=== PATIENT | male | born 1945 | race Caucasian/White ===

== ENCOUNTER 2016-10-23 12:42 | Inpatient (IN) | payer MEDICARE ==
[2016-10-23] MEDS ORDERED: NORMAL SALINE 1000 ML 500 ML IV ONE ×2 (13:42→15:12)
[2016-10-23] MEDS ORDERED: IPRATROPIUM/ALBUTEROL 0.5-2.5 MG/3 ML AMPUL NEB ONE (13:42)
[2016-10-23] MEDS ORDERED: LIDOCAINE 2% URO-JET 5 ML KIT MM ONE (13:43)
--- NOTE | 2016-10-23 13:49 | ER Document Report ---
ED GI/ - General Chief Complaint: Rectal Pain Stated Complaint: RECTAL PAIN Time Seen by Provider: 10/23/16 13:27 Mode of Arrival: Medic Information source: Patient Notes: Patient presents complaining of diarrhea rectal pain for the past 12 days. Patient complains of lower abdominal pain and inability to void that started this morning. Patient states he has been leaking urine but has been unable to empty his bladder. Patient denies any fever. Patient is a poor historian and denies any medical history or surgeries although when confronted with evidence of surgery, does acknowledge that he has had toe amputations as well as cataract surgery in the past. Patient does states that he has had a cough, but states that this cough is something chronic and not new. TRAVEL OUTSIDE OF THE [place] IN LAST 30 DAYS: No - HPI Patient complains to provider of: Abdominal pain, Diarrhea, Urinary retention - This morning. No: Vomiting Onset: Other - Diarrhea 12 days, urinary retention today Timing/Duration: Persistent Quality of pain: Burning Pain Level: 5 Location: Suprapubic Associated symptoms: Diarrhea, Urinary retention. denies: Chest pain, Fever, Nausea Exacerbated by: Denies Relieved by: Denies Similar symptoms previously: No Recently seen / treated by doctor: No - Related Data Allergies/Adverse Reactions: No Known Allergies Allergy (Verified 10/23/16 16:22) Past Medical History - General Information source: Patient Cannot obtain history due to: Other - pt poor historian - Social History Smoking Status: Current Every Day Smoker - Packs per day Frequency of alcohol use: Heavy - drinks 6 pack beer daily Drug Abuse: None Occupation: none Lives with: Alone Family History: Reviewed & Not Pertinent - Medical History Medical History: Negative Past Surgical History: Reports: Hx Orthopedic Surgery - toe amputation, Other - cataract Review of Systems - Review of Systems Constitutional: No symptoms reported. denies: Fever, Recent illness EENT: No symptoms reported Cardiovascular: No symptoms reported. denies: Chest pain, Dizziness Respiratory: Cough - chronic. denies: Hemoptysis, Short of breath Gastrointestinal: Abdominal pain, Diarrhea, Fecal incontinence. denies: Nausea , Vomiting, Poor appetite, Black stools, Rectal bleeding Genitourinary: Retention - since this am Male Genitourinary: No symptoms reported Musculoskeletal: Other - chronic wound to right foot. denies: Back pain Skin: Other - chronic ulcer to right foot Hematologic/Lymphatic: No symptoms reported Neurological/Psychological: No symptoms reported Physical Exam - Vital signs Vitals: Temp Resp Pulse Ox 98.2 F 16 95 10/23/16 13:02 10/23/16 13:02 10/23/16 13:02 - General General appearance: Appears well, Alert In distress: None - HEENT Head: Normocephalic, Atraumatic Eyes: Normal Conjunctiva: Normal Nasal: Normal Mouth/Lips: Normal Mucous membranes: Normal Neck: Normal, Supple. No: Lymphadenopathy - Respiratory Respiratory status: No respiratory distress Chest status: Nontender Breath sounds: Nonproductive cough, Rhonchi, Wheezing Chest palpation: Normal - Cardiovascular Rhythm: Regular Heart sounds: S1 appreciated, S2 appreciated - Abdominal Inspection: Normal Distension: Distended bladder Tenderness: Tender - suprapubic - Rectal Tenderness: Yes Notes: Patient with skin erythema and breakdown to perirectal area and sacral area pain for contact dermatitis versus early developing cellulitis - Back Back: Normal, Nontender. No: CVA tenderness - Extremities General upper extremity: Normal strength. No: Normal color - yellow discoloration of fingers General lower extremity: Normal strength, Other - wound to right foot, hx r great toe, r 2nd toe amputation Foot: Edema, Other - erythema surrounding wounds to plantar surfarce of right foot, no purulent drainage - Neurological Neuro grossly intact: Yes Dingess Coma Scale Eye Opening: Spontaneous Erin Coma Scale Verbal: Oriented Erin Coma Scale Motor: Obeys Commands Dingess Coma Scale Total: 15 - Skin Skin Temperature: Warm Skin Moisture: Dry Skin Color: Erythema - sacral erythema with tender ulcerations between gluteal cleft Skin irregularity: other - foot ulcer x 2 right plantar foot. negative: Abscess Irregularity with: Tenderness, Inflammation Course - Re-evaluation Re-evalutation: 10/23/16 14:23 guadarrama inserted, 1700 ml drained per RN, abdominal pain now resolved. 10/23/16 16:34 Dr Rios to bedside examination, recommends giving an additional liter of IV fluids while remaining lab and reports are pending. Recommend consulting with home health for follow-up on Tuesday for recheck. 10/23/16 17:38 lactic acid results reviewed with dr Rios, recommends consulting with hospitalist for admission and treating with vancomycin and zosyn. Pt sleeping, arouses easily to voice, pt agrees with plan for admission. 10/23/16 17:[address] Velazquez who agrees to accept pt for admission. 10/23/16 17:54 - Vital Signs Vital signs: Temp Pulse Resp BP Pulse Ox 97.4 F 14 85/55 L 95 10/23/16 17:43 10/23/16 17:30 10/23/16 17:30 10/23/16 17:30 - Laboratory Result Diagrams: 10/23/16 13:56 10/23/16 13:56 Laboratory results interpreted by me: 10/23/16 10/23/16 10/23/16 13:56 13:56 13:56 RBC 3.71 L Hgb 12.5 L Hct 36.5 L MCV 99 H MCH 33.8 H Seg Neutrophils % 80.2 H Lymphocytes % 10.9 L Sodium 124.9 L Chloride 85 L Lactic Acid Calcium 7.9 L Total Bilirubin 1.4 H Direct Bilirubin 0.8 H AST 162 H Alkaline Phosphatase 225 H Ammonia < 8.7 L Albumin 2.8 L Urine Urobilinogen 10/23/16 10/23/16 13:56 14:20 RBC Hgb Hct MCV MCH Seg Neutrophils % Lymphocytes % Sodium Chloride Lactic Acid 4.0 H Calcium Total Bilirubin Direct Bilirubin AST Alkaline Phosphatase Ammonia Albumin Urine Urobilinogen 2.0 H - Diagnostic Test Radiology reviewed: Reports reviewed Discharge - Discharge Clinical Impression: Hyponatremia, Urinary retention Diarrhea Qualifiers: Diarrhea type: unspecified type Qualified Code(s): R19.7 - Diarrhea, unspecified Cellulitis Qualifiers: Site of cellulitis: extremity Site of cellulitis of extremity: lower extremity Laterality: right Qualified Code(s): L03.115 - Cellulitis of right lower limb Hypotension Qualifiers: Hypotension type: unspecified hypotension type Qualified Code(s): I95.9 - Hypotension, unspecified Condition: Stable Disposition: HOME, SELF-CARE Admitting Provider: Hospitalist
[2016-10-23] MEDS ORDERED: TRAMADOL HCL 50 MG TABLET PO ONE (13:55)
[2016-10-23 14:24] LABS: ABSOLUTE BASOPHILS # (AUTO) 0.1 10^3/uL (0.0-0.2); ABSOLUTE EOSINOPHILS # (AUTO) 0.1 10^3/uL (0.0-0.6); ABSOLUTE LYMPHOCYTES (AUTO) 0.9 10^3/uL (0.5-4.7); ABSOLUTE MONOCYTES (AUTO) 0.5 10^3/uL (0.1-1.4); ABSOLUTE NEUT (AUTO) 6.7 10^3/uL (1.7-8.2); BASOPHILS % (AUTO) 0.6 % (0-2); EOSINOPHILS % (AUTO) 1.8 % (0-6); HEMATOCRIT 36.5 % (37.9-51.0); HEMOGLOBIN 12.5 g/dL (13.5-17.0); LYMPHOCYTES % (AUTO) 10.9 % (13-45); MEAN CORPUSCULAR HEMOGLOBIN 33.8 pg (27.0-33.4); MEAN CORPUSCULAR HGB CONC 34.3 g/dL (32.0-36.0); MEAN CORPUSCULAR VOLUME 99 fl (80-97); MONOCYTES % (AUTO) 6.5 % (3-13); RED BLOOD COUNT 3.71 10^6/uL (4.35-5.55); RED CELL DISTRIBUTION WIDTH 13.2 % (11.5-14.0); SEGMENTED NEUTROPHILS % (AUTO) 80.2 % (42-78); WHITE BLOOD COUNT 8.3 10^3/uL (4.0-10.5)
[2016-10-23 14:45] LABS: ALANINE AMINOTRANSFERASE 67 U/L (21-72); ALBUMIN 2.8 g/dL (3.5-5.0); ALCOHOL 88 mg/dL (NONE DETECTED); ALKALINE PHOSPHATASE 225 U/L (38-126); ANION GAP 13 (5-19); ASPARTATE AMINO TRANSFERASE 162 U/L (17-59); BILIRUBIN,DIRECT 0.8 mg/dL (0.0-0.4); BILIRUBIN,TOTAL 1.4 mg/dL (0.2-1.3); BLOOD UREA NITROGEN 10 mg/dL (7-20); CALCIUM 7.9 mg/dL (8.4-10.2); CARBON DIOXIDE 27 mmol/L (22-30); CHLORIDE 85 mmol/L (98-107); GLUCOSE 89 mg/dL (75-110); POTASSIUM 3.7 mmol/L (3.6-5.0); SODIUM 124.9 mmol/L (137-145); TOTAL PROTEIN 7.1 g/dL (6.3-8.2)
[2016-10-23 15:40] LABS: APPEARANCE,URINE SLIGHTLY-CLOUDY; BILIRUBIN,URINE NEGATIVE (NEGATIVE); GLUCOSE, URINE NEGATIVE (NEGATIVE); KETONES,URINE NEGATIVE (NEGATIVE); LEUKOCYTE ESTERASE,URINE NEGATIVE (NEGATIVE); NITRITE,URINE NEGATIVE (NEGATIVE); PROTEIN,URINE NEGATIVE (NEGATIVE); URINE SPECIFIC GRAVITY 1.004
[2016-10-23 15:42] LABS: ADD ON TESTING BLD IN LAB ACKNOWLEDGE
[2016-10-23 15:55] LABS: MAGNESIUM 1.8 mg/dL (1.6-2.3)
[2016-10-23] MEDS ORDERED: HYDROCODONE/ACETAMINOPHEN 5-325 MG TABLET PO ONE (16:21)
[2016-10-23] MEDS ORDERED: NORMAL SALINE 1000 ML 1,000 ML IV ONE (16:33)
[2016-10-23] MEDS ORDERED: VANCOMYCIN HCL INJ 1000 MG VIAL IV ONE (17:37)
[2016-10-23] MEDS ORDERED: PIPERACILLIN/TAZOBACTAM 3.375 GM VIAL IV ONE (17:38)
[2016-10-23] MEDS ORDERED: NORMAL SALINE 1000 ML 1,000 ML IV PRN (18:17)
[2016-10-23] MEDS ORDERED: ONDANSETRON HCL INJ/PF 4 MG/2 ML SDV IV PRN (18:28)
[2016-10-23] MEDS ORDERED: ACETAMINOPHEN 325 MG TABLET PO PRN (18:28)
[2016-10-23] MEDS ORDERED: LOPERAMIDE HCL 2 MG CAPSULE PO PRN (18:38)
[2016-10-23] MEDS ORDERED: ERTAPENEM SODIUM INJ 1 GM VIAL IV SCH ×2 (18:45→19:00)
[2016-10-23] MEDS ORDERED: LORAZEPAM INJ 2 MG/1 ML VIAL IV PRN (18:58)
[2016-10-23] MEDS ORDERED: ERTAPENEM SODIUM 1 GM in NORMAL SALINE 50 ML IV ONE (19:00)
[2016-10-23] MEDS ORDERED: ERTAPENEM SODIUM INJ 1 GM VIAL IV PRN (19:01)
[2016-10-23 19:18] LABS: PROTHROMBIN TIME 13.1 SEC (11.4-15.4)
--- NOTE | 2016-10-23 19:48 | HISTORY AND PHYSICAL E ---
History and Physical NAME: ROSANNE WILCOX : 1945 AGE: 70Y ADMITTED: 10/23/2016 ROOM: ED19 PRIMARY CARE PHYSICIAN: Joshua Flores. CHIEF COMPLAINT: Diarrhea. HISTORY OF PRESENT ILLNESS: The patient is a 70-year-old male who lives alone, who drinks heavy alcohol, apparently came to the emergency room because of diarrhea of 12 days' duration. It is associated with lower abdominal pain earlier today. There is decreased urine output. Denies any chills or fever. No nausea or vomiting. The patient is able to tolerate oral intake. No recent antibiotic intake. No recent travel. The patient states that he is not ambulatory for 5 years now. No exposure to someone sick with diarrhea. In the emergency room, the patient was found to have urinary retention requiring Guadarrama catheter, and the patient's abdominal pain resolved upon placement of guadarrama catheter. The patient, however, had a decubitus ulcers stage 2 and a skin breakdown from recurrent diarrhea. Blood pressure was noted to be low with systolic in the 80s. Normal saline boluses were given, and the patient still had hypotension. Lactic acid level was elevated at 4. The patient was then referred for admission. PAST MEDICAL HISTORY: 1. Right foot ulcer. 2. Alcohol abuse. PAST SURGICAL HISTORY: 1. Amputation of the toe. 2. Cataract surgery. ALLERGIES: No reported drug allergies. SOCIAL HISTORY: The patient is a current tobacco abuser. There is heavy alcohol use. Denies drug abuse. FAMILY HISTORY: Negative for any illness. MEDICATIONS: He denies taking any medications. REVIEW OF SYSTEMS: Other than stated in the history, the patient denies any chills or fever. No dizziness or syncope. No sinus congestion. No cough. No sore throat. No chest congestion. No chest pain. No PND, orthopnea. Denies any melena, hematochezia, hematemesis. Denies dysuria as well. The patient ambulates using a walker and a which. PHYSICAL EXAMINATION: GENERAL: The patient is conscious, coherent, responds to questions appropriately. He is not in acute distress. The patient is awake. VITAL SIGNS: Blood pressure 97/62. Pulse 88. Respirations 14. Temperature 97.4. HEENT: Normocephalic/atraumatic. Pale palpebral conjunctivae. Anicteric sclerae. Pupils are sluggish. Bilateral arcus senilis. No nasal or oral discharge. Oral mucosa is dry. NECK: There is no jugular venous distention. Neck is supple with no JVD or bruit. No anterior neck mass was noticed with swallowing. CHEST: Symmetrical in expansion with no retraction. Lungs are clear to auscultation bilateral. No rales or wheezing were noted. HEART: Regular with no gallops or murmurs. ABDOMEN: Soft, nontender, nondistended. Bowel sounds were present, slightly hyperactive. No rebound. No guarding. No bruit. LOWER EXTREMITIES: Edema +1 bilateral. There is a dry ulcer on the leg bilaterally that is healing. Likewise, there is a foot ulcer on the right with scabbing but no purulent drainage. Dressing seems to be clean. B/L redness and equal temperature to touch. SKIN: On the skin on the buttocks and on the sacral area, there is a stage-2 decubitus ulcer and skin breakdown w/ surrounding redness but no foul smelling drainage.. INITIAL LABORATORY: WBC 8.3, hemoglobin 12.5, hematocrit 36.5, platelets 199,000. Sodium 124, potassium 3.7, creatinine is normal, lactic acid level of 4, AST mildly elevated at 162, alkaline phosphatase at 225. Alcohol level of 88. Abdominal x-ray: No acute abnormality. Foot x-ray shows soft tissue irregularity on the plantar aspect of the right foot. ASSESSMENT: 1. Hypotension, likely secondary to dehydration. 2. Elevated lactic acid level, probably related to hypotension. 3. Hyponatremia. 4. Diarrhea, probably infectious colitis. 5. Stage-2 decubitus ulcer of the buttocks and sacrum. 6. Urinary retention. 7. Right foot ulcer, chronic. 8. Alcohol abuse. PLAN: The patient will be admitted to [facility]. We will hydrate the patient with normal saline. We will culture the blood as well as the urine. In the meantime, I will apply Eucerin cream for the patient's decubitus ulcer. We will monitor serum sodium. We will begin intravenous antibiotic with Invanz. DVT prophylaxis with Lovenox will be placed. I will put the patient on supplemental thiamine, folic acid, and multivitamin and give Ativan as needed if withdrawal symptoms occur. Further testing depends on the initial evaluation as outlined above. DICTATING PHYSICIAN: REANNA LAFLEUR M.D. [id number] PHY#: [id number] ID: [id number] JOB#: [id number] ACCT: [id number] cc:REANNA LAFLEUR M.D. > MTDD
[2016-10-23] MEDS: MINERAL OIL/PETROLATUM,WHITE CREAM 114 GM TP SCH (23:39)
[2016-10-24] MEDS: NORMAL SALINE 1000 ML 1,000 ML IV PRN ×2 (03:49→21:26)
[2016-10-24 05:03] LABS: ABSOLUTE EOSINOPHILS # (AUTO) 0.1 10^3/uL (0.0-0.6); ABSOLUTE LYMPHOCYTES (AUTO) 0.7 10^3/uL (0.5-4.7); ABSOLUTE MONOCYTES (AUTO) 0.5 10^3/uL (0.1-1.4); ABSOLUTE NEUT (AUTO) 8.4 10^3/uL (1.7-8.2); BASOPHILS % (AUTO) 0.4 % (0-2); EOSINOPHILS % (AUTO) 0.7 % (0-6); HEMATOCRIT 31.8 % (37.9-51.0); HGB HCT DIFFERENCE 1.2; LYMPHOCYTES % (AUTO) 6.7 % (13-45); MEAN CORPUSCULAR HEMOGLOBIN 34.1 pg (27.0-33.4); MEAN CORPUSCULAR HGB CONC 34.6 g/dL (32.0-36.0); MEAN CORPUSCULAR VOLUME 99 fl (80-97); MONOCYTES % (AUTO) 5.5 % (3-13); RED BLOOD COUNT 3.23 10^6/uL (4.35-5.55); RED CELL DISTRIBUTION WIDTH 13.1 % (11.5-14.0); SEGMENTED NEUTROPHILS % (AUTO) 86.7 % (42-78); WHITE BLOOD COUNT 9.7 10^3/uL (4.0-10.5)
[2016-10-24 05:26] LABS: ANION GAP 5 (5-19); BLOOD UREA NITROGEN 10 mg/dL (7-20); CALCIUM 7.4 mg/dL (8.4-10.2); CARBON DIOXIDE 27 mmol/L (22-30); CHLORIDE 95 mmol/L (98-107); CREATININE RESULT 0.64 mg/dL (0.52-1.25); GLUCOSE 91 mg/dL (75-110); MAGNESIUM 1.8 mg/dL (1.6-2.3); PHOSPHORUS 3.4 mg/dL (2.5-4.5); POTASSIUM 4.1 mmol/L (3.6-5.0); SODIUM 126.7 mmol/L (137-145)
[2016-10-24] MEDS: LANSOPRAZOLE 30 MG TAB.RAP.DR PO SCH (05:37)
[2016-10-24] MEDS: ENOXAPARIN SODIUM INJ 40 MG/0.4 ML DISP.SYRIN SUBCUT SCH (10:50)
[2016-10-24] MEDS: ERTAPENEM SODIUM 1 GM in NORMAL SALINE 50 ML IV SCH (10:52)
[2016-10-24] MEDS: MINERAL OIL/PETROLATUM,WHITE CREAM 114 GM TP SCH ×4 (10:53→21:24)
--- NOTE | 2016-10-24 11:18 | PDOC PROGRESS REPORT ---
Subjective Progress Note for:: 10/24/16 Subjective:: Diarrhea resolved. No cough, SOB, PND, orthopnea. No N/V/chills nor fever. Feeling better this morning. Physical Exam Vital Signs: Temp Pulse Resp BP Pulse Ox 98.0 F 97 18 116/70 96 10/24/16 07:18 10/24/16 07:18 10/24/16 07:18 10/24/16 07:18 10/24/16 07:18 Intake & Output 10/23/16 10/24/16 10/25/16 06:59 06:59 06:59 Intake Total 1322 Output Total 1300 Balance 22 Weight 93.3 kg General appearance: PRESENT: no acute distress, cooperative Head exam: PRESENT: normocephalic Eye exam: PRESENT: EOMI Ear exam: ABSENT: drainage Mouth exam: PRESENT: dry mucosa Neck exam: ABSENT: JVD Respiratory exam: PRESENT: clear to auscultation pastora. ABSENT: rhonchi, wheezes Cardiovascular exam: PRESENT: RRR. ABSENT: gallop GI/Abdominal exam: PRESENT: normal bowel sounds, soft. ABSENT: distended, tenderness Extremities exam: PRESENT: +1 edema - B/L Neurological exam: PRESENT: alert, awake, oriented to situation Skin exam: PRESENT: dry, warm. ABSENT: cyanosis Results Laboratory Results: 10/24/16 04:12 10/24/16 04:12 10/24/16 10/24/16 04:12 04:12 WBC 9.7 RBC 3.23 L Hgb 11.0 L Hct 31.8 L MCV 99 H MCH 34.1 H MCHC 34.6 RDW 13.1 Plt Count 145 L Seg Neutrophils % 86.7 H Lymphocytes % 6.7 L Monocytes % 5.5 Eosinophils % 0.7 Basophils % 0.4 Absolute Neutrophils 8.4 H Absolute Lymphocytes 0.7 Absolute Monocytes 0.5 Absolute Eosinophils 0.1 Absolute Basophils 0.0 Sodium 126.7 L Potassium 4.1 Chloride 95 L Carbon Dioxide 27 Anion Gap 5 BUN 10 Creatinine 0.64 Est GFR ( Amer) > 60 Est GFR (Non-Af Amer) > 60 Glucose 91 Calcium 7.4 L Phosphorus 3.4 Magnesium 1.8 Impressions: Renal Ultrasound 10/23/16 00:00 IMPRESSION: Normal sonographic appearance of the kidneys. The bladder is decompressed by a Bazzi catheter. Acute Abdomen Series 10/23/16 13:41 IMPRESSION: NO RADIOGRAPHIC EVIDENCE FOR ACUTE ABDOMINAL DISEASE. Foot X-Ray 10/23/16 14:22 IMPRESSION: Soft tissue irregularity involving the plantar surfaces of the forefoot in this patient with marked postsurgical and posttraumatic change. While no definite periosteal reaction is seen to confirm osteomyelitis, given the baseline irregularity of the structures, this entity is not entirely excluded. Assessment & Plan - Diagnosis (1) Sepsis Qualifiers: Sepsis type: sepsis due to unspecified organism Qualified Code(s): A41.9 - Sepsis, unspecified organism Is this a current diagnosis for this admission?: Yes (2) Diarrhea Qualifiers: Diarrhea type: infectious Qualified Code(s): A09 - Infectious gastroenteritis and colitis, unspecified Is this a current diagnosis for this admission?: Yes (3) Hyponatremia Is this a current diagnosis for this admission?: Yes (4) Hypotension Qualifiers: Hypotension type: unspecified hypotension type Qualified Code(s): I95.9 - Hypotension, unspecified Is this a current diagnosis for this admission?: Yes (5) Urinary retention Is this a current diagnosis for this admission?: Yes (6) Decubitus ulcer Qualifiers: Pressure ulcer location: contiguous region involving back and buttock Pressure ulcer stage: stage 2 Laterality: unspecified laterality Qualified Code(s): L89.42 - Pressure ulcer of contiguous site of back, buttock and hip, stage 2 Is this a current diagnosis for this admission?: Yes (7) Foot ulcer, right Qualifiers: Non-pressure ulcer stage: unspecified non-pressure ulcer stage Qualified Code(s): L97.519 - Non-pressure chronic ulcer of other part of right foot with unspecified severity Is this a current diagnosis for this admission?: Yes (8) Ambulatory dysfunction Is this a current diagnosis for this admission?: Yes - Time Time Spent with patient: 25-34 minutes - Plan Summary Plan Summary: Begin vancomycin. Continue invanz. Monitor electrolytes and creatinine. Follow cultures. Continue IV hydration.
[2016-10-24] MEDS ORDERED: VANCOMYCIN HCL 1,250 MG in DEXTROSE 5%-WATER 250 ML IV ONE (12:00)
[2016-10-24] MEDS: NORMAL SALINE 1000 ML 1,000 ML with THIAMINE HCL 100 MG, MVI, ADULT NO.1 WITH VIT K 10 ... IV SCH ×4 (12:06)
[2016-10-24] MEDS ORDERED: TRAMADOL HCL 50 MG TABLET PO PRN (14:42)
--- NOTE | 2016-10-24 17:10 | EKG REPORT ---
SEVERITY:- ABNORMAL ECG - ATRIAL FIBRILLATION LOW VOLTAGE THROUGHOUT BORDERLINE R WAVE PROGRESSION, ANTERIOR LEADS BORDERLINE PROLONGED QT INTERVAL : Confirmed by: Gretchen Herring MD 24-Oct-2016 17:09:58
[2016-10-24] MEDS ORDERED: ERTAPENEM SODIUM 1 GM in NORMAL SALINE 50 ML IV SCH (18:00)
[2016-10-24] MEDS: VANCOMYCIN HCL 1,250 MG in DEXTROSE 5%-WATER 250 ML IV SCH (18:40)
[2016-10-25] MEDS: VANCOMYCIN HCL 1,250 MG in DEXTROSE 5%-WATER 250 ML IV SCH ×2 (03:07→09:27)
[2016-10-25] MEDS: NORMAL SALINE 1000 ML 1,000 ML IV PRN ×2 (03:10→16:06)
[2016-10-25 05:08] LABS: ANION GAP 5 (5-19); BLOOD UREA NITROGEN 8 mg/dL (7-20); CALCIUM 7.4 mg/dL (8.4-10.2); CARBON DIOXIDE 27 mmol/L (22-30); CHLORIDE 98 mmol/L (98-107); CREATININE RESULT 0.55 mg/dL (0.52-1.25); GLUCOSE 96 mg/dL (75-110); POTASSIUM 3.3 mmol/L (3.6-5.0); SODIUM 130.4 mmol/L (137-145)
[2016-10-25] MEDS: LANSOPRAZOLE 30 MG TAB.RAP.DR PO SCH (05:53)
[2016-10-25] MEDS: MINERAL OIL/PETROLATUM,WHITE CREAM 114 GM TP SCH ×4 (09:26→21:29)
[2016-10-25] MEDS ORDERED: VANCOMYCIN HCL INJ 1000 MG VIAL IV SCH (10:00)
[2016-10-25] MEDS: ENOXAPARIN SODIUM INJ 40 MG/0.4 ML DISP.SYRIN SUBCUT SCH (10:07)
--- NOTE | 2016-10-25 10:31 | PDOC PROGRESS REPORT ---
Subjective Progress Note for:: 10/25/16 Subjective:: Slightly improved today than yesterday according to the patient. Staff reports wheezing at times, he had hx of smoking. No temperature spikes, no respiratory distress reported. No reported diarrhea. Blood cultures growing gram-positive cocci and gram-negative rods. Physical Exam Vital Signs: Temp Pulse Resp BP Pulse Ox 97.4 F 89 19 111/72 91 L 10/25/16 07:55 10/25/16 07:55 10/25/16 07:55 10/25/16 07:55 10/25/16 07:55 Intake & Output 10/24/16 10/25/16 10/26/16 06:59 06:59 06:59 Intake Total 1322 3646 Output Total 1300 1075 Balance 22 2571 Weight 93.3 kg 100.4 kg General appearance: PRESENT: no acute distress, cooperative Head exam: PRESENT: normocephalic Eye exam: PRESENT: conjunctiva pale, EOMI Mouth exam: PRESENT: moist, neck supple Neck exam: ABSENT: JVD Respiratory exam: PRESENT: rhonchi - few bilateral. ABSENT: wheezes Cardiovascular exam: PRESENT: gallop, RRR GI/Abdominal exam: PRESENT: soft. ABSENT: distended, tenderness Extremities exam: PRESENT: other - Lower extremity edema improved, ulcers stable. Neurological exam: PRESENT: alert, awake Skin exam: PRESENT: dry, warm. ABSENT: cyanosis Results Laboratory Results: 10/24/16 04:12 10/25/16 04:03 10/25/16 04:03 Sodium 130.4 L Potassium 3.3 L Chloride 98 Carbon Dioxide 27 Anion Gap 5 BUN 8 Creatinine 0.55 Est GFR ( Amer) > 60 Est GFR (Non-Af Amer) > 60 Glucose 96 Calcium 7.4 L Impressions: Renal Ultrasound 10/23/16 00:00 IMPRESSION: Normal sonographic appearance of the kidneys. The bladder is decompressed by a Bazzi catheter. Acute Abdomen Series 10/23/16 13:41 IMPRESSION: NO RADIOGRAPHIC EVIDENCE FOR ACUTE ABDOMINAL DISEASE. Foot X-Ray 10/23/16 14:22 IMPRESSION: Soft tissue irregularity involving the plantar surfaces of the forefoot in this patient with marked postsurgical and posttraumatic change. While no definite periosteal reaction is seen to confirm osteomyelitis, given the baseline irregularity of the structures, this entity is not entirely excluded. Assessment & Plan - Diagnosis (1) Sepsis Qualifiers: Sepsis type: sepsis due to unspecified organism Qualified Code(s): A41.9 - Sepsis, unspecified organism Is this a current diagnosis for this admission?: Yes (2) Diarrhea Qualifiers: Diarrhea type: infectious Qualified Code(s): A09 - Infectious gastroenteritis and colitis, unspecified Is this a current diagnosis for this admission?: Yes (3) Hyponatremia Is this a current diagnosis for this admission?: Yes (4) Hypotension Qualifiers: Hypotension type: unspecified hypotension type Qualified Code(s): I95.9 - Hypotension, unspecified Is this a current diagnosis for this admission?: Yes (5) Urinary retention Is this a current diagnosis for this admission?: Yes (6) Decubitus ulcer Qualifiers: Pressure ulcer location: contiguous region involving back and buttock Pressure ulcer stage: stage 2 Laterality: unspecified laterality Qualified Code(s): L89.42 - Pressure ulcer of contiguous site of back, buttock and hip, stage 2 Is this a current diagnosis for this admission?: Yes (7) Foot ulcer, right Qualifiers: Non-pressure ulcer stage: unspecified non-pressure ulcer stage Qualified Code(s): L97.519 - Non-pressure chronic ulcer of other part of right foot with unspecified severity Is this a current diagnosis for this admission?: Yes (8) Ambulatory dysfunction Is this a current diagnosis for this admission?: Yes - Time Time Spent with patient: 25-34 minutes - Plan Summary Plan Summary: Continue current antibiotics, follow cultures, replace potassium and recheck electrolytes in the morning. We will discontinue IV fluids, give as needed nebulizer, obtain a chest x-ray. If the wheezing persists, patient may need to be treated for underlying COPD. Continue wound care.
--- NOTE | 2016-10-25 11:22 | RADIOLOGY REPORT (SQ) ---
EXAM DESCRIPTION: CHEST SINGLE VIEW COMPLETED DATE/TIME: 10/25/2016 11:08 am REASON FOR STUDY: SOB COMPARISON: None. EXAM PARAMETERS: NUMBER OF VIEWS: One view. TECHNIQUE: Single frontal radiographic view of the chest acquired. RADIATION DOSE: NA LIMITATIONS: None. FINDINGS: LUNGS AND PLEURA: Elevated right hemidiaphragm. Ill-defined airspace disease in the right lung base. Ill-defined oval density in the mid right lung. Left lung clear. MEDIASTINUM AND HILAR STRUCTURES: No masses. Contour normal. HEART AND VASCULAR STRUCTURES: Heart normal in size. Normal vasculature. BONES: No acute findings. HARDWARE: None in the chest. OTHER: No other significant finding. IMPRESSION: ILL-DEFINED AIRSPACE DISEASE IN THE RIGHT LUNG BASE WHICH HAS DEVELOPED SINCE THE PRIOR STUDY, CONCERNING FOR PNEUMONIA. UNDERLYING MASS IN THE MID RIGHT LUNG CANNOT BE EXCLUDED. RECOMMEN D FOLLOW-UP CHEST X-RAY AFTER TREATMENT AND IF THE FINDINGS PERSIST THEN CT WOULD BE INDICATED. TECHNICAL DOCUMENTATION: JOB ID: [id number]
[2016-10-25] MEDS: ALBUTEROL SULFATE 0.042% NEB (1.25 MG/3 ML) AMPUL NEB PRN ×2 (11:29→19:48)
[2016-10-25] MEDS: ERTAPENEM SODIUM 1 GM in NORMAL SALINE 50 ML IV SCH (12:11)
[2016-10-25] MEDS: POTASSI CL 20 MEQ/50 ML RIDER 50 ML IV SCH ×3 (12:13→15:54)
[2016-10-25] MEDS: NORMAL SALINE 1000 ML 1,000 ML with THIAMINE HCL 100 MG, MVI, ADULT NO.1 WITH VIT K 10 ... IV SCH ×4 (12:51)
[2016-10-26 05:33] LABS: BLOOD UREA NITROGEN 6 mg/dL (7-20); CALCIUM 7.7 mg/dL (8.4-10.2); CARBON DIOXIDE 28 mmol/L (22-30); CHLORIDE 102 mmol/L (98-107); CREATININE RESULT 0.51 mg/dL (0.52-1.25); GLUCOSE 94 mg/dL (75-110); POTASSIUM 3.9 mmol/L (3.6-5.0); SODIUM 134.1 mmol/L (137-145)
[2016-10-26 05:35] LABS: ANION GAP 4 (5-19)
[2016-10-26] MEDS: LANSOPRAZOLE 30 MG TAB.RAP.DR PO SCH (05:40)
[2016-10-26] MEDS: VANCOMYCIN HCL 1,250 MG in DEXTROSE 5%-WATER 250 ML IV SCH ×2 (05:41→17:54)
[2016-10-26] MEDS: ERTAPENEM SODIUM 1 GM in NORMAL SALINE 50 ML IV SCH (09:44)
[2016-10-26] MEDS: ENOXAPARIN SODIUM INJ 40 MG/0.4 ML DISP.SYRIN SUBCUT SCH (09:45)
[2016-10-26] MEDS: MINERAL OIL/PETROLATUM,WHITE CREAM 114 GM TP SCH ×4 (09:46→22:16)
--- NOTE | 2016-10-26 12:14 | PDOC PROGRESS REPORT ---
Subjective Progress Note for:: 10/26/16 Subjective:: Patient initially worked with speech therapy and did have some coughing but refused to do any further testing and refused to have a modified barium swallow Physical Exam Vital Signs: Temp Pulse Resp BP Pulse Ox 97.4 F 94 21 H 97/54 L 92 10/26/16 10:41 10/26/16 10:41 10/26/16 10:41 10/26/16 10:41 10/26/16 10:41 Intake & Output 10/25/16 10/26/16 10/27/16 06:59 06:59 06:59 Intake Total 3646 2820 Output Total 1075 1000 Balance 2571 1820 Weight 100.4 kg 100.6 kg General appearance: PRESENT: no acute distress Eye exam: PRESENT: conjunctiva pink. ABSENT: scleral icterus Mouth exam: PRESENT: moist, tongue midline Neck exam: ABSENT: JVD Respiratory exam: PRESENT: rhonchi - Coarse rhonchi bilaterally. ABSENT: rales , wheezes Cardiovascular exam: PRESENT: RRR. ABSENT: diastolic murmur, rubs, systolic murmur GI/Abdominal exam: PRESENT: normal bowel sounds, soft. ABSENT: distended, guarding, mass, organolmegaly, rebound, tenderness Extremities exam: ABSENT: calf tenderness, clubbing, pedal edema Neurological exam: PRESENT: alert, awake, oriented to person, oriented to place , oriented to time, oriented to situation, CN II-XII grossly intact. ABSENT: motor sensory deficit Psychiatric exam: PRESENT: appropriate affect Skin exam: PRESENT: dry, intact, warm. ABSENT: cyanosis, rash Results Laboratory Results: 10/24/16 04:12 10/26/16 04:11 10/26/16 04:11 Sodium 134.1 L Potassium 3.9 Chloride 102 Carbon Dioxide 28 Anion Gap 4 L BUN 6 L Creatinine 0.51 L Est GFR ( Amer) > 60 Est GFR (Non-Af Amer) > 60 Glucose 94 Calcium 7.7 L Impressions: Renal Ultrasound 10/23/16 00:00 IMPRESSION: Normal sonographic appearance of the kidneys. The bladder is decompressed by a Bazzi catheter. Acute Abdomen Series 10/23/16 13:41 IMPRESSION: NO RADIOGRAPHIC EVIDENCE FOR ACUTE ABDOMINAL DISEASE. Foot X-Ray 10/23/16 14:22 IMPRESSION: Soft tissue irregularity involving the plantar surfaces of the forefoot in this patient with marked postsurgical and posttraumatic change. While no definite periosteal reaction is seen to confirm osteomyelitis, given the baseline irregularity of the structures, this entity is not entirely excluded. Chest X-Ray 10/25/16 00:00 IMPRESSION: ILL-DEFINED AIRSPACE DISEASE IN THE RIGHT LUNG BASE WHICH HAS DEVELOPED SINCE THE PRIOR STUDY, CONCERNING FOR PNEUMONIA. UNDERLYING MASS IN THE MID RIGHT LUNG CANNOT BE EXCLUDED. RECOMMEND FOLLOW-UP CHEST X-RAY AFTER TREATMENT AND IF THE FINDINGS PERSIST THEN CT WOULD BE INDICATED. Assessment & Plan - Diagnosis (1) Sepsis Qualifiers: Sepsis type: sepsis due to unspecified organism Qualified Code(s): A41.9 - Sepsis, unspecified organism Is this a current diagnosis for this admission?: YesPlan: Patient had sepsis from colitis. The patient has been improving with antibiotics. Patient is on vancomycin and ertapenem (2) Hypotension Qualifiers: Hypotension type: unspecified hypotension type Qualified Code(s): I95.9 - Hypotension, unspecified Is this a current diagnosis for this admission?: YesPlan: Resolved (3) Decubitus ulcer Qualifiers: Pressure ulcer location: contiguous region involving back and buttock Pressure ulcer stage: stage 2 Laterality: unspecified laterality Qualified Code(s): L89.42 - Pressure ulcer of contiguous site of back, buttock and hip, stage 2 Is this a current diagnosis for this admission?: YesPlan: Continue local wound care (4) Foot ulcer, right Qualifiers: Non-pressure ulcer stage: unspecified non-pressure ulcer stage Qualified Code(s): L97.519 - Non-pressure chronic ulcer of other part of right foot with unspecified severity Is this a current diagnosis for this admission?: YesPlan: Continue with offloading pressure (5) Hyponatremia Is this a current diagnosis for this admission?: YesPlan: Improving. (6) Urinary retention Is this a current diagnosis for this admission?: Yes - Time Time Spent with patient: 25-34 minutes - Inpatient Certification Medical Necessity: Need for IV Antibiotics
[2016-10-26] MEDS: NORMAL SALINE 1000 ML 1,000 ML with THIAMINE HCL 100 MG, MVI, ADULT NO.1 WITH VIT K 10 ... IV SCH ×4 (13:19)
[2016-10-27 04:48] LABS: ABSOLUTE BASOPHILS # (AUTO) 0.1 10^3/uL (0.0-0.2); ABSOLUTE EOSINOPHILS # (AUTO) 0.2 10^3/uL (0.0-0.6); ABSOLUTE LYMPHOCYTES (AUTO) 1.2 10^3/uL (0.5-4.7); ABSOLUTE MONOCYTES (AUTO) 0.6 10^3/uL (0.1-1.4); ABSOLUTE NEUT (AUTO) 5.9 10^3/uL (1.7-8.2); BASOPHILS % (AUTO) 1.1 % (0-2); EOSINOPHILS % (AUTO) 2.3 % (0-6); HEMATOCRIT 32.2 % (37.9-51.0); HEMOGLOBIN 11.1 g/dL (13.5-17.0); HGB HCT DIFFERENCE 1.1; LYMPHOCYTES % (AUTO) 14.8 % (13-45); MEAN CORPUSCULAR HEMOGLOBIN 34.5 pg (27.0-33.4); MEAN CORPUSCULAR HGB CONC 34.5 g/dL (32.0-36.0); MEAN CORPUSCULAR VOLUME 100 fl (80-97); MONOCYTES % (AUTO) 7.2 % (3-13); RED BLOOD COUNT 3.21 10^6/uL (4.35-5.55); RED CELL DISTRIBUTION WIDTH 13.2 % (11.5-14.0); SEGMENTED NEUTROPHILS % (AUTO) 74.6 % (42-78); WHITE BLOOD COUNT 7.9 10^3/uL (4.0-10.5)
[2016-10-27 05:06] LABS: BLOOD UREA NITROGEN 4 mg/dL (7-20); CALCIUM 7.8 mg/dL (8.4-10.2); CARBON DIOXIDE 29 mmol/L (22-30); CHLORIDE 102 mmol/L (98-107); GLUCOSE 89 mg/dL (75-110)
[2016-10-27 05:22] LABS: ANION GAP 5 (5-19); POTASSIUM 3.8 mmol/L (3.6-5.0); SODIUM 135.5 mmol/L (137-145)
[2016-10-27] MEDS: VANCOMYCIN HCL 1,250 MG in DEXTROSE 5%-WATER 250 ML IV SCH ×2 (05:53→18:38)
[2016-10-27] MEDS: LANSOPRAZOLE 30 MG TAB.RAP.DR PO SCH (05:53)
[2016-10-27] MEDS: NORMAL SALINE 1000 ML 1,000 ML IV PRN (05:54)
--- NOTE | 2016-10-27 10:22 | PDOC PROGRESS REPORT ---
Subjective Progress Note for:: 10/27/16 Subjective:: Has positive blood cultures. He denies any complaints today. Physical Exam Vital Signs: Temp Pulse Resp BP Pulse Ox 97.3 F 97 16 112/65 87 L 10/27/16 03:33 10/27/16 07:00 10/27/16 03:33 10/27/16 03:33 10/27/16 03:33 Intake & Output 10/26/16 10/27/16 10/28/16 06:59 06:59 06:59 Intake Total 2820 2308 Output Total 1000 500 Balance 1820 1808 Weight 100.6 kg 101 kg General appearance: PRESENT: no acute distress Eye exam: PRESENT: conjunctiva pink. ABSENT: scleral icterus Mouth exam: PRESENT: moist, tongue midline Neck exam: ABSENT: JVD Respiratory exam: PRESENT: clear to auscultation pastora. ABSENT: rales, rhonchi, wheezes Cardiovascular exam: PRESENT: RRR. ABSENT: diastolic murmur, rubs, systolic murmur GI/Abdominal exam: PRESENT: normal bowel sounds, soft. ABSENT: distended, guarding, mass, organolmegaly, rebound, tenderness Extremities exam: ABSENT: full ROM Neurological exam: PRESENT: alert, awake, oriented to person, oriented to place , oriented to time, oriented to situation, CN II-XII grossly intact. ABSENT: motor sensory deficit Psychiatric exam: PRESENT: appropriate affect Skin exam: PRESENT: dry, intact, warm. ABSENT: cyanosis, rash Results Laboratory Results: 10/27/16 03:53 10/27/16 03:53 10/27/16 10/27/16 03:53 03:53 WBC 7.9 RBC 3.21 L Hgb 11.1 L Hct 32.2 L MCV 100 H MCH 34.5 H MCHC 34.5 RDW 13.2 Plt Count 174 Seg Neutrophils % 74.6 Lymphocytes % 14.8 Monocytes % 7.2 Eosinophils % 2.3 Basophils % 1.1 Absolute Neutrophils 5.9 Absolute Lymphocytes 1.2 Absolute Monocytes 0.6 Absolute Eosinophils 0.2 Absolute Basophils 0.1 Sodium 135.5 L Potassium 3.8 Chloride 102 Carbon Dioxide 29 Anion Gap 5 BUN 4 L Creatinine 0.50 L Est GFR ( Amer) > 60 Est GFR (Non-Af Amer) > 60 Glucose 89 Calcium 7.8 L Impressions: Renal Ultrasound 10/23/16 00:00 IMPRESSION: Normal sonographic appearance of the kidneys. The bladder is decompressed by a Bazzi catheter. Acute Abdomen Series 10/23/16 13:41 IMPRESSION: NO RADIOGRAPHIC EVIDENCE FOR ACUTE ABDOMINAL DISEASE. Foot X-Ray 10/23/16 14:22 IMPRESSION: Soft tissue irregularity involving the plantar surfaces of the forefoot in this patient with marked postsurgical and posttraumatic change. While no definite periosteal reaction is seen to confirm osteomyelitis, given the baseline irregularity of the structures, this entity is not entirely excluded. Chest X-Ray 10/25/16 00:00 IMPRESSION: ILL-DEFINED AIRSPACE DISEASE IN THE RIGHT LUNG BASE WHICH HAS DEVELOPED SINCE THE PRIOR STUDY, CONCERNING FOR PNEUMONIA. UNDERLYING MASS IN THE MID RIGHT LUNG CANNOT BE EXCLUDED. RECOMMEND FOLLOW-UP CHEST X-RAY AFTER TREATMENT AND IF THE FINDINGS PERSIST THEN CT WOULD BE INDICATED. Assessment & Plan - Diagnosis (1) Sepsis Qualifiers: Sepsis type: sepsis due to unspecified organism Qualified Code(s): A41.9 - Sepsis, unspecified organism Is this a current diagnosis for this admission?: YesPlan: Patient had sepsis from colitis. The patient has been improving with antibiotics. Patient is on vancomycin and ertapenem the positive blood cultures. We will switch to p.o. antibiotics once results of the blood cultures are known. We will plan on hopefully discharging home Tuesday. (2) Hypotension Qualifiers: Hypotension type: unspecified hypotension type Qualified Code(s): I95.9 - Hypotension, unspecified Is this a current diagnosis for this admission?: YesPlan: Resolved (3) Decubitus ulcer Qualifiers: Pressure ulcer location: contiguous region involving back and buttock Pressure ulcer stage: stage 2 Laterality: unspecified laterality Qualified Code(s): L89.42 - Pressure ulcer of contiguous site of back, buttock and hip, stage 2 Is this a current diagnosis for this admission?: YesPlan: Continue local wound care (4) Foot ulcer, right Qualifiers: Non-pressure ulcer stage: unspecified non-pressure ulcer stage Qualified Code(s): L97.519 - Non-pressure chronic ulcer of other part of right foot with unspecified severity Is this a current diagnosis for this admission?: YesPlan: Continue with offloading pressure (5) Hyponatremia Is this a current diagnosis for this admission?: YesPlan: Improving. (6) Urinary retention Is this a current diagnosis for this admission?: Yes - Time Time Spent with patient: 25-34 minutes - Inpatient Certification Medical Necessity: Need for IV Antibiotics
[2016-10-27] MEDS: MINERAL OIL/PETROLATUM,WHITE CREAM 114 GM TP SCH ×4 (12:28→21:20)
[2016-10-27] MEDS: ENOXAPARIN SODIUM INJ 40 MG/0.4 ML DISP.SYRIN SUBCUT SCH (12:28)
[2016-10-27] MEDS: ERTAPENEM SODIUM 1 GM in NORMAL SALINE 50 ML IV SCH (12:28)
[2016-10-27] MEDS: NORMAL SALINE 1000 ML 1,000 ML with THIAMINE HCL 100 MG, MVI, ADULT NO.1 WITH VIT K 10 ... IV SCH ×4 (12:29)
[2016-10-28] MEDS: LANSOPRAZOLE 30 MG TAB.RAP.DR PO SCH (05:19)
[2016-10-28] MEDS: VANCOMYCIN HCL 1,250 MG in DEXTROSE 5%-WATER 250 ML IV SCH (05:21)
[2016-10-28] MEDS: NORMAL SALINE 1000 ML 1,000 ML IV PRN (05:21)
[2016-10-28 06:08] LABS: ABSOLUTE BASOPHILS # (AUTO) 0.1 10^3/uL (0.0-0.2); ABSOLUTE EOSINOPHILS # (AUTO) 0.2 10^3/uL (0.0-0.6); ABSOLUTE LYMPHOCYTES (AUTO) 1.4 10^3/uL (0.5-4.7); ABSOLUTE MONOCYTES (AUTO) 0.7 10^3/uL (0.1-1.4); ABSOLUTE NEUT (AUTO) 5.2 10^3/uL (1.7-8.2); BASOPHILS % (AUTO) 1.1 % (0-2); EOSINOPHILS % (AUTO) 2.2 % (0-6); HEMATOCRIT 32.2 % (37.9-51.0); HEMOGLOBIN 10.9 g/dL (13.5-17.0); HGB HCT DIFFERENCE 0.5; LYMPHOCYTES % (AUTO) 18.3 % (13-45); MEAN CORPUSCULAR HEMOGLOBIN 33.9 pg (27.0-33.4); MEAN CORPUSCULAR HGB CONC 33.9 g/dL (32.0-36.0); MEAN CORPUSCULAR VOLUME 100 fl (80-97); MONOCYTES % (AUTO) 9.7 % (3-13); RED BLOOD COUNT 3.22 10^6/uL (4.35-5.55); RED CELL DISTRIBUTION WIDTH 13.6 % (11.5-14.0); SEGMENTED NEUTROPHILS % (AUTO) 68.7 % (42-78); WHITE BLOOD COUNT 7.6 10^3/uL (4.0-10.5)
[2016-10-28 07:03] LABS: ANION GAP 6 (5-19); BLOOD UREA NITROGEN 3 mg/dL (7-20); CALCIUM 7.8 mg/dL (8.4-10.2); CARBON DIOXIDE 29 mmol/L (22-30); CHLORIDE 102 mmol/L (98-107); CREATININE RESULT 0.52 mg/dL (0.52-1.25); GLUCOSE 84 mg/dL (75-110); POTASSIUM 3.5 mmol/L (3.6-5.0); SODIUM 136.8 mmol/L (137-145)
[2016-10-28] MEDS: MULTIVITAMIN TABLET PO SCH (09:53)
[2016-10-28] MEDS: CIPROFLOXACIN HCL 500 MG TABLET PO SCH ×2 (09:53→21:46)
[2016-10-28] MEDS: ENOXAPARIN SODIUM INJ 40 MG/0.4 ML DISP.SYRIN SUBCUT SCH (09:53)
[2016-10-28] MEDS: FOLIC ACID 1 MG TABLET PO SCH (09:53)
[2016-10-28] MEDS: THIAMINE HCL 100 MG TABLET PO SCH (09:53)
[2016-10-28] MEDS: MINERAL OIL/PETROLATUM,WHITE CREAM 114 GM TP SCH ×4 (09:54→21:47)
--- NOTE | 2016-10-28 09:56 | PDOC PROGRESS REPORT ---
Subjective Progress Note for:: 10/28/16 Subjective:: Has positive blood cultures. He denies any complaints today. Physical Exam Vital Signs: Temp Pulse Resp BP Pulse Ox 97.5 F 80 18 101/59 L 90 L 10/28/16 07:26 10/28/16 07:26 10/28/16 07:26 10/28/16 07:26 10/28/16 07:26 Intake & Output 10/27/16 10/28/16 10/29/16 06:59 06:59 06:59 Intake Total 2308 1470 Output Total 500 725 Balance 1808 745 Weight 101 kg 106 kg General appearance: PRESENT: no acute distress Eye exam: PRESENT: conjunctiva pink. ABSENT: scleral icterus Mouth exam: PRESENT: moist, tongue midline Neck exam: ABSENT: JVD Respiratory exam: PRESENT: clear to auscultation pastora. ABSENT: rales, rhonchi, wheezes Cardiovascular exam: PRESENT: RRR. ABSENT: diastolic murmur, rubs, systolic murmur GI/Abdominal exam: PRESENT: normal bowel sounds, soft. ABSENT: distended, guarding, mass, organolmegaly, rebound, tenderness Extremities exam: ABSENT: calf tenderness, clubbing, pedal edema Neurological exam: PRESENT: alert, awake, oriented to person, oriented to place , oriented to time, oriented to situation, CN II-XII grossly intact. ABSENT: motor sensory deficit Psychiatric exam: PRESENT: appropriate affect Skin exam: PRESENT: dry, intact, warm. ABSENT: cyanosis, rash Results Laboratory Results: 10/28/16 05:35 10/28/16 05:35 10/28/16 10/28/16 05:35 05:35 WBC 7.6 RBC 3.22 L Hgb 10.9 L Hct 32.2 L MCV 100 H MCH 33.9 H MCHC 33.9 RDW 13.6 Plt Count 178 Seg Neutrophils % 68.7 Lymphocytes % 18.3 Monocytes % 9.7 Eosinophils % 2.2 Basophils % 1.1 Absolute Neutrophils 5.2 Absolute Lymphocytes 1.4 Absolute Monocytes 0.7 Absolute Eosinophils 0.2 Absolute Basophils 0.1 Sodium 136.8 L Potassium 3.5 L Chloride 102 Carbon Dioxide 29 Anion Gap 6 BUN 3 L Creatinine 0.52 Est GFR ( Amer) > 60 Est GFR (Non-Af Amer) > 60 Glucose 84 Calcium 7.8 L Impressions: Renal Ultrasound 10/23/16 00:00 IMPRESSION: Normal sonographic appearance of the kidneys. The bladder is decompressed by a Bazzi catheter. Acute Abdomen Series 10/23/16 13:41 IMPRESSION: NO RADIOGRAPHIC EVIDENCE FOR ACUTE ABDOMINAL DISEASE. Foot X-Ray 10/23/16 14:22 IMPRESSION: Soft tissue irregularity involving the plantar surfaces of the forefoot in this patient with marked postsurgical and posttraumatic change. While no definite periosteal reaction is seen to confirm osteomyelitis, given the baseline irregularity of the structures, this entity is not entirely excluded. Chest X-Ray 10/25/16 00:00 IMPRESSION: ILL-DEFINED AIRSPACE DISEASE IN THE RIGHT LUNG BASE WHICH HAS DEVELOPED SINCE THE PRIOR STUDY, CONCERNING FOR PNEUMONIA. UNDERLYING MASS IN THE MID RIGHT LUNG CANNOT BE EXCLUDED. RECOMMEND FOLLOW-UP CHEST X-RAY AFTER TREATMENT AND IF THE FINDINGS PERSIST THEN CT WOULD BE INDICATED. Assessment & Plan - Diagnosis (1) Sepsis Qualifiers: Sepsis type: sepsis due to unspecified organism Qualified Code(s): A41.9 - Sepsis, unspecified organism Is this a current diagnosis for this admission?: YesPlan: Patient had sepsis from colitis. The patient has been improving with antibiotics. We will DC the IV antibiotics and start on p.o. Cipro and Augmentin. Patient is growing multiple organisms including Acinetobacter, staph , strep, enterococcus. We will plan on hopefully discharging home Tuesday. (2) Hypotension Qualifiers: Hypotension type: unspecified hypotension type Qualified Code(s): I95.9 - Hypotension, unspecified Is this a current diagnosis for this admission?: YesPlan: Resolved (3) Decubitus ulcer Qualifiers: Pressure ulcer location: contiguous region involving back and buttock Pressure ulcer stage: stage 2 Laterality: unspecified laterality Qualified Code(s): L89.42 - Pressure ulcer of contiguous site of back, buttock and hip, stage 2 Is this a current diagnosis for this admission?: YesPlan: Continue local wound care (4) Foot ulcer, right Qualifiers: Non-pressure ulcer stage: unspecified non-pressure ulcer stage Qualified Code(s): L97.519 - Non-pressure chronic ulcer of other part of right foot with unspecified severity Is this a current diagnosis for this admission?: YesPlan: Continue with offloading pressure (5) Hyponatremia Is this a current diagnosis for this admission?: YesPlan: Improving. (6) Urinary retention Is this a current diagnosis for this admission?: Yes - Time Time Spent with patient: 25-34 minutes - Inpatient Certification Medical Necessity: Need Close Monitoring Due to Risk of Patient Decompensation - Plan Summary Plan Summary: if He continues to improve on oral antibiotics will plan on discharge to home tomorrow with home health.
[2016-10-28] MEDS: AMOXICILLIN TR/POT CLAVULANATE 500-125 MG TAB PO SCH ×2 (16:30→21:46)
[2016-10-29 05:03] LABS: ABSOLUTE BASOPHILS # (AUTO) 0.1 10^3/uL (0.0-0.2); ABSOLUTE EOSINOPHILS # (AUTO) 0.1 10^3/uL (0.0-0.6); ABSOLUTE LYMPHOCYTES (AUTO) 1.1 10^3/uL (0.5-4.7); ABSOLUTE MONOCYTES (AUTO) 0.6 10^3/uL (0.1-1.4); ABSOLUTE NEUT (AUTO) 5.3 10^3/uL (1.7-8.2); BASOPHILS % (AUTO) 1.4 % (0-2); HEMATOCRIT 34.8 % (37.9-51.0); HEMOGLOBIN 11.9 g/dL (13.5-17.0); HGB HCT DIFFERENCE 0.9; LYMPHOCYTES % (AUTO) 15.4 % (13-45); MEAN CORPUSCULAR HEMOGLOBIN 34.3 pg (27.0-33.4); MEAN CORPUSCULAR HGB CONC 34.2 g/dL (32.0-36.0); MEAN CORPUSCULAR VOLUME 100 fl (80-97); MONOCYTES % (AUTO) 8.2 % (3-13); RED BLOOD COUNT 3.48 10^6/uL (4.35-5.55); RED CELL DISTRIBUTION WIDTH 13.5 % (11.5-14.0); WHITE BLOOD COUNT 7.3 10^3/uL (4.0-10.5)
[2016-10-29 05:29] LABS: ANION GAP 6 (5-19); BLOOD UREA NITROGEN 4 mg/dL (7-20); CALCIUM 8.1 mg/dL (8.4-10.2); CARBON DIOXIDE 29 mmol/L (22-30); CHLORIDE 102 mmol/L (98-107); CREATININE RESULT 0.56 mg/dL (0.52-1.25); GLUCOSE 81 mg/dL (75-110); POTASSIUM 3.5 mmol/L (3.6-5.0); SODIUM 137.2 mmol/L (137-145)
[2016-10-29] MEDS: LANSOPRAZOLE 30 MG TAB.RAP.DR PO SCH (06:06)
[2016-10-29] MEDS: AMOXICILLIN TR/POT CLAVULANATE 500-125 MG TAB PO SCH (06:06)
[2016-10-29] MEDS: FOLIC ACID 1 MG TABLET PO SCH (11:58)
[2016-10-29] MEDS: CIPROFLOXACIN HCL 500 MG TABLET PO SCH (11:58)
[2016-10-29] MEDS: MULTIVITAMIN TABLET PO SCH (11:58)
[2016-10-29] MEDS: MINERAL OIL/PETROLATUM,WHITE CREAM 114 GM TP SCH (11:59)
[2016-10-29] MEDS: THIAMINE HCL 100 MG TABLET PO SCH (11:59)
[2016-10-29] MEDS: ENOXAPARIN SODIUM INJ 40 MG/0.4 ML DISP.SYRIN SUBCUT SCH (11:59)
[2016-10-29 12:41] VITALS: BP 101/63
--- NOTE | 2016-10-29 15:03 | PDOC DISCHARGE SUMMARY ---
General - Admit/Disc Date/PCP Admission Date/Primary Care Provider: 10/23/16 18:29 CARTRE NICOLAS DPM Discharge Date: 10/29/16 - Discharge Diagnosis (1) Sepsis Is this a current diagnosis for this admission?: YesSummary: Secondary to infectious colitis. (2) Hypotension Is this a current diagnosis for this admission?: YesSummary: Secondary to sepsis from colitis. (3) Decubitus ulcer Is this a current diagnosis for this admission?: Yes (4) Foot ulcer, right Is this a current diagnosis for this admission?: Yes (5) Hyponatremia Is this a current diagnosis for this admission?: Yes (6) Urinary retention Is this a current diagnosis for this admission?: YesSummary: Patient required a Bazzi catheter be placed and was unable to urinate after it was removed and it was replaced. Will follow up with urology as an outpatient. - Additional Information Resuscitation Status: Full Code Discharge Diet: Cardiac Discharge Activity: Activity As Tolerated Home Medications: Amox Tr/Potassium Clavulanate [Augmentin "500" Tablet] 1 tab PO Q8 #16 tablet 10/29/16 Ciprofloxacin HCl [Cipro 500 mg Tablet] 500 mg PO Q12 #16 tablet 10/29/16 Lansoprazole [Prevacid 30 mg Odt Tablet] 30 mg PO Q6AM 30 Days 10/29/16 Tramadol HCl [Ultram 50 mg Tablet] 50 mg PO Q6HP PRN 30 Days 10/29/16 History of Present Illness History of Present Illness: ROSANNE WILCOX is a 71 year old male who lives alone and is a heavy drinker of alcohol presented to the emergency room after having 12 days worth of diarrhea. Patient also has some crampy lower abdominal pain. The patient was found to have urinary retention also. The patient was noted to be hypotensive with blood pressure in the 80s and was diagnosed as having sepsis most likely secondary to colitis. Patient admitted for IV fluids and IV antibiotics. Hospital Course Hospital Course: 70-year-old gentleman who lives alone and is a heavy drinker of alcohol presented to the emergency room after having 12 days worth of diarrhea. Patient was noted to have sepsis secondary to colitis. The patient was started on IV antibiotics and rule out multiple organisms from his cultures. The patient was initially treated with IV antibiotics but was switched over to Augmentin and Cipro. Patient will complete a total of 14 days of antibiotic therapy. Patient while hospitalized also had problems with urinary retention requiring Bazzi catheter. This catheter was removed however he was unable to urinate on his own and his Bazzi catheter was replaced. He will follow up with urology as an outpatient and hopefully be able to have his catheter DC'd as an outpatient. Patient also was noted to have sacral and heel ulcers. The patient lives at home but reports he has a good support system at home. Patient was treated with local wound care in regards to this. The patient was seen by speech therapy because of some concern about aspiration however he was adamant that he would not have any testing done and was not going to change his diet. The patient improved and it was felt he could be discharged to home. He will follow-up as an outpatient with urology as well as primary care doctor. Physical Exam Vital Signs: Temp Pulse Resp BP Pulse Ox 98.6 F 80 18 101/63 100 10/29/16 12:38 10/29/16 12:38 10/29/16 12:38 10/29/16 12:38 10/29/16 12:38 Intake & Output 10/28/16 10/29/16 10/30/16 06:59 06:59 06:59 Intake Total 1470 460 240 Output Total 725 800 0 Balance 745 -340 240 Weight 106 kg 104.2 kg General appearance: PRESENT: no acute distress Eye exam: PRESENT: conjunctiva pink. ABSENT: scleral icterus Mouth exam: PRESENT: moist, tongue midline Neck exam: ABSENT: JVD Respiratory exam: PRESENT: clear to auscultation pastora. ABSENT: rales, rhonchi, wheezes Cardiovascular exam: PRESENT: RRR. ABSENT: diastolic murmur, rubs, systolic murmur Pulses: PRESENT: normal dorsalis pedis pul GI/Abdominal exam: PRESENT: normal bowel sounds, soft. ABSENT: distended, guarding, mass, organolmegaly, rebound, tenderness Rectal exam: PRESENT: deferred Extremities exam: ABSENT: calf tenderness, clubbing, pedal edema Neurological exam: PRESENT: alert, awake, oriented to person, oriented to place , oriented to time, oriented to situation, CN II-XII grossly intact. ABSENT: motor sensory deficit Psychiatric exam: PRESENT: appropriate affect Skin exam: PRESENT: other - Dressings in place on the sacrum and heel. Results Laboratory Results: 05/26/17 04:12 10/29/16 04:12 10/29/16 10/29/16 04:12 04:12 WBC 7.3 RBC 3.48 L Hgb 11.9 L Hct 34.8 L MCV 100 H MCH 34.3 H MCHC 34.2 RDW 13.5 Plt Count 172 Seg Neutrophils % 73.0 Lymphocytes % 15.4 Monocytes % 8.2 Eosinophils % 2.0 Basophils % 1.4 Absolute Neutrophils 5.3 Absolute Lymphocytes 1.1 Absolute Monocytes 0.6 Absolute Eosinophils 0.1 Absolute Basophils 0.1 Sodium 137.2 Potassium 3.5 L Chloride 102 Carbon Dioxide 29 Anion Gap 6 BUN 4 L Creatinine 0.56 Est GFR ( Amer) > 60 Est GFR (Non-Af Amer) > 60 Glucose 81 Calcium 8.1 L Impressions: Renal Ultrasound 10/23/16 00:00 IMPRESSION: Normal sonographic appearance of the kidneys. The bladder is decompressed by a Bazzi catheter. Acute Abdomen Series 10/23/16 13:41 IMPRESSION: NO RADIOGRAPHIC EVIDENCE FOR ACUTE ABDOMINAL DISEASE. Foot X-Ray 10/23/16 14:22 IMPRESSION: Soft tissue irregularity involving the plantar surfaces of the forefoot in this patient with marked postsurgical and posttraumatic change. While no definite periosteal reaction is seen to confirm osteomyelitis, given the baseline irregularity of the structures, this entity is not entirely excluded. Chest X-Ray 10/25/16 00:00 IMPRESSION: ILL-DEFINED AIRSPACE DISEASE IN THE RIGHT LUNG BASE WHICH HAS DEVELOPED SINCE THE PRIOR STUDY, CONCERNING FOR PNEUMONIA. UNDERLYING MASS IN THE MID RIGHT LUNG CANNOT BE EXCLUDED. RECOMMEND FOLLOW-UP CHEST X-RAY AFTER TREATMENT AND IF THE FINDINGS PERSIST THEN CT WOULD BE INDICATED. Qualifiers PATEINT BEING DISCHARGED WITH ANY OF THE FOLLOWING DIAGNOSIS?: No Plan Discharge Plan: Patient is discharged home in stable condition. Will follow up with primary care doctor in 1 week and will follow up with urology in 1-2 weeks. Time Spent: Greater than 30 Minutes
== END 2016-10-29 13:46 | disposition home health service (06) | DRG 872 ==
LOC: ER 12:42 → EH 18:17 → UNDOADMIN 18:17 → EH 18:29 → 3N 21:45
DX: A41.9 Sepsis, unspecified organism (principal); A09 Infectious gastroenteritis and colitis, unspecified; E87.1 Hypo-osmolality and hyponatremia; L97.929 Non-pressure chronic ulcer of unspecified part of left lower leg with unspecified severity; L97.919 Non-pressure chronic ulcer of unspecified part of right lower leg with unspecified severity; L97.411 Non-pressure chronic ulcer of right heel and midfoot limited to breakdown of skin; F10.10 Alcohol abuse, uncomplicated; R33.9 Retention of urine, unspecified; B96.89 Other specified bacterial agents as the cause of diseases classified elsewhere; E86.0 Dehydration; L89.322 Pressure ulcer of left buttock, stage 2; L89.312 Pressure ulcer of right buttock, stage 2; L89.152 Pressure ulcer of sacral region, stage 2; Y90.4 Blood alcohol level of 80-99 mg/100 ml; F17.200 Nicotine dependence, unspecified, uncomplicated; Z89.411 Acquired absence of right great toe; Z89.429 Acquired absence of other toe(s), unspecified side
CPT/HCPCS: 36415; 51702; 71010; 74022; 76770; 80048; 80053; 80202; 80307; 81001; 82140; 83605; 83690; 83735; 84100; 84443; 85025; 85610; 87040; 87045; 87077; 87086; 87186; 87205; 87493; 93005; 93010; 94640; 96361; 96374; 99285; G8996-GN; G8997-GN; G8998-GN; J1335; J1650; J2060; J2543; J3370; J3411; J3480; J3490; J7030; J7060; J7620

== ENCOUNTER 2016-11-17 13:49 | Inpatient (IN) | payer MEDICARE ==
[2016-11-17] MEDS ORDERED: RINGERS SOLUTION,LACTATED 1,000 ML IV ONE ×2 (14:46→17:22)
[2016-11-17] MEDS ORDERED: VANCOMYCIN HCL INJ 1000 MG VIAL IV ONE ×2 (14:57→19:00)
[2016-11-17] MEDS ORDERED: PIPERACILLIN/TAZOBACTAM 3.375 GM VIAL IV ONE (14:57)
--- NOTE | 2016-11-17 15:04 | ER Document Report ---
ED General - General Chief Complaint: General Weakness Stated Complaint: GENERAL WEAKNESS Time Seen by Provider: 11/17/16 14:42 Mode of Arrival: Medic Information source: Patient, [facility] Records Notes: This is a 71-year-old male with a history of heavy alcohol use who lives alone and does not see a doctor regularly who presents with persistent diarrhea. Of note he was hospitalized at this facility from October 23 - October 29 of this year with sepsis secondary to infectious colitis. He was discharged home with home health. He states that he has completed his oral antibiotics but that his diarrhea has persisted and he has multiple episodes of watery diarrhea every day. He presents via EMS which he called secondary to weakness. He states that he is not eating at home and he feels too weak to walk. He is not taking care of himself. He has a brother that lives down the road and assists him some. TRAVEL OUTSIDE OF THE [place] IN LAST 30 DAYS: No - Related Data Allergies/Adverse Reactions: No Known Allergies Allergy (Verified 10/23/16 16:22) Past Medical History - General Information source: Patient, [facility] Records - Social History Smoking Status: Current Every Day Smoker Frequency of alcohol use: Heavy Drug Abuse: None Lives with: Alone Family History: Reviewed & Not Pertinent Past Surgical History: Reports: Hx Orthopedic Surgery - toe amputation, Other - cataract Review of Systems - Review of Systems Notes: pt is poor historian Constitutional: Weakness. denies: Fever EENT: No symptoms reported Cardiovascular: No symptoms reported. denies: Chest pain Respiratory: Cough, Short of breath Gastrointestinal: See HPI, Abdominal pain, Diarrhea, Poor appetite, Poor fluid intake. denies: Vomiting Genitourinary: No symptoms reported Skin: Other - painful skin breakdown to perineal area Hematologic/Lymphatic: No symptoms reported Neurological/Psychological: No symptoms reported Physical Exam - Vital signs Vitals: Resp BP Pulse Ox 20 85/59 L 95 11/17/16 14:20 11/17/16 14:20 11/17/16 14:20 - Notes Notes: PHYSICAL EXAMINATION: GENERAL: ill appearing, obese male, somewhat pale, alert and conversant HEAD: Atraumatic, normocephalic. EYES: Pupils equal round and reactive to light, extraocular movements intact, sclera anicteric, conjunctiva are normal. ENT: nares patent, oropharynx clear without exudates. mucous membranes dry NECK: Normal range of motion, supple without lymphadenopathy LUNGS: Breath sounds clear to auscultation anteriorly bilaterally and equal. No wheezes rales or rhonchi. HEART: Tachycardic, Regular rate and rhythm without murmurs ABDOMEN: Soft, somewhat distended, nontender, normoactive bowel sounds. No guarding, no rebound. EXTREMITIES: extensive cellulitis to B posterior thighs (extending from perineal area), healing ulcer R medial foot, erythema and edema to L anterior wiley NEUROLOGICAL: alert and oriented x4, no gross focal motor or sensory deficits noted PSYCH: Normal mood, normal affect. SKIN: signficant erythema and skin breakdown to perineal and buttock area, and extending up anterior abdominal wall. No necrotic areas. No crepitus. No fluctuance. Course - Re-evaluation Re-evalutation: 11/17/16 16:14 I consulted the surgeon hospital personnel director Dr. Rosenbaum, regarding the perineal cellulitis/ soft tissue infection. Dr. Rosenbaum does not feel that surgical debridement is needed at this time. 11/17/[address] Cam for admission. Blood pressure responding well to IV fluids. - Vital Signs Vital signs: Temp Pulse Resp BP Pulse Ox 98.3 F 17 92/55 L 94 11/17/16 17:30 11/17/16 19:06 11/17/16 19:06 11/17/16 19:06 - Laboratory Result Diagrams: 11/17/16 15:05 11/17/16 21:19 Laboratory results interpreted by me: 11/17/16 11/17/16 11/17/16 15:05 15:05 15:05 WBC 15.7 H RBC 3.30 L Hgb 10.7 L Hct 32.0 L Seg Neuts % (Manual) 94 H Band Neutrophils % 1 L Lymphocytes % (Manual) 4 L Monocytes % (Manual) 1 L Abs Neuts (Manual) 14.9 H PT 17.1 H Sodium 118.6 L* Chloride 87 L Creatinine 1.40 H Est GFR (Non-Af Amer) 50 L Calcium 7.2 L Magnesium Total Bilirubin 2.2 H Direct Bilirubin 1.3 H AST 61 H Alkaline Phosphatase 210 H Albumin 2.1 L Urine Protein Urine Blood Ur Leukocyte Esterase 06/14/17 06/14/17 06/14/17 15:30 21:19 21:19 WBC RBC Hgb Hct Seg Neuts % (Manual) Band Neutrophils % Lymphocytes % (Manual) Monocytes % (Manual) Abs Neuts (Manual) PT Sodium 122.4 L Chloride 88 L Creatinine 1.31 H Est GFR (Non-Af Amer) 54 L Calcium 7.2 L Magnesium 1.5 L Total Bilirubin Direct Bilirubin AST Alkaline Phosphatase Albumin Urine Protein 100 H Urine Blood SMALL H Ur Leukocyte Esterase SMALL H Critical Care Note - Critical Care Note Total time excluding time spent on procedures (mins): 40 - minutes of critical care time spent in direct contact evaluating and reevaluating the patient, treating symptoms, reviewing labs and studies and speaking with family and consultants excluding any procedures Discharge - Discharge Clinical Impression: Cellulitis of abdominal wall, Cellulitis of perineum, Hyponatremia, Alcohol abuse, Acute kidney injury Sepsis Qualifiers: Sepsis type: sepsis due to unspecified organism Qualified Code(s): A41.9 - Sepsis, unspecified organism Condition: Serious Disposition: ADMITTED INPATIENT Admitting Provider: Hospitalist - Dr. Cam Unit Admitted: ICU
[2016-11-17 15:22] LABS: HEMOGLOBIN 10.7 g/dL (13.5-17.0); HGB HCT DIFFERENCE 0.1; MEAN CORPUSCULAR HEMOGLOBIN 32.3 pg (27.0-33.4); MEAN CORPUSCULAR HGB CONC 33.4 g/dL (32.0-36.0); MEAN CORPUSCULAR VOLUME 97 fl (80-97); RED CELL DISTRIBUTION WIDTH 13.3 % (11.5-14.0); WHITE BLOOD COUNT 15.7 10^3/uL (4.0-10.5)
[2016-11-17 15:28] LABS: PROTHROMBIN TIME 17.1 SEC (11.4-15.4)
--- NOTE | 2016-11-17 15:36 | RADIOLOGY REPORT (SQ) ---
EXAM DESCRIPTION: CHEST SINGLE VIEW COMPLETED DATE/TIME: 11/17/2016 3:27 pm REASON FOR STUDY: hypotension, recent pna COMPARISON: 10/25/2016 EXAM PARAMETERS: NUMBER OF VIEWS: One view. TECHNIQUE: Single frontal radiographic view of the chest acquired. RADIATION DOSE: NA LIMITATIONS: None. FINDINGS: LUNGS AND PLEURA: Previously noted opacity in the right lung base has resolved in comparis on the prior study. There is asymmetric elevation the right hemidiaphragm comparison the left, simil ar to prior studies. No pneumothorax. No significant effusion. MEDIASTINUM AND HILAR STRUCTURES: No masses. Contour normal. HEART AND VASCULAR STRUCTURES: Cardiac size is stable. No pulmonary vascular congestion. BONES: No acute findings. HARDWARE: EKG leads overlie the chest OTHER: No other significant finding. IMPRESSION: Resolution of previously noted airspace opacity in the right infrahilar region/right maurisio g base. No new focal opacities identified. Stable eventration of the right hemidiaphragm TECHNICAL DOCUMENTATION: JOB ID: [id number]
[2016-11-17 15:48] LABS: VENOUS BLOOD BASE EXCESS 2.8 mmol/L; VENOUS BLOOD HCO3 28.2 mmol/L (20-32); VENOUS BLOOD PCO2 47.2 mmHg (35-63); VENOUS BLOOD PH 7.39 (7.30-7.42)
[2016-11-17 15:49] LABS: ALANINE AMINOTRANSFERASE 47 U/L (21-72); ALBUMIN 2.1 g/dL (3.5-5.0); ALKALINE PHOSPHATASE 210 U/L (38-126); ASPARTATE AMINO TRANSFERASE 61 U/L (17-59); BILIRUBIN,DIRECT 1.3 mg/dL (0.0-0.4); BILIRUBIN,TOTAL 2.2 mg/dL (0.2-1.3); BLOOD UREA NITROGEN 12 mg/dL (7-20); CALCIUM 7.2 mg/dL (8.4-10.2); CARBON DIOXIDE 24 mmol/L (22-30); CHLORIDE 87 mmol/L (98-107); GLUCOSE 82 mg/dL (75-110); POTASSIUM 4.5 mmol/L (3.6-5.0); TOTAL PROTEIN 6.4 g/dL (6.3-8.2)
[2016-11-17 15:50] LABS: ANION GAP 8 (5-19)
[2016-11-17 15:52] LABS: BAND NEUTROPHILS % (MANUAL) 1 % (3-5); BASOPHILS % (MANUAL) 0 % (0-2); EOSINOPHILS % (MANUAL) 0 % (0-6); LYMPHOCYTES % (MANUAL) 4 % (13-45); TOTAL CELLS COUNTED 100
[2016-11-17 15:55] LABS: ALCOHOL < 10 mg/dL (NONE DETECTED)
[2016-11-17 15:56] LABS: PLATELET CLUMPS PRESENT; TARGET CELLS SLIGHT
[2016-11-17 15:57] LABS: SODIUM 118.6 mmol/L (137-145)
[2016-11-17 16:13] LABS: APPEARANCE,URINE TURBID; BILIRUBIN,URINE NEGATIVE (NEGATIVE); GLUCOSE, URINE NEGATIVE (NEGATIVE); KETONES,URINE NEGATIVE (NEGATIVE); LEUKOCYTE ESTERASE,URINE SMALL (NEGATIVE); NITRITE,URINE NEGATIVE (NEGATIVE); PROTEIN,URINE 100 mg/dL (NEGATIVE); URINE SPECIFIC GRAVITY 1.008; UROBILINOGEN,URINE NEGATIVE mg/dL (<2.0)
[2016-11-17 16:15] LABS: URINE BARBITURATES SCREEN NEGATIVE; URINE METHADONE SCREEN NEGATIVE; URINE OPIATES LOW NEGATIVE; URINE PHENCYCLIDINE SCREEN NEGATIVE
--- NOTE | 2016-11-17 18:38 | RADIOLOGY REPORT (SQ) ---
EXAM DESCRIPTION: CT ABD/PELVIS WITH IV ONLY COMPLETED DATE/TIME: 11/17/2016 6:03 pm REASON FOR STUDY: sepsis, abdominal pain COMPARISON: None. TECHNIQUE: CT scan of the abdomen and pelvis performed using helical scanning technique with dynamic intravenous contrast injection. No oral contrast. Images reviewed with lung, soft tissue, and bone windows. Reconstructed coronal and sagittal MPR images reviewed. Delayed images for evaluation of the urinary system also acquired. All images stored on PACS. All CT scanners at this facility use dose modulation, iterative reconstruction, and/or weight based d osing when appropriate to reduce radiation dose to as low as reasonably achievable (ALARA). [facility]: Dose Right [facility]: CareDose [facility]: Dose Right [facility]: Teradose 4D [facility]: [employer] CONTRAST TYPE AND DOSE: contrast/concentration: Isovue 370.00 mg/ml; Total Contrast Delivered: 100.0 ml; Total Saline Delivered: 50.0 ml RENAL FUNCTION: Creatinine 1.4 RADIATION DOSE: 43.89. LIMITATIONS: None. FINDINGS: LOWER CHEST: Small bilateral pleural effusions right greater than left. LIVER: Normal size. No masses. Marked fatty infiltration. Perihepatic ascites. SPLEEN: Normal size. No focal lesions. PANCREAS: No masses. No significant calcifications. No adjacent inflammation or peripancreatic fluid collections. Pancreatic duct not dilated. GALLBLADDER: No identified stones by CT criteria. No inflammatory changes to suggest cholecystitis. ADRENAL GLANDS: No significant masses or asymmetry. RIGHT KIDNEY AND URETER: No solid masses. No significant calcifications. No hydronephrosis or hyd roureter. LEFT KIDNEY AND URETER: No solid masses. No significant calcifications. No hydronephrosis or hydr oureter. AORTA AND VESSELS: 2.8 infrarenal abdominal aortic aneurysm. RETROPERITONEUM: Multiple small retroperitoneal and mesenteric lymph nodes of indeterminate etiology. BOWEL AND PERITONEAL CAVITY: There is free fluid in the right lower quadrant and in the pelvis. APPENDIX: The appendix is not definitely identified. PELVIS: Free fluid. Bazzi catheter in the bladder. ABDOMINAL WALL: No masses. No hernias. BONES: No significant or acute findings. OTHER: No other significant finding. IMPRESSION: Perihepatic ascites. There is also fluid in the pelvis and in the right lower quadrant. The appendix is not visualized and therefore, appendicitis not completely excluded. There multiple small nodes in the retroperitoneum and in the mesentery which are most likely reactive . There is marked fatty infiltration of the liver. TECHNICAL DOCUMENTATION: JOB ID: [id number] Quality ID # [id number]: Final reports with documentation of one or more dose reduction techniques (e.g., Au tomated exposure control, adjustment of the mA and/or kV according to patient size, use of iterative reconstruction technique) 2010 [employer]- All Rights Reserved
--- NOTE | 2016-11-17 20:48 | CONSULTATION REPORT E ---
Consultation Report NAME: ROSANNE WILCOX : 1945 AGE: 71Y DATE: 11/17/2016 ROOM: ED A TO: KELECHI BLAIR M.D. FROM: JULIO C MCCAULEY M.D. Requesting Physician REASON FOR CONSULTATION: The patient with generalized weakness and redness along the perineal area in the lower abdomen. The patient also noted to have hypotension when seen in the emergency room. HISTORY OF PRESENT ILLNESS: This is a 71-year-old male who has been having diarrhea for the past few days. He was hospitalized at [place] from 10/29/16 with sepsis secondary to infectious colitis. He was discharged on oral antibiotics but his diarrhea persisted. He claims multiple episodes of watery diarrhea every day. The patient brought to the emergency room because of severe weakness. ALLERGIES: No known. PAST MEDICAL HISTORY: [facility] records and patient. SOCIAL HISTORY: Currently smokes every day. Alcohol use is heavy. Drug abuse none. Lives alone. FAMILY HISTORY: Noncontributory. PAST SURGICAL HISTORY: 1. Toe amputation. 2. Cataract surgery. REVIEW OF SYSTEMS: The patient is a poor historian. CONSTITUTIONAL: Patient has generalized weakness, denies fever. EENT: No symptoms reported. CARDIOVASCULAR: No chest pains. RESPIRATORY: Complaining of some cough and shortness of breath. GASTROINTESTINAL: As in HPI. Having some abdominal pains and diarrhea and poor appetite. Denies vomiting. GENITOURINARY: No dysuria. SKIN: Painful skin breakdown to perineal area. HEMATOLOGIC SYMPTOMS: None reported. NEUROLOGIC SYMPTOMS: None reported. PHYSICAL EXAMINATION: VITAL SIGNS: Respirations 20, blood pressure 85/59, pulse oximetry of 95% on room air. LUNGS: Were clear. HEART: Showed regular sinus rhythm. ABDOMEN: Soft, nontender. The lower abdomen is erythematous and mildly tender. GENITOURINARY/RECTAL: On the perineal area along the scrotal area the skin is markedly erythematous and tender but no evidence of abscess or any collection. He has some areas with powder flakes, according to his friend. IMPRESSION: Sepsis with cellulitis along the perineal area. No evidence of Dipesh gangrene at this time. RECOMMENDATIONS: We can follow the patient with medical attending. DICTATING PHYSICIAN: KELECHI BLAIR M.D. [id number] PHY#: [id number] ID: [id number] JOB#: [id number] ACCT: [id number] cc:KELECHI BLAIR M.D. >
[2016-11-17] MEDS ORDERED: THIAMINE HCL 100 MG in NORMAL SALINE 50 ML IV ONE (21:00)
[2016-11-17] MEDS ORDERED: VANCOMYCIN HCL 0 MG in DEXTROSE 5%-WATER 250 ML IV NR (21:45)
[2016-11-17] MEDS ORDERED: PHARMACY COMMUNICATION ORDER MC SCH (21:45)
[2016-11-17] MEDS ORDERED: LORAZEPAM 1 MG TABLET PO PRN (21:47)
[2016-11-17] MEDS ORDERED: IPRATROPIUM/ALBUTEROL 0.5-2.5 MG/3 ML AMPUL NEB PRN (21:53)
[2016-11-17] MEDS ORDERED: CEFAZOLIN 1 GM/D5W RTU 50 ML IV SCH (22:00)
[2016-11-17] MEDS ORDERED: NICOTINE 21 MG/24 HR PATCH.TD24 TD PRN (22:02)
[2016-11-17] MEDS ORDERED: ACETAMINOPHEN 325 MG TABLET PO PRN (22:02)
[2016-11-17 22:18] LABS: ANION GAP 8 (5-19); BLOOD UREA NITROGEN 12 mg/dL (7-20); CALCIUM 7.2 mg/dL (8.4-10.2); CARBON DIOXIDE 26 mmol/L (22-30); CHLORIDE 88 mmol/L (98-107); CREATININE RESULT 1.31 mg/dL (0.52-1.25); GLUCOSE 77 mg/dL (75-110); POTASSIUM 4.6 mmol/L (3.6-5.0); SODIUM 122.4 mmol/L (137-145)
--- NOTE | 2016-11-17 22:27 | PDOC H&P ---
History of Present Illness Admission Date/PCP: 11/17/16 19:45 ELEANOR PRIETO PA-C Patient complains of: weak, diarrhea History of Present Illness: ROSANNE WILCOX is a 71 year old male, 2 pack-a-day smoker, heavy alcohol use, who lives alone, who presents to the emergency room for evaluation of above complaints. Patient has been discussed with emergency room physician who evaluated the patient. Hospitalized on our service October 23 through the of this year with final diagnoses including sepsis, felt secondary to infectious colitis although C. difficile cultures were negative. Diagnoses also include hypotension decubitus ulcers of buttocks and right foot and urinary retention requiring application of Bazzi catheter which is since been removed. Chest x-ray during that hospital stay also revealed probable right lower lobe pneumonia. Was discharged on Cipro and Augmentin, which he states he took as prescribed. Discharge summary reviewed. Normally no daily medications. States diarrhea has persisted. Multiple watery stools per day. Possibly some blood in the stool. Mild occasional abdominal discomfort. However, denies chest pain. No nausea vomiting, fever or chills. Has had a recent persistent cough. Systolic pressures have been as low as 85, although are gradually coming up with IV fluids along with antibiotic treatment. Has what appears to be a prominent probable fungal rash involving his lower abdominal wall, groin and perineum. Prior to my seeing the patient, he was seen by on-call general surgery who felt that no surgical intervention is warranted. He has also been complaining of significant burning stinging pain of his posterior thighs due to rash/cellulitis noted on exam. Brother lives down the road from him and provides some assistance. Goes to wound clinic every 3 weeks or so. Home health has been coming out 2-3 times a week for dressing changes on his right foot and left lower leg. States he is able to ambulate with a walker, but from overall examination of this gentleman, he likely spends most of his days just lying in bed. Laboratory results are listed in [facility] and are reviewed. X-ray summary results are listed below, with full report(s) reviewed. . EKG reviewed and compared to prior tracing from the of last month. Social history/personal habits: R. Lives alone. Retired. Has children. 2 pack-a-day smoker. Heavy alcohol use. Denies illicit drug use. Allergies/adverse reactions are listed in [facility] and are reviewed. Home medications none. REVIEW OF SYSTEMS: Constitutional: No fever or chills. Eyes: Wears glasses ENT: No swallowing problems or complaints. Denies hearing loss. Pulmonary: See history and present illness. Cardiovascular: No current complaints, including chest pain. Gastrointestinal: See history and present illness. Skin: See history and present illness. Hematologic: Easy bruising. Neurologic: No current complaints, including numbness or tingling. Musculoskeletal: Arthritis. Psychiatric: Denies anxiety or depression. Endocrine: No current complaints, including polyuria. Genitourinary: No current complaints, including dysuria. PHYSICAL EXAMINATION: 6 feet 2 inches tall. 107 kg. BMI 30.3 kg/m. Blood pressure 100/56. Pulse 104 and regular. 96% saturation on room air. Respirations are 18 and unlabored. Temperature 98.3. Obese chronically ill disheveled appearing male who appears a number of years older than his stated age. Appears not to feel very well. Skin is warm and dry. No subcutaneous nodules palpated. Has what appears to be an extensive fungal rash involving his lower abdominal wall groin perineum and external genitalia. States it itches quite a bit. Has approximately a 2 x 3 cm nicely healing medial right foot ulcer. very superficial ulcer overlying his left wiley, moderate sized. Clean, with multiple small buds of what appear to be granulation tissue. Several centimeter area of mild surrounding cellulitis. Mild cellulitis involving the anterior aspect of his right lower leg. Extensive superficial ulceration with associated cellulitis of both posterior thighs. ENT: Hearing grossly normal to normal conversation. Tongue midline on protrusion pink and slightly moist. Eyes: No scleral icterus. Pupils equal and reactive to light at 4 mm. [place] conjunctivae. Neck is supple and nontender to gentle active range of motion and palpation. Midline trachea. No palpable thyroid nodule mass enlargement or tenderness. Lymphatic: No palpable cervical or clavicular nodes. Neck and lymphatic exams limited by patient body habitus. Psychiatric: At best poor insight into acute and chronic medical issues. Oriented to time location and why here. Lungs: Auscultation reveals equal breath sounds bilaterally. No use of accessory respiratory muscles. Coarse breath sounds bilaterally, with occasional slightly productive cough. Cardiovascular: Heart regular rate and rhythm, without gallop murmur or rub. No carotid or abdominal aortic bruits. Mild bilateral symmetric slightly pitting calf, ankle, and pedal edema. Faintly palpable dorsalis pedis pulses. Abdomen:soft somewhat obese nontender with positive bowel sounds. Unable to adequately evaluate abdomen for masses or organomegaly due to body habitus. Extremities: Feet are warm and dry. No calf tenderness to compression. Gentle manipulation of lower extremities quite limited due to pain involving his posterior thighs. Neurologic: Moves upper extremities grossly normally. Absent Babinski. Light touch is intact at feet. Past Medical History Cardiac Medical History: Denies: Congestive Heart Failure, DVT, Myocardial Infarction, Hyperlipidema, Hypertension, Pulmonary Embolism Pulmonary Medical History: Denies: Asthma, Chronic Obstructive Pulmonary Disease (COPD), Sleep Apnea EENT Medical History: Reports: Eyes - Glasses Denies: Ears, Throat Neurological Medical History: Denies: Hemorrhagic CVA, Ischemic CVA, Seizures Endocrine Medical History: Denies: Diabetes Mellitus Type 1, Diabetes Mellitus Type 2, Hyperthyroidism, Hypothyroidism Renal/ Medical History: Reports: Other - Intermittent difficulty voiding GI Medical History: Denies: Cirrhosis, Gastroesophageal Reflux Disease, Hepatitis, Peptic Ulcer Disease Musculoskeltal Medical History: Reports: Arthritis Psychiatric Medical History: Reports: Alcohol Dependency, Tobacco Dependency Denies: Depression, General Anxiety Disorder, Substance Abuse Hematology: Reports: Other - Easy bruising Infectious Medical History: Denies: Clostridium Difficile, Hepatitis B, Hepatitis C, Methicillin- Resistant Staph Aureus Past Surgical History Past Surgical History: Reports: Orthopedic Surgery - toe amputation, Other - cataract Social History Information Source: Patient, Emergency Med Personnel, [facility] Records Lives with: Alone Smoking Status: Current Every Day Smoker Number of Years Smokin Frequency of Alcohol Use: Heavy Hx Recreational Drug Use: No Drugs: None Hx Prescription Drug Abuse: No - Advance Directive Resuscitation Status: Full Code Surrogate healthcare decision maker:: Brother Myke and/or son Yusef Family History Family History: Reviewed & Not Pertinent Parental Family History Reviewed: Yes - Uncertain cause of Children Family History Reviewed: Yes - Healthy Sibling(s) Family History Reviewed.: Yes - Healthy Medication/Allergy Home Medications: No Home Medications 11/18/16 Allergies/Adverse Reactions: No Known Allergies Allergy (Verified 10/23/16 16:22) Physical Exam Vital Signs: Temp Pulse Resp BP Pulse Ox 98.3 F 17 92/55 L 94 11/17/16 17:30 11/17/16 19:06 11/17/16 19:06 11/17/16 19:06 Results Impressions: Chest X-Ray 11/17/16 14:45 IMPRESSION: Resolution of previously noted airspace opacity in the right infrahilar region/right lung base. No new focal opacities identified. Stable eventration of the right hemidiaphragm Abdomen/Pelvis CT 11/17/16 16:06 IMPRESSION: Perihepatic ascites. There is also fluid in the pelvis and in the right lower quadrant. The appendix is not visualized and therefore, appendicitis not completely excluded. There multiple small nodes in the retroperitoneum and in the mesentery which are most likely reactive. There is marked fatty infiltration of the liver. Assessment & Plan - Diagnosis (1) ARF (acute renal failure) Qualifiers: Acute renal failure type: unspecified Qualified Code(s): N17.9 - Acute kidney failure, unspecified Is this a current diagnosis for this admission?: YesPlan: Likely due to an element of dehydration. IV fluids. Follow-up chemistry. (2) Cellulitis of left thigh Is this a current diagnosis for this admission?: YesPlan: Surgery consult. Intravenous cefepime and vancomycin. Recent blood culture results noted. Pharmacy to assist with dosing. (3) Cellulitis of right thigh Is this a current diagnosis for this admission?: Yes (4) Cough Is this a current diagnosis for this admission?: YesPlan: As needed DuoNeb. Sputum for Gram stain and culture and sensitivity. (5) Diarrhea Qualifiers: Diarrhea type: unspecified type Qualified Code(s): R19.7 - Diarrhea , unspecified Is this a current diagnosis for this admission?: YesPlan: Stool for C. difficile. (6) Hyponatremia Is this a current diagnosis for this admission?: YesPlan: Likely due primarily to alcohol intake. Serial chemistry. (7) Leg ulcer, left Qualifiers: Non-pressure ulcer stage: unspecified non-pressure ulcer stage Qualified Code(s): L97.929 - Non-pressure chronic ulcer of unspecified part of left lower leg with unspecified severity Is this a current diagnosis for this admission?: YesPlan: Surgery consult. (8) Septic shock Is this a current diagnosis for this admission?: YesPlan: Intensive care unit admission. IV fluids. Do not think vasopressor will be necessary but will certainly add if this is the case. I have strongly encouraged patient not to get out of bed, to avoid a fall with injury. Knee high SCDs contraindicated due to left leg ulcer and bilateral lower extremity cellulitis. Subcu heparin. Impression and plans were discussed with patient who concurs. Time spent in evaluation and management of patient: 95 critical-care minutes. (10) Alcohol abuse Is this a current diagnosis for this admission?: YesPlan: Daily thiamine and folic acid and multivitamin. As needed Ativan. Observe closely for signs of withdrawal. Not currently present. (11) Debility Is this a current diagnosis for this admission?: YesPlan: Physical therapy consult. Have strongly encouraged patient to consider discharge from hospital to at least assisted living environment. Discharge planning consult. (12) Foot ulcer, right Qualifiers: Non-pressure ulcer stage: unspecified non-pressure ulcer stage Qualified Code(s): L97.519 - Non-pressure chronic ulcer of other part of right foot with unspecified severity Is this a current diagnosis for this admission?: Yes (13) Rash Is this a current diagnosis for this admission?: YesPlan: Nystatin powder. (14) Tobacco dependency Is this a current diagnosis for this admission?: YesPlan: As needed nicotine patch. (15) Ambulatory dysfunction Is this a current diagnosis for this admission?: YesPlan: Physical therapy consult. - Inpatient Certification Based on my medical assessment, after consideration of the patient's comorbidities, presenting symptoms, or acuity I expect that the services needed warrant INPATIENT care.: Yes I certify that my determination is in accordance with my understanding of Medicare's requirements for reasonable and necessary INPATIENT services [42 CFR 412.3e].: Yes Medical Necessity: Significant Comorbidiites Make Outpatient Treatment Too Risky , Need Close Monitoring Due to Risk of Patient Decompensation, Need For IV Fluids, Need For Continuous Telemetry Monitoring, Need for IV Antibiotics, Risk of Diagnosis Which Will Require Inpatient Eval/Care/Monitoring Post Hospital Care: D/C or Transfer Summary
[2016-11-17] MEDS ORDERED: HEPARIN SOD (PORCINE) 5,000 UNIT/ML 1 ML SYRINGE SUBCUT ONE (22:30)
[2016-11-17] MEDS ORDERED: CEFEPIME 2 GM/D5W RTU 2 GM/50 ML RTUPB IV ONE (22:30)
[2016-11-17] MEDS: 1/2 NORMAL SALINE 1,000 ML IV PRN (23:29)
[2016-11-18] MEDS: MAGNESIUM SULFATE/D5W 1 GM/100 ML RTUPB IV SCH ×2 (00:43→02:01)
[2016-11-18] MEDS ORDERED: CEFEPIME 2 GM/D5W RTU 2 GM/50 ML RTUPB IV ONE (01:05)
[2016-11-18 01:38] LABS: ANION GAP 7 (5-19); BLOOD UREA NITROGEN 12 mg/dL (7-20); CALCIUM 7.2 mg/dL (8.4-10.2); CARBON DIOXIDE 26 mmol/L (22-30); CHLORIDE 90 mmol/L (98-107); CREATININE RESULT 1.27 mg/dL (0.52-1.25); GLUCOSE 80 mg/dL (75-110); POTASSIUM 4.5 mmol/L (3.6-5.0); SODIUM 122.5 mmol/L (137-145)
[2016-11-18 05:41] LABS: ABSOLUTE BASOPHILS # (AUTO) 0.1 10^3/uL (0.0-0.2); ABSOLUTE EOSINOPHILS # (AUTO) 0.2 10^3/uL (0.0-0.6); ABSOLUTE MONOCYTES (AUTO) 1.1 10^3/uL (0.1-1.4); ABSOLUTE NEUT (AUTO) 11.6 10^3/uL (1.7-8.2); BASOPHILS % (AUTO) 0.7 % (0-2); EOSINOPHILS % (AUTO) 1.2 % (0-6); HEMATOCRIT 30.7 % (37.9-51.0); HEMOGLOBIN 10.4 g/dL (13.5-17.0); HGB HCT DIFFERENCE 0.5; LYMPHOCYTES % (AUTO) 7.1 % (13-45); MEAN CORPUSCULAR HEMOGLOBIN 32.8 pg (27.0-33.4); MEAN CORPUSCULAR HGB CONC 33.9 g/dL (32.0-36.0); MEAN CORPUSCULAR VOLUME 97 fl (80-97); MONOCYTES % (AUTO) 7.9 % (3-13); RED BLOOD COUNT 3.17 10^6/uL (4.35-5.55); RED CELL DISTRIBUTION WIDTH 13.3 % (11.5-14.0); SEGMENTED NEUTROPHILS % (AUTO) 83.1 % (42-78)
[2016-11-18 05:59] LABS: ALANINE AMINOTRANSFERASE 40 U/L (21-72); ALBUMIN 2.1 g/dL (3.5-5.0); ALKALINE PHOSPHATASE 187 U/L (38-126); ANION GAP 9 (5-19); ASPARTATE AMINO TRANSFERASE 55 U/L (17-59); BILIRUBIN,TOTAL 1.6 mg/dL (0.2-1.3); BLOOD UREA NITROGEN 12 mg/dL (7-20); CALCIUM 7.3 mg/dL (8.4-10.2); CARBON DIOXIDE 25 mmol/L (22-30); CHLORIDE 89 mmol/L (98-107); GLUCOSE 85 mg/dL (75-110); POTASSIUM 4.2 mmol/L (3.6-5.0); SODIUM 122.5 mmol/L (137-145); TOTAL PROTEIN 6.4 g/dL (6.3-8.2)
[2016-11-18] MEDS ORDERED: VANCOMYCIN HCL INJ 1000 MG VIAL ONE (06:13)
[2016-11-18] MEDS: 1/2 NORMAL SALINE 1,000 ML IV PRN (06:43)
[2016-11-18] MEDS ORDERED: VANCOMYCIN HCL 1,000 MG in DEXTROSE 5%-WATER 250 ML IV ONE (07:00)
[2016-11-18] MEDS ORDERED: VANCOMYCIN HCL INJ 1000 MG VIAL IV PRN (07:00)
--- NOTE | 2016-11-18 09:15 | EKG REPORT ---
SEVERITY:- ABNORMAL ECG - SINUS TACHYCARDIA LOW VOLTAGE THROUGHOUT BORDERLINE R WAVE PROGRESSION, ANTERIOR LEADS BORDERLINE T ABNORMALITIES, ANT-LAT LEADS : Confirmed by: James Franco 18-Nov-2016 09:14:35
[2016-11-18] MEDS: THIAMINE HCL 100 MG TABLET PO SCH (09:29)
[2016-11-18] MEDS: FOLIC ACID 1 MG TABLET PO SCH (09:29)
[2016-11-18] MEDS: MULTIVITAMIN TABLET PO SCH (09:29)
[2016-11-18] MEDS: NYSTATIN TOPICAL POWDER 15 GM TP SCH ×2 (09:31→17:45)
[2016-11-18] MEDS: HEPARIN SOD (PORCINE) 5,000 UNIT/ML 1 ML SYRINGE SUBCUT SCH ×2 (09:32→23:23)
[2016-11-18] MEDS ORDERED: CEFEPIME 2 GM/D5W RTU 2 GM/50 ML RTUPB IV SCH (10:00)
[2016-11-18] MEDS ORDERED: CEFEPIME HCL 2 GM in DEXTROSE 5%-WATER 50 ML IV ONE (10:00)
[2016-11-18] MEDS ORDERED: NORMAL SALINE 1000 ML 1,000 ML IV PRN (10:09)
[2016-11-18] MEDS ORDERED: OXYCODONE-ACETAMINOPHEN 5-325 MG TABLET PO PRN (10:10)
--- NOTE | 2016-11-18 10:22 | PDOC PROGRESS REPORT ---
Subjective Progress Note for:: 11/18/16 Subjective:: The patient denies diarrhea at this time. Denies any chills or fever nor any shortness of breath. Patient reports he feels much better. He lives alone and ambulates with a walker. For several days patient is unable to ambulate as he reported that his diet was poor for the past several days. Since discharge from the hospital he claims that he is still having diarrhea. No nausea or vomiting. Denies dysuria urgency or frequency. Physical Exam Vital Signs: Temp Pulse Resp BP Pulse Ox 97.3 F 99 16 101/64 96 11/18/16 09:24 11/18/16 09:24 11/18/16 09:24 11/18/16 09:24 11/18/16 09:24 Intake & Output 11/17/16 11/18/16 11/19/16 06:59 06:59 06:59 Output Total 775 720 Balance -775 -720 Weight 98.4 kg General appearance: PRESENT: no acute distress, cooperative Head exam: PRESENT: normocephalic Eye exam: PRESENT: EOMI Mouth exam: PRESENT: moist, neck supple Neck exam: ABSENT: JVD Respiratory exam: PRESENT: clear to auscultation pastora. ABSENT: rales, rhonchi, wheezes Cardiovascular exam: PRESENT: RRR. ABSENT: gallop GI/Abdominal exam: PRESENT: soft. ABSENT: distended, tenderness Extremities exam: PRESENT: +1 edema - Bilateral Neurological exam: PRESENT: alert, awake, oriented to situation Skin exam: PRESENT: dry, rash - On the lower abdomen as well as perineum. Patient has chronic venous stasis on both lower extremities right more than the left., skin tears - Left leg., warm, other - Foot ulcers bilateral that were healing.. ABSENT: cyanosis Results Laboratory Results: 11/18/16 05:29 11/18/16 05:29 11/18/16 11/18/16 11/18/16 01:20 05:29 05:29 WBC 14.0 H RBC 3.17 L Hgb 10.4 L Hct 30.7 L MCV 97 MCH 32.8 MCHC 33.9 RDW 13.3 Plt Count 190 Seg Neutrophils % 83.1 H Lymphocytes % 7.1 L Monocytes % 7.9 Eosinophils % 1.2 Basophils % 0.7 Absolute Neutrophils 11.6 H Absolute Lymphocytes 1.0 Absolute Monocytes 1.1 Absolute Eosinophils 0.2 Absolute Basophils 0.1 Sodium 122.5 L 122.5 L Potassium 4.5 4.2 Chloride 90 L 89 L Carbon Dioxide 26 25 Anion Gap 7 9 BUN 12 12 Creatinine 1.27 H 1.10 Est GFR ( Amer) > 60 > 60 Est GFR (Non-Af Amer) 56 L > 60 Glucose 80 85 Calcium 7.2 L 7.3 L Total Bilirubin 1.6 H AST 55 ALT 40 Alkaline Phosphatase 187 H Total Protein 6.4 Albumin 2.1 L Impressions: Chest X-Ray 11/17/16 14:45 IMPRESSION: Resolution of previously noted airspace opacity in the right infrahilar region/right lung base. No new focal opacities identified. Stable eventration of the right hemidiaphragm Abdomen/Pelvis CT 11/17/16 16:06 IMPRESSION: Perihepatic ascites. There is also fluid in the pelvis and in the right lower quadrant. The appendix is not visualized and therefore, appendicitis not completely excluded. There multiple small nodes in the retroperitoneum and in the mesentery which are most likely reactive. There is marked fatty infiltration of the liver. Assessment & Plan - Diagnosis (1) Cellulitis of abdominal wall Is this a current diagnosis for this admission?: Yes (2) Cellulitis of perineum Is this a current diagnosis for this admission?: Yes (3) Diarrhea Qualifiers: Diarrhea type: unspecified type Qualified Code(s): R19.7 - Diarrhea , unspecified Is this a current diagnosis for this admission?: Yes (4) Hyponatremia Is this a current diagnosis for this admission?: Yes (5) Hypotension Qualifiers: Hypotension type: unspecified hypotension type Qualified Code(s): I95.9 - Hypotension, unspecified Is this a current diagnosis for this admission?: Yes (6) Abnormal urinalysis Is this a current diagnosis for this admission?: Yes (7) Coagulopathy Is this a current diagnosis for this admission?: Yes (8) Anemia of chronic disease Is this a current diagnosis for this admission?: Yes (9) Ascites Qualifiers: Ascites type: other type Qualified Code(s): R18.8 - Other ascites Is this a current diagnosis for this admission?: Yes (10) Fatty infiltration of liver Is this a current diagnosis for this admission?: Yes (11) Alcohol abuse Is this a current diagnosis for this admission?: Yes - Time Time Spent with patient: 25-34 minutes - Plan Summary Plan Summary: We will continue the antibiotics and antifungal powder. We will discontinue half normal saline, and put the patient on normal saline hydration at a lower rate. We will begin diet. We will check a stool culture and add lactobacillus. Patient may have underlying chronic pancreatic insufficiency due to chronic alcohol abuse. I will put the patient on pancreatic supplements see if it will help his diarrhea. Continue supportive care and recheck electrolytes in the morning. Transfer to [facility].
[2016-11-18 10:36] LABS: LIPASE 25.7 U/L (23-300)
[2016-11-18 10:40] LABS: AMYLASE < 30 U/L (30-110)
--- NOTE | 2016-11-18 16:14 | PROGRESS NOTE E ---
Progress Note NAME: ROSANNE WILCOX : 1945 AGE: 71Y DATE: 11/18/2016 ROOM: 314 SUBJECTIVE: The patient is fairly stable in the intensive care unit. He denies any pains along the perineal and pubic areas. Still red along these sites and suggested placing Silvadene cream twice a day. OBJECTIVE: VITAL SIGNS: He is afebrile. DIAGNOSTIC DATA: His white count is slightly down to 14,000 from 15.7 yesterday. His electrolytes are slightly improved today with a sodium of 122.5 and chloride of 89 with a potassium normal at 4.2. PLAN: We will continue his IV antibiotics and local care with Silvadene cream. DICTATING PHYSICIAN: KELECHI BLAIR M.D. [id number] PHY#: [id number] ID: [id number] JOB#: [id number] ACCT: [id number] cc: >
[2016-11-18] MEDS: LIPASE/PROTEASE/AMYLASE 1 CAP CAPSULE.DR PO SCH ×3 (17:45)
[2016-11-18] MEDS: VANCOMYCIN HCL 1,250 MG in DEXTROSE 5%-WATER 250 ML IV SCH (17:45)
[2016-11-18] MEDS: SILVER SULFADIAZINE 1% CREAM 400 GM TP SCH (17:45)
[2016-11-18] MEDS ORDERED: SILVER SULFADIAZINE 1% CREAM 50 GM TP SCH (18:00)
[2016-11-18] MEDS: CEFEPIME 2 GM/D5W RTU 2 GM/50 ML RTUPB IV SCH (23:22)
[2016-11-19 05:29] LABS: ANION GAP 6 (5-19); BLOOD UREA NITROGEN 9 mg/dL (7-20); CALCIUM 7.5 mg/dL (8.4-10.2); CARBON DIOXIDE 27 mmol/L (22-30); CHLORIDE 95 mmol/L (98-107); CREATININE RESULT 0.84 mg/dL (0.52-1.25); GLUCOSE 74 mg/dL (75-110); MAGNESIUM 1.8 mg/dL (1.6-2.3); POTASSIUM 3.8 mmol/L (3.6-5.0); SODIUM 128.3 mmol/L (137-145)
[2016-11-19] MEDS: VANCOMYCIN HCL 1,250 MG in DEXTROSE 5%-WATER 250 ML IV SCH ×2 (05:53→17:09)
--- NOTE | 2016-11-19 07:49 | PROGRESS NOTE E ---
Progress Note NAME: ROSANNE WILCOX : 1945 AGE: 71Y DATE: ROOM: 314 SUBJECTIVE: His cellulitis of the lower abdomen and around the pubis appears to be significantly decreasing with Silvadene dressings. He thought he was going to be transferred to the [facility]. I would continue the Silvadene dressing for the next few days until his cellulitis healed. Continue with the IV antibiotics for the cellulitis. We will follow him on a p.r.n. basis. DICTATING PHYSICIAN: KELECHI BLAIR M.D. [id number] PHY#: [id number] ID: [id number] JOB#: [id number] ACCT: [id number] cc: >
[2016-11-19] MEDS: MULTIVITAMIN TABLET PO SCH (09:38)
[2016-11-19] MEDS: THIAMINE HCL 100 MG TABLET PO SCH (09:38)
[2016-11-19] MEDS: CEFEPIME 2 GM/D5W RTU 2 GM/50 ML RTUPB IV SCH ×2 (09:38→22:35)
[2016-11-19] MEDS: LIPASE/PROTEASE/AMYLASE 1 CAP CAPSULE.DR PO SCH ×6 (09:38→17:08)
[2016-11-19] MEDS: HEPARIN SOD (PORCINE) 5,000 UNIT/ML 1 ML SYRINGE SUBCUT SCH ×2 (09:38→22:34)
[2016-11-19] MEDS: FOLIC ACID 1 MG TABLET PO SCH (09:38)
[2016-11-19] MEDS: SILVER SULFADIAZINE 1% CREAM 400 GM TP SCH ×2 (09:39→17:09)
[2016-11-19] MEDS ORDERED: NORMAL SALINE 1000 ML 1,000 ML IV PRN (09:52)
--- NOTE | 2016-11-19 09:57 | PDOC PROGRESS REPORT ---
Subjective Progress Note for:: 11/19/16 Subjective:: Patient reports he is better. He still feels achy. Reports no diarrhea at this time. No nausea or vomiting. No shortness of breath chills or fever. Patient evaluated by surgical service and placed on Silvadene cream. Patient denies any PND orthopnea. No reported withdrawal symptoms. Had episode of low blood pressure last night however. Physical Exam Vital Signs: Temp Pulse Resp BP Pulse Ox 98.4 F 90 19 115/98 H 96 11/19/16 07:26 11/19/16 07:26 11/19/16 07:26 11/19/16 07:26 11/19/16 07:26 Intake & Output 11/18/16 11/19/16 11/20/16 06:59 06:59 06:59 Intake Total 250 Output Total 775 2670 Balance -775 -2420 Weight 98.4 kg 100.3 kg General appearance: PRESENT: no acute distress, cooperative Head exam: PRESENT: normocephalic Eye exam: PRESENT: EOMI Mouth exam: PRESENT: moist, neck supple Neck exam: ABSENT: JVD Respiratory exam: PRESENT: clear to auscultation pastora Cardiovascular exam: PRESENT: RRR. ABSENT: gallop GI/Abdominal exam: PRESENT: hyperactive bowel sounds, soft. ABSENT: distended Extremities exam: PRESENT: +1 edema Neurological exam: PRESENT: alert, awake, oriented to situation Skin exam: PRESENT: other - Wounds with Silvadene cream applied.. ABSENT: cyanosis Results Laboratory Results: 11/18/16 05:29 11/19/16 04:25 11/18/16 11/19/16 05:29 04:25 Sodium 128.3 L Potassium 3.8 Chloride 95 L Carbon Dioxide 27 Anion Gap 6 BUN 9 Creatinine 0.84 Est GFR ( Amer) > 60 Est GFR (Non-Af Amer) > 60 Glucose 74 L Calcium 7.5 L Magnesium 1.8 Amylase < 30 L Lipase 25.7 11/18/16 01:55 Sputum Gram Stain - Final Impressions: Chest X-Ray 11/17/16 14:45 IMPRESSION: Resolution of previously noted airspace opacity in the right infrahilar region/right lung base. No new focal opacities identified. Stable eventration of the right hemidiaphragm Abdomen/Pelvis CT 11/17/16 16:06 IMPRESSION: Perihepatic ascites. There is also fluid in the pelvis and in the right lower quadrant. The appendix is not visualized and therefore, appendicitis not completely excluded. There multiple small nodes in the retroperitoneum and in the mesentery which are most likely reactive. There is marked fatty infiltration of the liver. Assessment & Plan - Diagnosis (1) Cellulitis of abdominal wall Is this a current diagnosis for this admission?: Yes (2) Cellulitis of perineum Is this a current diagnosis for this admission?: Yes (3) Diarrhea Qualifiers: Diarrhea type: unspecified type Qualified Code(s): R19.7 - Diarrhea , unspecified Is this a current diagnosis for this admission?: Yes (4) Hyponatremia Is this a current diagnosis for this admission?: Yes (5) Hypotension Qualifiers: Hypotension type: unspecified hypotension type Qualified Code(s): I95.9 - Hypotension, unspecified Is this a current diagnosis for this admission?: Yes (6) Abnormal urinalysis Is this a current diagnosis for this admission?: Yes (7) Coagulopathy Is this a current diagnosis for this admission?: Yes (8) Anemia of chronic disease Is this a current diagnosis for this admission?: Yes (9) Ascites Qualifiers: Ascites type: other type Qualified Code(s): R18.8 - Other ascites Is this a current diagnosis for this admission?: Yes (10) Fatty infiltration of liver Is this a current diagnosis for this admission?: Yes (11) Alcohol abuse Is this a current diagnosis for this admission?: Yes - Time Time Spent with patient: 25-34 minutes - Plan Summary Plan Summary: Continue current antibiotics. Reportedly gram-positive cocci on culture. Patient already on vancomycin. In the meantime I am going to increase the patient's intravenous fluid. I will discontinue the Ativan. Continue to monitor. Continue supplements.
[2016-11-19] MEDS: NYSTATIN TOPICAL POWDER 15 GM TP SCH ×2 (14:00→17:09)
[2016-11-19 17:51] LABS: CREATININE RESULT 0.79 mg/dL (0.52-1.25)
[2016-11-20] MEDS: VANCOMYCIN HCL 1,250 MG in DEXTROSE 5%-WATER 250 ML IV SCH ×2 (05:48→17:05)
[2016-11-20] MEDS: LIPASE/PROTEASE/AMYLASE 1 CAP CAPSULE.DR PO SCH ×6 (07:55→17:00)
[2016-11-20] MEDS: MULTIVITAMIN TABLET PO SCH (09:31)
[2016-11-20] MEDS: FOLIC ACID 1 MG TABLET PO SCH (09:31)
[2016-11-20] MEDS: THIAMINE HCL 100 MG TABLET PO SCH (09:31)
[2016-11-20] MEDS: NYSTATIN TOPICAL POWDER 15 GM TP SCH ×2 (09:32→17:01)
[2016-11-20] MEDS: SILVER SULFADIAZINE 1% CREAM 400 GM TP SCH ×2 (09:32→17:01)
[2016-11-20] MEDS: HEPARIN SOD (PORCINE) 5,000 UNIT/ML 1 ML SYRINGE SUBCUT SCH ×2 (09:32→21:07)
[2016-11-20] MEDS: CEFEPIME 2 GM/D5W RTU 2 GM/50 ML RTUPB IV SCH ×2 (09:34→21:07)
--- NOTE | 2016-11-20 11:33 | PDOC PROGRESS REPORT ---
Subjective Progress Note for:: 11/20/16 Subjective:: Patient reports being nonambulatory for multiple years. He uses a walker just to transfer from bed to chair and to mobilize for a few steps. He denies any shortness of breath, nausea or vomiting or abdominal pain. Patient reports starting to develop diarrhea again. There is no chills or fever. Physical Exam Vital Signs: Temp Pulse Resp BP Pulse Ox 98.0 F 96 18 90/59 L 94 11/20/16 07:13 11/20/16 07:13 11/20/16 07:13 11/20/16 07:13 11/20/16 07:13 Intake & Output 11/19/16 11/20/16 11/21/16 06:59 06:59 06:59 Intake Total 250 2480 Output Total 2670 525 Balance -2420 1955 Weight 100.3 kg 100.5 kg General appearance: PRESENT: no acute distress, cooperative Head exam: PRESENT: normocephalic Eye exam: PRESENT: EOMI Mouth exam: PRESENT: moist, neck supple Neck exam: ABSENT: JVD Respiratory exam: PRESENT: clear to auscultation pastora. ABSENT: rhonchi, wheezes Cardiovascular exam: PRESENT: RRR. ABSENT: gallop GI/Abdominal exam: PRESENT: soft. ABSENT: distended, tenderness Extremities exam: PRESENT: +1 edema Neurological exam: PRESENT: alert, awake, oriented to situation Skin exam: PRESENT: dry, warm. ABSENT: cyanosis Results Laboratory Results: 11/18/16 05:29 11/19/16 17:10 11/19/16 17:10 Creatinine 0.79 Est GFR ( Amer) > 60 Est GFR (Non-Af Amer) > 60 11/18/16 01:55 Sputum Gram Stain - Final Impressions: Chest X-Ray 11/17/16 14:45 IMPRESSION: Resolution of previously noted airspace opacity in the right infrahilar region/right lung base. No new focal opacities identified. Stable eventration of the right hemidiaphragm Abdomen/Pelvis CT 11/17/16 16:06 IMPRESSION: Perihepatic ascites. There is also fluid in the pelvis and in the right lower quadrant. The appendix is not visualized and therefore, appendicitis not completely excluded. There multiple small nodes in the retroperitoneum and in the mesentery which are most likely reactive. There is marked fatty infiltration of the liver. Assessment & Plan - Diagnosis (1) Cellulitis of abdominal wall Is this a current diagnosis for this admission?: Yes (2) Cellulitis of perineum Is this a current diagnosis for this admission?: Yes (3) Diarrhea Qualifiers: Diarrhea type: unspecified type Qualified Code(s): R19.7 - Diarrhea , unspecified Is this a current diagnosis for this admission?: Yes (4) Hyponatremia Is this a current diagnosis for this admission?: Yes (5) Hypotension Qualifiers: Hypotension type: unspecified hypotension type Qualified Code(s): I95.9 - Hypotension, unspecified Is this a current diagnosis for this admission?: Yes (6) Abnormal urinalysis Is this a current diagnosis for this admission?: Yes (7) Coagulopathy Is this a current diagnosis for this admission?: Yes (8) Anemia of chronic disease Is this a current diagnosis for this admission?: Yes (9) Ascites Qualifiers: Ascites type: other type Qualified Code(s): R18.8 - Other ascites Is this a current diagnosis for this admission?: Yes (10) Fatty infiltration of liver Is this a current diagnosis for this admission?: Yes (11) Alcohol abuse Is this a current diagnosis for this admission?: Yes - Time Time Spent with patient: 25-34 minutes - Plan Summary Plan Summary: We are going to continue current antibiotics. We will add Diflucan. In the meantime begin physical therapy. Follow cultures. Decrease hydration. Continue supportive care.
[2016-11-20] MEDS ORDERED: NORMAL SALINE 1000 ML 1,000 ML IV PRN (11:34)
[2016-11-20] MEDS ORDERED: FLUCONAZOLE 100 MG TABLET PO ONE (12:00)
[2016-11-21 04:55] LABS: HEMATOCRIT 31.5 % (37.9-51.0); HEMOGLOBIN 10.5 g/dL (13.5-17.0); MEAN CORPUSCULAR HEMOGLOBIN 32.9 pg (27.0-33.4); MEAN CORPUSCULAR HGB CONC 33.2 g/dL (32.0-36.0); MEAN CORPUSCULAR VOLUME 99 fl (80-97); RED BLOOD COUNT 3.18 10^6/uL (4.35-5.55); RED CELL DISTRIBUTION WIDTH 13.4 % (11.5-14.0)
[2016-11-21 05:10] LABS: ANION GAP 8 (5-19); BLOOD UREA NITROGEN 9 mg/dL (7-20); CALCIUM 7.2 mg/dL (8.4-10.2); CARBON DIOXIDE 25 mmol/L (22-30); CHLORIDE 101 mmol/L (98-107); CREATININE RESULT 0.69 mg/dL (0.52-1.25); GLUCOSE 87 mg/dL (75-110); POTASSIUM 3.6 mmol/L (3.6-5.0); SODIUM 133.6 mmol/L (137-145)
[2016-11-21] MEDS: VANCOMYCIN HCL 1,250 MG in DEXTROSE 5%-WATER 250 ML IV SCH ×2 (05:29→17:24)
[2016-11-21] MEDS: LIPASE/PROTEASE/AMYLASE 1 CAP CAPSULE.DR PO SCH ×6 (07:48→17:25)
[2016-11-21] MEDS: MULTIVITAMIN TABLET PO SCH (09:43)
[2016-11-21] MEDS: THIAMINE HCL 100 MG TABLET PO SCH (09:43)
[2016-11-21] MEDS: FLUCONAZOLE 100 MG TABLET PO SCH (09:43)
[2016-11-21] MEDS: CEFEPIME 2 GM/D5W RTU 2 GM/50 ML RTUPB IV SCH (09:44)
[2016-11-21] MEDS: SILVER SULFADIAZINE 1% CREAM 400 GM TP SCH ×2 (09:45→17:25)
[2016-11-21] MEDS: FOLIC ACID 1 MG TABLET PO SCH (09:45)
[2016-11-21] MEDS: NYSTATIN TOPICAL POWDER 15 GM TP SCH ×2 (09:45→17:26)
[2016-11-21] MEDS: HEPARIN SOD (PORCINE) 5,000 UNIT/ML 1 ML SYRINGE SUBCUT SCH ×2 (09:46→21:00)
--- NOTE | 2016-11-21 11:09 | PDOC PROGRESS REPORT ---
Subjective Progress Note for:: 11/21/16 Subjective:: Patient feels unwell today than yesterday. Patient reportedly with some chest congestion with. No respiratory distress no temperature spikes. Patient reports small amounts of diarrhea again. No nausea or vomiting, chills or fever , chest pain. Patient felt a burning sensation around the perineum. Physical Exam Vital Signs: Temp Pulse Resp BP Pulse Ox 97.7 F 96 19 94/63 L 98 11/21/16 08:00 11/21/16 08:00 11/21/16 08:00 11/21/16 08:00 11/21/16 08:00 Intake & Output 11/20/16 11/21/16 11/22/16 06:59 06:59 06:59 Intake Total 2480 1856 Output Total 525 450 Balance 1955 1406 Weight 100.5 kg 102.8 kg General appearance: PRESENT: no acute distress Head exam: PRESENT: normocephalic Eye exam: PRESENT: EOMI Mouth exam: PRESENT: moist, neck supple Neck exam: ABSENT: JVD Respiratory exam: PRESENT: rhonchi - mild B/L. ABSENT: wheezes Cardiovascular exam: PRESENT: RRR. ABSENT: gallop GI/Abdominal exam: PRESENT: hyperactive bowel sounds, soft. ABSENT: tenderness Extremities exam: PRESENT: other - Trace lower extremity edema +1. Wounds were stable Neurological exam: PRESENT: alert, awake Skin exam: PRESENT: erythema - On the groin and perineum minimally improved, warm. ABSENT: cyanosis Results Laboratory Results: 11/21/16 04:20 11/21/16 04:20 11/21/16 11/21/16 04:20 04:20 WBC 9.0 RBC 3.18 L Hgb 10.5 L Hct 31.5 L MCV 99 H MCH 32.9 MCHC 33.2 RDW 13.4 Plt Count 146 L Sodium 133.6 L Potassium 3.6 Chloride 101 Carbon Dioxide 25 Anion Gap 8 BUN 9 Creatinine 0.69 Est GFR ( Amer) > 60 Est GFR (Non-Af Amer) > 60 Glucose 87 Calcium 7.2 L 11/18/16 01:55 Sputum Gram Stain - Final Impressions: Chest X-Ray 11/17/16 14:45 IMPRESSION: Resolution of previously noted airspace opacity in the right infrahilar region/right lung base. No new focal opacities identified. Stable eventration of the right hemidiaphragm Abdomen/Pelvis CT 11/17/16 16:06 IMPRESSION: Perihepatic ascites. There is also fluid in the pelvis and in the right lower quadrant. The appendix is not visualized and therefore, appendicitis not completely excluded. There multiple small nodes in the retroperitoneum and in the mesentery which are most likely reactive. There is marked fatty infiltration of the liver. Assessment & Plan - Diagnosis (1) Cellulitis of abdominal wall Is this a current diagnosis for this admission?: Yes (2) Cellulitis of perineum Is this a current diagnosis for this admission?: Yes (3) Diarrhea Qualifiers: Diarrhea type: unspecified type Qualified Code(s): R19.7 - Diarrhea , unspecified Is this a current diagnosis for this admission?: Yes (4) Hyponatremia Is this a current diagnosis for this admission?: Yes (5) Hypotension Qualifiers: Hypotension type: unspecified hypotension type Qualified Code(s): I95.9 - Hypotension, unspecified Is this a current diagnosis for this admission?: Yes (6) Abnormal urinalysis Is this a current diagnosis for this admission?: Yes (7) Coagulopathy Is this a current diagnosis for this admission?: Yes (8) Anemia of chronic disease Is this a current diagnosis for this admission?: Yes (9) Ascites Qualifiers: Ascites type: other type Qualified Code(s): R18.8 - Other ascites Is this a current diagnosis for this admission?: Yes (10) Fatty infiltration of liver Is this a current diagnosis for this admission?: Yes (11) Alcohol abuse Is this a current diagnosis for this admission?: Yes - Time Time Spent with patient: 25-34 minutes - Plan Summary Plan Summary: The patient has MRSA in the sputum as well as stenotrophomonas. We will begin Primaxin. Continue vancomycin. We are going to discontinue cefepime, and obtain a chest x-ray. In the meantime we will add lactobacillus. Continue other medication and supportive care.
[2016-11-21] MEDS ORDERED: IMIPENEM/CILASTATIN SODIUM INJ 500 MG VIAL IV SCH (11:15)
--- NOTE | 2016-11-21 11:43 | RADIOLOGY REPORT (SQ) ---
EXAM DESCRIPTION: CHEST SINGLE VIEW COMPLETED DATE/TIME: 11/21/2016 11:26 am REASON FOR STUDY: Congestion COMPARISON: 11/17/2016 EXAM PARAMETERS: NUMBER OF VIEWS: One view. TECHNIQUE: Single frontal radiographic view of the chest acquired. RADIATION DOSE: NA LIMITATIONS: None. FINDINGS: LUNGS AND PLEURA: Right effusion with fluid in the fissures. Mild compressive atelectasis at the right base. Left lung is clear. MEDIASTINUM AND HILAR STRUCTURES: No masses. Contour normal. HEART AND VASCULAR STRUCTURES: Heart normal in size. Normal vasculature. BONES: No acute findings. HARDWARE: None in the chest. OTHER: No other significant finding. IMPRESSION: Right effusion with fluid in the fissures. Basilar atelectasis. TECHNICAL DOCUMENTATION: JOB ID: [id number]
[2016-11-21] MEDS: IMIPENEM/CILASTATIN SODIUM 500 MG in NORMAL SALINE 100 ML IV SCH ×2 (14:48→21:00)
[2016-11-21] MEDS: LACTOBACILLUS ACIDOPHILUS 250 MG TAB PO SCH (17:25)
[2016-11-21] MEDS ORDERED: FUROSEMIDE INJ/PF 40 MG/4 ML SDV ONE (18:30)
[2016-11-21] MEDS ORDERED: FUROSEMIDE INJ/PF 40 MG/4 ML SDV IV ONE (18:45)
[2016-11-22] MEDS: IMIPENEM/CILASTATIN SODIUM 500 MG in NORMAL SALINE 100 ML IV SCH ×2 (02:50→09:30)
[2016-11-22] MEDS: VANCOMYCIN HCL 1,250 MG in DEXTROSE 5%-WATER 250 ML IV SCH (05:16)
[2016-11-22] MEDS: FLUCONAZOLE 100 MG TABLET PO SCH (09:31)
[2016-11-22] MEDS: LIPASE/PROTEASE/AMYLASE 1 CAP CAPSULE.DR PO SCH ×6 (09:31→17:14)
[2016-11-22] MEDS: THIAMINE HCL 100 MG TABLET PO SCH (09:31)
[2016-11-22] MEDS: MULTIVITAMIN TABLET PO SCH (09:31)
[2016-11-22] MEDS: HEPARIN SOD (PORCINE) 5,000 UNIT/ML 1 ML SYRINGE SUBCUT SCH ×2 (09:31→21:23)
[2016-11-22] MEDS: LACTOBACILLUS ACIDOPHILUS 250 MG TAB PO SCH ×2 (09:31→17:14)
[2016-11-22] MEDS: FOLIC ACID 1 MG TABLET PO SCH (09:31)
[2016-11-22] MEDS: NYSTATIN TOPICAL POWDER 15 GM TP SCH ×2 (09:32→17:14)
[2016-11-22] MEDS: SILVER SULFADIAZINE 1% CREAM 400 GM TP SCH ×2 (09:32→17:14)
--- NOTE | 2016-11-22 15:15 | PDOC PROGRESS REPORT ---
Subjective Progress Note for:: 11/22/16 Subjective:: Patient denies patient denies diarrhea at this time. Denies abdominal pain nausea or vomiting. No reported respiratory distress chills or fever. Denies having any shortness of breath. He does occasionally cough. Physical Exam Vital Signs: Temp Pulse Resp BP Pulse Ox 98.0 F 93 18 104/66 98 11/22/16 06:55 11/22/16 14:00 11/22/16 06:55 11/22/16 06:55 11/22/16 06:55 Intake & Output 11/21/16 11/22/16 11/23/16 06:59 06:59 06:59 Intake Total 1856 1515 Output Total 450 1750 Balance 1406 -235 Weight 102.8 kg 100.3 kg General appearance: PRESENT: no acute distress, cooperative Head exam: PRESENT: normocephalic Eye exam: PRESENT: EOMI Mouth exam: PRESENT: moist, neck supple Neck exam: ABSENT: JVD Respiratory exam: PRESENT: rhonchi - Bilateral , scattered, unlabored. ABSENT: wheezes Cardiovascular exam: PRESENT: RRR. ABSENT: gallop GI/Abdominal exam: PRESENT: soft, other - Slight tympany to percussion. ABSENT : tenderness Extremities exam: PRESENT: +1 edema - Bilateral, foot ulcers stable Neurological exam: PRESENT: alert, awake Skin exam: PRESENT: dry, warm, other - Abdominal wall skin redness better. Redness of the groin slightly improved but still significant.. ABSENT: cyanosis Results Laboratory Results: 11/21/16 04:20 11/21/16 04:20 11/18/16 01:55 Sputum Gram Stain - Final 11/18/16 01:55 Sputum Sputum Culture - Final Stenotrophomonas Maltophilia#2 Mrsa (Meth Resis Staph Aureus) C.albicans/C.dubliniensis Greatly Reduced Normal Barbra Impressions: Abdomen/Pelvis CT 11/17/16 16:06 IMPRESSION: Perihepatic ascites. There is also fluid in the pelvis and in the right lower quadrant. The appendix is not visualized and therefore, appendicitis not completely excluded. There multiple small nodes in the retroperitoneum and in the mesentery which are most likely reactive. There is marked fatty infiltration of the liver. Chest X-Ray 11/21/16 00:00 IMPRESSION: Right effusion with fluid in the fissures. Basilar atelectasis. Assessment & Plan - Diagnosis (1) Cellulitis of abdominal wall Is this a current diagnosis for this admission?: Yes (2) Cellulitis of perineum Is this a current diagnosis for this admission?: Yes (3) Aspiration into airway Is this a current diagnosis for this admission?: Yes (4) Diarrhea Qualifiers: Diarrhea type: unspecified type Qualified Code(s): R19.7 - Diarrhea , unspecified Is this a current diagnosis for this admission?: Yes (5) Hyponatremia Is this a current diagnosis for this admission?: Yes (6) Hypotension Qualifiers: Hypotension type: unspecified hypotension type Qualified Code(s): I95.9 - Hypotension, unspecified Is this a current diagnosis for this admission?: Yes (7) Abnormal urinalysis Is this a current diagnosis for this admission?: Yes (8) Coagulopathy Is this a current diagnosis for this admission?: Yes (9) Anemia of chronic disease Is this a current diagnosis for this admission?: Yes (10) Ascites Qualifiers: Ascites type: other type Qualified Code(s): R18.8 - Other ascites Is this a current diagnosis for this admission?: Yes (11) Fatty infiltration of liver Is this a current diagnosis for this admission?: Yes (12) Alcohol abuse Is this a current diagnosis for this admission?: Yes - Time Time Spent with patient: 25-34 minutes - Plan Summary Plan Summary: Cultures came back sensitive to Bactrim. We will discontinue intravenous antibiotics and put the patient on oral Bactrim. In the meantime we will consult cyber policy and strategy planner for long-term care or transfer to the [facility] as patient prefers. I will continue the Silvadene cream begin Lotrisone lotion to see if it will help. Continue physical therapy. Continue supportive care.
[2016-11-22] MEDS: SULFAMETHOXAZOLE/TRIMETHOPRIM 800-160 MG TABLET PO SCH (17:14)
[2016-11-22] MEDS: CLOTRIMAZOLE/BETAMETHASONE DIP CREAM 15 GM TOP SCH (17:14)
[2016-11-22] MEDS: NORMAL SALINE 1000 ML 1,000 ML IV PRN (19:56)
[2016-11-23] MEDS: SULFAMETHOXAZOLE/TRIMETHOPRIM 800-160 MG TABLET PO SCH ×2 (05:22→17:10)
[2016-11-23] MEDS: LIPASE/PROTEASE/AMYLASE 1 CAP CAPSULE.DR PO SCH ×6 (08:03→15:40)
[2016-11-23] MEDS: THIAMINE HCL 100 MG TABLET PO SCH (09:28)
[2016-11-23] MEDS: MULTIVITAMIN TABLET PO SCH (09:28)
[2016-11-23] MEDS: HEPARIN SOD (PORCINE) 5,000 UNIT/ML 1 ML SYRINGE SUBCUT SCH ×2 (09:28→21:05)
[2016-11-23] MEDS: LACTOBACILLUS ACIDOPHILUS 250 MG TAB PO SCH ×2 (09:29→17:09)
[2016-11-23] MEDS: CLOTRIMAZOLE/BETAMETHASONE DIP CREAM 15 GM TOP SCH ×2 (09:33→17:10)
[2016-11-23] MEDS: FOLIC ACID 1 MG TABLET PO SCH (09:33)
[2016-11-23] MEDS: FLUCONAZOLE 100 MG TABLET PO SCH (09:33)
[2016-11-23] MEDS: NYSTATIN TOPICAL POWDER 15 GM TP SCH ×2 (09:35→17:10)
[2016-11-23] MEDS: SILVER SULFADIAZINE 1% CREAM 400 GM TP SCH ×2 (14:08→17:10)
--- NOTE | 2016-11-23 17:23 | PDOC PROGRESS REPORT ---
Subjective Progress Note for:: 11/23/16 Subjective:: Patient denies any complaints but nursing reports he has had some diarrhea. Physical Exam Vital Signs: Temp Pulse Resp BP Pulse Ox 97.7 F 88 20 110/49 L 96 11/23/16 11:17 11/23/16 14:00 11/23/16 11:17 11/23/16 11:17 11/23/16 11:17 Intake & Output 11/22/16 11/23/16 11/24/16 06:59 06:59 06:59 Intake Total 1515 460 Output Total 1750 1125 Balance -235 -665 Weight 100.3 kg 99.3 kg General appearance: PRESENT: no acute distress Eye exam: PRESENT: conjunctiva pink. ABSENT: scleral icterus Mouth exam: PRESENT: moist, tongue midline Neck exam: ABSENT: JVD Respiratory exam: PRESENT: clear to auscultation pastora. ABSENT: rales, rhonchi, wheezes Cardiovascular exam: PRESENT: RRR. ABSENT: diastolic murmur, rubs, systolic murmur GI/Abdominal exam: PRESENT: normal bowel sounds, soft. ABSENT: distended, guarding, mass, organolmegaly, rebound, tenderness Extremities exam: ABSENT: calf tenderness, clubbing, pedal edema Neurological exam: PRESENT: alert, awake, oriented to person, oriented to place , oriented to time, oriented to situation, CN II-XII grossly intact. ABSENT: motor sensory deficit Psychiatric exam: PRESENT: appropriate affect Skin exam: PRESENT: dry, intact, warm. ABSENT: cyanosis, rash Results Laboratory Results: 11/21/16 04:20 11/21/16 04:20 Impressions: Abdomen/Pelvis CT 11/17/16 16:06 IMPRESSION: Perihepatic ascites. There is also fluid in the pelvis and in the right lower quadrant. The appendix is not visualized and therefore, appendicitis not completely excluded. There multiple small nodes in the retroperitoneum and in the mesentery which are most likely reactive. There is marked fatty infiltration of the liver. Chest X-Ray 11/21/16 00:00 IMPRESSION: Right effusion with fluid in the fissures. Basilar atelectasis. Assessment & Plan - Diagnosis (1) Cellulitis of abdominal wall Is this a current diagnosis for this admission?: YesPlan: Patient has cultures that are growing out MRSA, staph capitis, stenotrophomonas. Has been switched over to oral Bactrim and all 3 organisms are sensitive to that. (2) Cellulitis of perineum Is this a current diagnosis for this admission?: YesPlan: Continue with Bactrim as per above (3) Hypotension Qualifiers: Hypotension type: unspecified hypotension type Qualified Code(s): I95.9 - Hypotension, unspecified Is this a current diagnosis for this admission?: YesPlan: Resolved. (4) Anemia of chronic disease Is this a current diagnosis for this admission?: Yes (5) Ascites Qualifiers: Ascites type: other type Qualified Code(s): R18.8 - Other ascites Is this a current diagnosis for this admission?: Yes (6) Aspiration into airway Is this a current diagnosis for this admission?: YesPlan: Continue with Bactrim. Patient has refused any type of swallowing studies. (7) Coagulopathy Is this a current diagnosis for this admission?: YesPlan: Patient has coagulopathy most likely secondary to his chronic alcohol use (8) Diarrhea Qualifiers: Diarrhea type: unspecified type Qualified Code(s): R19.7 - Diarrhea , unspecified Is this a current diagnosis for this admission?: Yes (9) Fatty infiltration of liver Is this a current diagnosis for this admission?: Yes (10) Hyponatremia Is this a current diagnosis for this admission?: YesPlan: Improving. (11) Alcohol abuse Is this a current diagnosis for this admission?: YesPlan: No evidence for delirium tremens. - Time Time Spent with patient: 25-34 minutes - Plan Summary Plan Summary: I have recommended to the patient that he go to rehab for strengthening. He appears to be competent and demands that he will not go to rehab at this time. Will discuss further with him tomorrow
[2016-11-24 05:03] LABS: ABSOLUTE BASOPHILS # (AUTO) 0.1 10^3/uL (0.0-0.2); ABSOLUTE EOSINOPHILS # (AUTO) 0.2 10^3/uL (0.0-0.6); ABSOLUTE LYMPHOCYTES (AUTO) 1.5 10^3/uL (0.5-4.7); ABSOLUTE MONOCYTES (AUTO) 0.9 10^3/uL (0.1-1.4); ABSOLUTE NEUT (AUTO) 6.2 10^3/uL (1.7-8.2); BASOPHILS % (AUTO) 0.8 % (0-2); EOSINOPHILS % (AUTO) 1.9 % (0-6); HEMOGLOBIN 10.4 g/dL (13.5-17.0); HGB HCT DIFFERENCE 0.2; LYMPHOCYTES % (AUTO) 16.7 % (13-45); MEAN CORPUSCULAR HEMOGLOBIN 32.9 pg (27.0-33.4); MEAN CORPUSCULAR HGB CONC 33.7 g/dL (32.0-36.0); MEAN CORPUSCULAR VOLUME 98 fl (80-97); MONOCYTES % (AUTO) 10.1 % (3-13); RED BLOOD COUNT 3.17 10^6/uL (4.35-5.55); RED CELL DISTRIBUTION WIDTH 13.9 % (11.5-14.0); SEGMENTED NEUTROPHILS % (AUTO) 70.5 % (42-78); WHITE BLOOD COUNT 8.7 10^3/uL (4.0-10.5)
[2016-11-24] MEDS: SULFAMETHOXAZOLE/TRIMETHOPRIM 800-160 MG TABLET PO SCH ×2 (05:04→17:04)
[2016-11-24 05:33] LABS: ANION GAP 6 (5-19); BLOOD UREA NITROGEN 14 mg/dL (7-20); CALCIUM 7.4 mg/dL (8.4-10.2); CARBON DIOXIDE 26 mmol/L (22-30); CHLORIDE 105 mmol/L (98-107); CREATININE RESULT 0.97 mg/dL (0.52-1.25); GLUCOSE 84 mg/dL (75-110); POTASSIUM 3.4 mmol/L (3.6-5.0)
[2016-11-24] MEDS: SILVER SULFADIAZINE 1% CREAM 400 GM TP SCH ×2 (09:58→17:04)
[2016-11-24] MEDS: HEPARIN SOD (PORCINE) 5,000 UNIT/ML 1 ML SYRINGE SUBCUT SCH ×2 (09:58→21:44)
[2016-11-24] MEDS: FLUCONAZOLE 100 MG TABLET PO SCH (09:58)
[2016-11-24] MEDS: LIPASE/PROTEASE/AMYLASE 1 CAP CAPSULE.DR PO SCH ×6 (09:58→16:58)
[2016-11-24] MEDS: CLOTRIMAZOLE/BETAMETHASONE DIP CREAM 15 GM TOP SCH ×2 (09:58→17:04)
[2016-11-24] MEDS: NYSTATIN TOPICAL POWDER 15 GM TP SCH ×2 (09:58→17:04)
[2016-11-24] MEDS: THIAMINE HCL 100 MG TABLET PO SCH (09:58)
[2016-11-24] MEDS: MULTIVITAMIN TABLET PO SCH (09:58)
[2016-11-24] MEDS: FOLIC ACID 1 MG TABLET PO SCH (09:58)
[2016-11-24] MEDS: LACTOBACILLUS ACIDOPHILUS 250 MG TAB PO SCH ×2 (09:58→17:04)
[2016-11-24] MEDS: NORMAL SALINE 1000 ML 1,000 ML IV PRN (13:10)
--- NOTE | 2016-11-24 16:58 | PDOC PROGRESS REPORT ---
Subjective Progress Note for:: 11/24/16 Subjective:: Patient denies any complaints Physical Exam Vital Signs: Temp Pulse Resp BP Pulse Ox 97.9 F 98 16 110/60 98 11/24/16 12:00 11/24/16 14:00 11/24/16 12:00 11/24/16 12:00 11/24/16 12:00 Intake & Output 11/23/16 11/24/16 11/25/16 06:59 06:59 06:59 Intake Total 460 675 Output Total 1125 625 Balance -665 50 Weight 99.3 kg 100.3 kg General appearance: PRESENT: no acute distress Eye exam: PRESENT: conjunctiva pink. ABSENT: scleral icterus Ear exam: PRESENT: normal external ear exam Mouth exam: PRESENT: moist, tongue midline Neck exam: ABSENT: JVD Respiratory exam: PRESENT: clear to auscultation pastora. ABSENT: rales, rhonchi, wheezes Cardiovascular exam: PRESENT: RRR. ABSENT: diastolic murmur, rubs, systolic murmur GI/Abdominal exam: PRESENT: normal bowel sounds, soft. ABSENT: distended, guarding, mass, organolmegaly, rebound, tenderness Extremities exam: ABSENT: calf tenderness, clubbing, pedal edema Neurological exam: PRESENT: alert, awake, oriented to person, oriented to place , oriented to time, oriented to situation, CN II-XII grossly intact. ABSENT: motor sensory deficit Psychiatric exam: PRESENT: appropriate affect Skin exam: PRESENT: other - Erythema of the lower abdomen and perineum. Results Laboratory Results: 11/24/16 04:35 11/24/16 04:35 11/24/16 11/24/16 04:35 04:35 WBC 8.7 RBC 3.17 L Hgb 10.4 L Hct 31.0 L MCV 98 H MCH 32.9 MCHC 33.7 RDW 13.9 Plt Count 174 Seg Neutrophils % 70.5 Lymphocytes % 16.7 Monocytes % 10.1 Eosinophils % 1.9 Basophils % 0.8 Absolute Neutrophils 6.2 Absolute Lymphocytes 1.5 Absolute Monocytes 0.9 Absolute Eosinophils 0.2 Absolute Basophils 0.1 Sodium 137.0 Potassium 3.4 L Chloride 105 Carbon Dioxide 26 Anion Gap 6 BUN 14 Creatinine 0.97 Est GFR ( Amer) > 60 Est GFR (Non-Af Amer) > 60 Glucose 84 Calcium 7.4 L Impressions: Abdomen/Pelvis CT 11/17/16 16:06 IMPRESSION: Perihepatic ascites. There is also fluid in the pelvis and in the right lower quadrant. The appendix is not visualized and therefore, appendicitis not completely excluded. There multiple small nodes in the retroperitoneum and in the mesentery which are most likely reactive. There is marked fatty infiltration of the liver. Chest X-Ray 11/21/16 00:00 IMPRESSION: Right effusion with fluid in the fissures. Basilar atelectasis. Assessment & Plan - Diagnosis (1) Cellulitis of abdominal wall Is this a current diagnosis for this admission?: YesPlan: Patient has cultures that are growing out MRSA, staph capitis, stenotrophomonas. Has been switched over to oral Bactrim and all 3 organisms are sensitive to that. (2) Cellulitis of perineum Is this a current diagnosis for this admission?: YesPlan: Continue with Bactrim as per above (3) Hypotension Qualifiers: Hypotension type: unspecified hypotension type Qualified Code(s): I95.9 - Hypotension, unspecified Is this a current diagnosis for this admission?: YesPlan: Resolved. (4) Anemia of chronic disease Is this a current diagnosis for this admission?: Yes (5) Ascites Qualifiers: Ascites type: other type Qualified Code(s): R18.8 - Other ascites Is this a current diagnosis for this admission?: Yes (6) Aspiration into airway Is this a current diagnosis for this admission?: YesPlan: Continue with Bactrim. Patient has refused any type of swallowing studies. (7) Coagulopathy Is this a current diagnosis for this admission?: YesPlan: Patient has coagulopathy most likely secondary to his chronic alcohol use (8) Diarrhea Qualifiers: Diarrhea type: unspecified type Qualified Code(s): R19.7 - Diarrhea , unspecified Is this a current diagnosis for this admission?: Yes (9) Fatty infiltration of liver Is this a current diagnosis for this admission?: Yes (10) Hyponatremia Is this a current diagnosis for this admission?: YesPlan: Improving. (11) Alcohol abuse Is this a current diagnosis for this admission?: YesPlan: No evidence for delirium tremens. - Time Time Spent with patient: 25-34 minutes - Inpatient Certification Medical Necessity: Need Close Monitoring Due to Risk of Patient Decompensation
[2016-11-25] MEDS: SULFAMETHOXAZOLE/TRIMETHOPRIM 800-160 MG TABLET PO SCH ×2 (05:14→17:42)
[2016-11-25] MEDS: HEPARIN SOD (PORCINE) 5,000 UNIT/ML 1 ML SYRINGE SUBCUT SCH ×2 (10:50→21:32)
[2016-11-25] MEDS: FLUCONAZOLE 100 MG TABLET PO SCH (10:52)
[2016-11-25] MEDS: MULTIVITAMIN TABLET PO SCH (10:52)
[2016-11-25] MEDS: LIPASE/PROTEASE/AMYLASE 1 CAP CAPSULE.DR PO SCH ×6 (10:53→17:42)
[2016-11-25] MEDS: LACTOBACILLUS ACIDOPHILUS 250 MG TAB PO SCH ×2 (10:53→17:42)
[2016-11-25] MEDS: THIAMINE HCL 100 MG TABLET PO SCH (10:53)
[2016-11-25] MEDS: FOLIC ACID 1 MG TABLET PO SCH (10:53)
[2016-11-25] MEDS: CLOTRIMAZOLE/BETAMETHASONE DIP CREAM 15 GM TOP SCH ×2 (11:49→17:55)
[2016-11-25] MEDS: NYSTATIN TOPICAL POWDER 15 GM TP SCH ×2 (11:49→17:55)
[2016-11-25] MEDS: SILVER SULFADIAZINE 1% CREAM 400 GM TP SCH ×2 (11:49→17:55)
--- NOTE | 2016-11-25 12:21 | PDOC PROGRESS REPORT ---
Subjective Progress Note for:: 11/25/16 Subjective:: Patient denies any complaints. he is somewhat confused today. Physical Exam Vital Signs: Temp Pulse Resp BP Pulse Ox 98.0 F 87 18 104/59 L 94 11/25/16 00:09 11/25/16 07:00 11/25/16 00:09 11/25/16 00:09 11/25/16 00:09 Intake & Output 11/24/16 11/25/16 11/26/16 06:59 06:59 06:59 Intake Total 675 1100 Output Total 625 800 Balance 50 300 Weight 100.3 kg 97.4 kg General appearance: PRESENT: no acute distress Eye exam: PRESENT: conjunctiva pink. ABSENT: scleral icterus Mouth exam: PRESENT: moist, tongue midline Neck exam: ABSENT: JVD Respiratory exam: PRESENT: clear to auscultation pastora. ABSENT: rales, rhonchi, wheezes Cardiovascular exam: PRESENT: RRR. ABSENT: diastolic murmur, rubs, systolic murmur GI/Abdominal exam: PRESENT: normal bowel sounds, soft. ABSENT: distended, guarding, mass, organolmegaly, rebound, tenderness Extremities exam: ABSENT: calf tenderness, clubbing, pedal edema Neurological exam: PRESENT: awake, oriented to person, oriented to place. ABSENT: oriented to time, oriented to situation Psychiatric exam: PRESENT: flat affect Skin exam: PRESENT: other - Erythematous rash on the lower abdomen and perineum. Results Laboratory Results: 11/24/16 04:35 11/24/16 04:35 Impressions: Abdomen/Pelvis CT 11/17/16 16:06 IMPRESSION: Perihepatic ascites. There is also fluid in the pelvis and in the right lower quadrant. The appendix is not visualized and therefore, appendicitis not completely excluded. There multiple small nodes in the retroperitoneum and in the mesentery which are most likely reactive. There is marked fatty infiltration of the liver. Chest X-Ray 11/21/16 00:00 IMPRESSION: Right effusion with fluid in the fissures. Basilar atelectasis. Assessment & Plan - Diagnosis (1) Cellulitis of abdominal wall Is this a current diagnosis for this admission?: YesPlan: Patient has cultures that are growing out MRSA, staph capitis, stenotrophomonas. Has been switched over to oral Bactrim and all 3 organisms are sensitive to that. (2) Cellulitis of perineum Is this a current diagnosis for this admission?: YesPlan: Continue with Bactrim as per above (3) Hypotension Qualifiers: Hypotension type: unspecified hypotension type Qualified Code(s): I95.9 - Hypotension, unspecified Is this a current diagnosis for this admission?: YesPlan: Resolved. (4) Anemia of chronic disease Is this a current diagnosis for this admission?: Yes (5) Ascites Qualifiers: Ascites type: other type Qualified Code(s): R18.8 - Other ascites Is this a current diagnosis for this admission?: Yes (6) Aspiration into airway Is this a current diagnosis for this admission?: YesPlan: Continue with Bactrim. Patient has refused any type of swallowing studies. (7) Coagulopathy Is this a current diagnosis for this admission?: YesPlan: Patient has coagulopathy most likely secondary to his chronic alcohol use (8) Diarrhea Qualifiers: Diarrhea type: unspecified type Qualified Code(s): R19.7 - Diarrhea , unspecified Is this a current diagnosis for this admission?: Yes (9) Fatty infiltration of liver Is this a current diagnosis for this admission?: Yes (10) Hyponatremia Is this a current diagnosis for this admission?: YesPlan: Improving. (11) Alcohol abuse Is this a current diagnosis for this admission?: YesPlan: No evidence for delirium tremens. Somewhat confused today. I am concerned about whether this patient is really competent to make decisions. Will ask psychiatry to evaluate for their opinion in regards to whether or not he is competent. - Time Time Spent with patient: 25-34 minutes
[2016-11-26 05:03] LABS: ABSOLUTE BASOPHILS # (AUTO) 0.1 10^3/uL (0.0-0.2); ABSOLUTE EOSINOPHILS # (AUTO) 0.1 10^3/uL (0.0-0.6); ABSOLUTE LYMPHOCYTES (AUTO) 1.6 10^3/uL (0.5-4.7); ABSOLUTE MONOCYTES (AUTO) 0.8 10^3/uL (0.1-1.4); ABSOLUTE NEUT (AUTO) 4.4 10^3/uL (1.7-8.2); BASOPHILS % (AUTO) 0.8 % (0-2); HEMATOCRIT 31.1 % (37.9-51.0); HEMOGLOBIN 10.5 g/dL (13.5-17.0); HGB HCT DIFFERENCE 0.4; LYMPHOCYTES % (AUTO) 23.3 % (13-45); MEAN CORPUSCULAR HEMOGLOBIN 33.1 pg (27.0-33.4); MEAN CORPUSCULAR HGB CONC 33.9 g/dL (32.0-36.0); MEAN CORPUSCULAR VOLUME 98 fl (80-97); MONOCYTES % (AUTO) 10.8 % (3-13); RED BLOOD COUNT 3.18 10^6/uL (4.35-5.55); RED CELL DISTRIBUTION WIDTH 14.2 % (11.5-14.0); SEGMENTED NEUTROPHILS % (AUTO) 63.1 % (42-78)
[2016-11-26 05:25] LABS: BLOOD UREA NITROGEN 15 mg/dL (7-20); CALCIUM 7.5 mg/dL (8.4-10.2); CARBON DIOXIDE 28 mmol/L (22-30); CHLORIDE 108 mmol/L (98-107); CREATININE RESULT 1.16 mg/dL (0.52-1.25); GLUCOSE 81 mg/dL (75-110); POTASSIUM 3.5 mmol/L (3.6-5.0); SODIUM 140.2 mmol/L (137-145)
[2016-11-26 05:27] LABS: ANION GAP 4 (5-19)
[2016-11-26] MEDS: SULFAMETHOXAZOLE/TRIMETHOPRIM 800-160 MG TABLET PO SCH ×2 (05:51→17:11)
[2016-11-26] MEDS: HEPARIN SOD (PORCINE) 5,000 UNIT/ML 1 ML SYRINGE SUBCUT SCH ×2 (09:37→21:17)
[2016-11-26] MEDS: FOLIC ACID 1 MG TABLET PO SCH (09:37)
[2016-11-26] MEDS: LACTOBACILLUS ACIDOPHILUS 250 MG TAB PO SCH ×2 (09:38→17:11)
[2016-11-26] MEDS: MULTIVITAMIN TABLET PO SCH (09:38)
[2016-11-26] MEDS: FLUCONAZOLE 100 MG TABLET PO SCH (09:38)
[2016-11-26] MEDS: THIAMINE HCL 100 MG TABLET PO SCH (09:38)
[2016-11-26] MEDS: NYSTATIN TOPICAL POWDER 15 GM TP SCH ×2 (09:38→17:11)
[2016-11-26] MEDS: LIPASE/PROTEASE/AMYLASE 1 CAP CAPSULE.DR PO SCH ×6 (09:38→15:42)
[2016-11-26] MEDS: SILVER SULFADIAZINE 1% CREAM 400 GM TP SCH ×2 (09:39→17:11)
[2016-11-26] MEDS: CLOTRIMAZOLE/BETAMETHASONE DIP CREAM 15 GM TOP SCH ×2 (09:46→17:11)
[2016-11-26] MEDS: NORMAL SALINE 1000 ML 1,000 ML IV PRN (11:22)
--- NOTE | 2016-11-26 17:39 | PDOC PROGRESS REPORT ---
Subjective Progress Note for:: 11/26/16 Subjective:: Patient denies any complaints. he is less confused today. Physical Exam Vital Signs: Temp Pulse Resp BP Pulse Ox 98.1 F 80 20 112/83 95 11/26/16 12:23 11/26/16 14:00 11/26/16 12:23 11/26/16 12:23 11/26/16 12:23 Intake & Output 11/25/16 11/26/16 11/27/16 06:59 06:59 06:59 Intake Total 1100 1290 222 Output Total 800 450 100 Balance 300 840 122 Weight 97.4 kg 98.4 kg General appearance: PRESENT: no acute distress Eye exam: PRESENT: conjunctiva pink. ABSENT: scleral icterus Ear exam: PRESENT: normal external ear exam Mouth exam: PRESENT: moist, tongue midline Neck exam: ABSENT: JVD Respiratory exam: PRESENT: clear to auscultation pastora. ABSENT: rales, rhonchi, wheezes Cardiovascular exam: PRESENT: RRR. ABSENT: diastolic murmur, rubs, systolic murmur GI/Abdominal exam: PRESENT: normal bowel sounds, soft. ABSENT: distended, guarding, mass, organolmegaly, rebound, tenderness Extremities exam: ABSENT: calf tenderness, clubbing, pedal edema Neurological exam: PRESENT: alert, awake, oriented to person, oriented to place , oriented to time. ABSENT: oriented to situation Psychiatric exam: PRESENT: appropriate affect, normal mood. ABSENT: homicidal ideation, suicidal ideation Skin exam: PRESENT: dry, intact, warm. ABSENT: cyanosis, rash Results Laboratory Results: 11/26/16 04:31 11/26/16 04:31 11/26/16 11/26/16 04:31 04:31 WBC 7.0 RBC 3.18 L Hgb 10.5 L Hct 31.1 L MCV 98 H MCH 33.1 MCHC 33.9 RDW 14.2 H Plt Count 176 Seg Neutrophils % 63.1 Lymphocytes % 23.3 Monocytes % 10.8 Eosinophils % 2.0 Basophils % 0.8 Absolute Neutrophils 4.4 Absolute Lymphocytes 1.6 Absolute Monocytes 0.8 Absolute Eosinophils 0.1 Absolute Basophils 0.1 Sodium 140.2 Potassium 3.5 L Chloride 108 H Carbon Dioxide 28 Anion Gap 4 L BUN 15 Creatinine 1.16 Est GFR ( Amer) > 60 Est GFR (Non-Af Amer) > 60 Glucose 81 Calcium 7.5 L Impressions: Abdomen/Pelvis CT 11/17/16 16:06 IMPRESSION: Perihepatic ascites. There is also fluid in the pelvis and in the right lower quadrant. The appendix is not visualized and therefore, appendicitis not completely excluded. There multiple small nodes in the retroperitoneum and in the mesentery which are most likely reactive. There is marked fatty infiltration of the liver. Chest X-Ray 11/21/16 00:00 IMPRESSION: Right effusion with fluid in the fissures. Basilar atelectasis. Assessment & Plan - Diagnosis (1) Cellulitis of abdominal wall Is this a current diagnosis for this admission?: YesPlan: Patient has cultures that are growing out MRSA, staph capitis, stenotrophomonas. Has been switched over to oral Bactrim and all 3 organisms are sensitive to that. (2) Cellulitis of perineum Is this a current diagnosis for this admission?: YesPlan: Continue with Bactrim as per above (3) Hypotension Qualifiers: Hypotension type: unspecified hypotension type Qualified Code(s): I95.9 - Hypotension, unspecified Is this a current diagnosis for this admission?: YesPlan: Resolved. (4) Anemia of chronic disease Is this a current diagnosis for this admission?: Yes (5) Ascites Qualifiers: Ascites type: other type Qualified Code(s): R18.8 - Other ascites Is this a current diagnosis for this admission?: Yes (6) Aspiration into airway Is this a current diagnosis for this admission?: YesPlan: Continue with Bactrim. Patient has refused any type of swallowing studies. (7) Coagulopathy Is this a current diagnosis for this admission?: YesPlan: Patient has coagulopathy most likely secondary to his chronic alcohol use (8) Diarrhea Qualifiers: Diarrhea type: unspecified type Qualified Code(s): R19.7 - Diarrhea , unspecified Is this a current diagnosis for this admission?: Yes (9) Fatty infiltration of liver Is this a current diagnosis for this admission?: Yes (10) Hyponatremia Is this a current diagnosis for this admission?: YesPlan: Improving. (11) Alcohol abuse Is this a current diagnosis for this admission?: YesPlan: No evidence for delirium tremens. - Time Time Spent with patient: 15-24 minutes
[2016-11-27 04:49] LABS: ABSOLUTE BASOPHILS # (AUTO) 0.1 10^3/uL (0.0-0.2); ABSOLUTE EOSINOPHILS # (AUTO) 0.2 10^3/uL (0.0-0.6); ABSOLUTE LYMPHOCYTES (AUTO) 1.4 10^3/uL (0.5-4.7); ABSOLUTE MONOCYTES (AUTO) 0.6 10^3/uL (0.1-1.4); BASOPHILS % (AUTO) 1.3 % (0-2); EOSINOPHILS % (AUTO) 2.5 % (0-6); HEMATOCRIT 31.9 % (37.9-51.0); HEMOGLOBIN 10.8 g/dL (13.5-17.0); HGB HCT DIFFERENCE 0.5; MEAN CORPUSCULAR HEMOGLOBIN 33.2 pg (27.0-33.4); MEAN CORPUSCULAR HGB CONC 33.9 g/dL (32.0-36.0); MEAN CORPUSCULAR VOLUME 98 fl (80-97); MONOCYTES % (AUTO) 8.8 % (3-13); RED BLOOD COUNT 3.25 10^6/uL (4.35-5.55); RED CELL DISTRIBUTION WIDTH 14.1 % (11.5-14.0); SEGMENTED NEUTROPHILS % (AUTO) 68.4 % (42-78); WHITE BLOOD COUNT 7.4 10^3/uL (4.0-10.5)
[2016-11-27 05:03] LABS: ANION GAP 7 (5-19); BLOOD UREA NITROGEN 15 mg/dL (7-20); CALCIUM 7.5 mg/dL (8.4-10.2); CARBON DIOXIDE 27 mmol/L (22-30); CHLORIDE 107 mmol/L (98-107); CREATININE RESULT 1.04 mg/dL (0.52-1.25); GLUCOSE 81 mg/dL (75-110); POTASSIUM 3.5 mmol/L (3.6-5.0); SODIUM 140.5 mmol/L (137-145)
[2016-11-27] MEDS: SULFAMETHOXAZOLE/TRIMETHOPRIM 800-160 MG TABLET PO SCH ×2 (06:10→17:12)
[2016-11-27] MEDS: HEPARIN SOD (PORCINE) 5,000 UNIT/ML 1 ML SYRINGE SUBCUT SCH ×2 (09:29→22:20)
[2016-11-27] MEDS: NYSTATIN TOPICAL POWDER 15 GM TP SCH ×2 (09:30→17:13)
[2016-11-27] MEDS: SILVER SULFADIAZINE 1% CREAM 400 GM TP SCH ×2 (09:30→17:13)
[2016-11-27] MEDS: OXYCODONE-ACETAMINOPHEN 5-325 MG TABLET PO PRN (09:38)
[2016-11-27] MEDS: FLUCONAZOLE 100 MG TABLET PO SCH (09:44)
[2016-11-27] MEDS: LIPASE/PROTEASE/AMYLASE 1 CAP CAPSULE.DR PO SCH ×6 (09:44→17:12)
[2016-11-27] MEDS: MULTIVITAMIN TABLET PO SCH (09:44)
[2016-11-27] MEDS: CLOTRIMAZOLE/BETAMETHASONE DIP CREAM 15 GM TOP SCH ×2 (09:44→17:13)
[2016-11-27] MEDS: LACTOBACILLUS ACIDOPHILUS 250 MG TAB PO SCH ×2 (09:44→17:12)
[2016-11-27] MEDS: FOLIC ACID 1 MG TABLET PO SCH (09:44)
[2016-11-27] MEDS: THIAMINE HCL 100 MG TABLET PO SCH (09:44)
[2016-11-27] MEDS ORDERED: POTASSIUM CHLORIDE 10 MEQ TABLET.SA PO SCH (10:00)
[2016-11-27] MEDS: POTASSIUM CHLORIDE 20 MEQ/15 ML UDCUP PO SCH ×2 (12:42→22:20)
--- NOTE | 2016-11-27 16:00 | PDOC PROGRESS REPORT ---
Subjective Progress Note for:: 11/27/16 Subjective:: Patient denies any complaints. Physical Exam Vital Signs: Temp Pulse Resp BP Pulse Ox 98.2 F 84 16 102/51 L 92 11/27/16 11:33 11/27/16 11:33 11/27/16 11:33 11/27/16 11:33 11/27/16 11:33 Intake & Output 11/26/16 11/27/16 11/28/16 06:59 06:59 06:59 Intake Total 1290 793 118 Output Total 450 450 100 Balance 840 343 18 Weight 98.4 kg 100.2 kg General appearance: PRESENT: no acute distress Head exam: PRESENT: atraumatic, normocephalic Eye exam: PRESENT: conjunctiva pink. ABSENT: scleral icterus Ear exam: PRESENT: normal external ear exam Mouth exam: PRESENT: moist, tongue midline Neck exam: ABSENT: JVD Respiratory exam: PRESENT: clear to auscultation pastora. ABSENT: rales, rhonchi, wheezes Cardiovascular exam: PRESENT: RRR. ABSENT: diastolic murmur, rubs, systolic murmur Vascular exam: PRESENT: normal capillary refill GI/Abdominal exam: PRESENT: normal bowel sounds, soft. ABSENT: distended, guarding, mass, organolmegaly, rebound, tenderness Extremities exam: ABSENT: calf tenderness, clubbing, pedal edema Neurological exam: PRESENT: alert, awake, oriented to person, oriented to place , oriented to time, oriented to situation, CN II-XII grossly intact. ABSENT: motor sensory deficit Psychiatric exam: PRESENT: appropriate affect Skin exam: PRESENT: other - Erythema on the lower abdomen and perineum. Patient continues with decubitus in the sacral area Results Laboratory Results: 11/27/16 04:29 11/27/16 04:29 11/27/16 11/27/16 04:29 04:29 WBC 7.4 RBC 3.25 L Hgb 10.8 L Hct 31.9 L MCV 98 H MCH 33.2 MCHC 33.9 RDW 14.1 H Plt Count 193 Seg Neutrophils % 68.4 Lymphocytes % 19.0 Monocytes % 8.8 Eosinophils % 2.5 Basophils % 1.3 Absolute Neutrophils 5.0 Absolute Lymphocytes 1.4 Absolute Monocytes 0.6 Absolute Eosinophils 0.2 Absolute Basophils 0.1 Sodium 140.5 Potassium 3.5 L Chloride 107 Carbon Dioxide 27 Anion Gap 7 BUN 15 Creatinine 1.04 Est GFR ( Amer) > 60 Est GFR (Non-Af Amer) > 60 Glucose 81 Calcium 7.5 L Impressions: Abdomen/Pelvis CT 11/17/16 16:06 IMPRESSION: Perihepatic ascites. There is also fluid in the pelvis and in the right lower quadrant. The appendix is not visualized and therefore, appendicitis not completely excluded. There multiple small nodes in the retroperitoneum and in the mesentery which are most likely reactive. There is marked fatty infiltration of the liver. Chest X-Ray 11/21/16 00:00 IMPRESSION: Right effusion with fluid in the fissures. Basilar atelectasis. Assessment & Plan - Diagnosis (1) Cellulitis of abdominal wall Is this a current diagnosis for this admission?: YesPlan: Patient has cultures that are growing out MRSA, staph capitis, stenotrophomonas. Has been switched over to oral Bactrim and all 3 organisms are sensitive to that. (2) Cellulitis of perineum Is this a current diagnosis for this admission?: YesPlan: Continue with Bactrim as per above (3) Hypotension Qualifiers: Hypotension type: unspecified hypotension type Qualified Code(s): I95.9 - Hypotension, unspecified Is this a current diagnosis for this admission?: YesPlan: Resolved. (4) Anemia of chronic disease Is this a current diagnosis for this admission?: Yes (5) Ascites Qualifiers: Ascites type: other type Qualified Code(s): R18.8 - Other ascites Is this a current diagnosis for this admission?: Yes (6) Aspiration into airway Is this a current diagnosis for this admission?: YesPlan: Continue with Bactrim. Patient has refused any type of swallowing studies. (7) Coagulopathy Is this a current diagnosis for this admission?: YesPlan: Patient has coagulopathy most likely secondary to his chronic alcohol use (8) Diarrhea Qualifiers: Diarrhea type: unspecified type Qualified Code(s): R19.7 - Diarrhea , unspecified Is this a current diagnosis for this admission?: Yes (9) Fatty infiltration of liver Is this a current diagnosis for this admission?: Yes (10) Hyponatremia Is this a current diagnosis for this admission?: YesPlan: Improving. (11) Alcohol abuse Is this a current diagnosis for this admission?: YesPlan: No evidence for delirium tremens. (12) Decubitus ulcer Qualifiers: Pressure ulcer location: contiguous region involving back and buttock Pressure ulcer stage: stage 2 Laterality: unspecified laterality Qualified Code(s): L89.42 - Pressure ulcer of contiguous site of back, buttock and hip, stage 2 Is this a current diagnosis for this admission?: YesPlan: Continue with local wound care - Time Time Spent with patient: 25-34 minutes - Plan Summary Plan Summary: Is now agreeable to go to rehab. Will discuss with discharge planning.
[2016-11-28] MEDS: SULFAMETHOXAZOLE/TRIMETHOPRIM 800-160 MG TABLET PO SCH ×2 (06:11→17:09)
[2016-11-28] MEDS: LIPASE/PROTEASE/AMYLASE 1 CAP CAPSULE.DR PO SCH ×6 (07:34→15:37)
--- NOTE | 2016-11-28 10:11 | PDOC PROGRESS REPORT ---
Subjective Progress Note for:: 11/28/16 Subjective:: Patient denies any complaints. Physical Exam Vital Signs: Temp Pulse Resp BP Pulse Ox 97.1 F 80 20 94/65 L 92 11/28/16 08:21 11/28/16 08:21 11/28/16 08:21 11/28/16 08:21 11/28/16 08:21 Intake & Output 11/27/16 11/28/16 11/29/16 06:59 06:59 06:59 Intake Total 793 2207 Output Total 450 400 Balance 343 1807 Weight 100.2 kg 98.2 kg General appearance: PRESENT: no acute distress Eye exam: PRESENT: conjunctiva pink. ABSENT: scleral icterus Ear exam: PRESENT: normal external ear exam Mouth exam: PRESENT: moist, tongue midline Neck exam: ABSENT: carotid bruit, JVD, lymphadenopathy, thyromegaly Respiratory exam: PRESENT: clear to auscultation pastora. ABSENT: rales, rhonchi, wheezes Cardiovascular exam: PRESENT: RRR. ABSENT: diastolic murmur, rubs, systolic murmur GI/Abdominal exam: PRESENT: normal bowel sounds, soft. ABSENT: distended, guarding, mass, organolmegaly, rebound, tenderness Extremities exam: ABSENT: calf tenderness, pedal edema Neurological exam: PRESENT: alert, awake, oriented to person, oriented to place , oriented to time, oriented to situation, CN II-XII grossly intact. ABSENT: motor sensory deficit Psychiatric exam: PRESENT: appropriate affect Skin exam: PRESENT: other - Lower abdomen and perineum. Patient has a wound dressing in place on the sacrum Results Laboratory Results: 11/27/16 04:29 11/27/16 04:29 Impressions: Abdomen/Pelvis CT 11/17/16 16:06 IMPRESSION: Perihepatic ascites. There is also fluid in the pelvis and in the right lower quadrant. The appendix is not visualized and therefore, appendicitis not completely excluded. There multiple small nodes in the retroperitoneum and in the mesentery which are most likely reactive. There is marked fatty infiltration of the liver. Chest X-Ray 11/21/16 00:00 IMPRESSION: Right effusion with fluid in the fissures. Basilar atelectasis. Assessment & Plan - Diagnosis (1) Cellulitis of abdominal wall Is this a current diagnosis for this admission?: YesPlan: Patient has cultures that are growing out MRSA, staph capitis, stenotrophomonas. Has been switched over to oral Bactrim and all 3 organisms are sensitive to that. (2) Cellulitis of perineum Is this a current diagnosis for this admission?: YesPlan: Continue with Bactrim as per above (3) Hypotension Qualifiers: Hypotension type: unspecified hypotension type Qualified Code(s): I95.9 - Hypotension, unspecified Is this a current diagnosis for this admission?: YesPlan: Resolved. (4) Anemia of chronic disease Is this a current diagnosis for this admission?: Yes (5) Ascites Qualifiers: Ascites type: other type Qualified Code(s): R18.8 - Other ascites Is this a current diagnosis for this admission?: Yes (6) Aspiration into airway Is this a current diagnosis for this admission?: YesPlan: Continue with Bactrim. Patient has refused any type of swallowing studies. (7) Coagulopathy Is this a current diagnosis for this admission?: YesPlan: Patient has coagulopathy most likely secondary to his chronic alcohol use (8) Diarrhea Qualifiers: Diarrhea type: unspecified type Qualified Code(s): R19.7 - Diarrhea , unspecified Is this a current diagnosis for this admission?: YesPlan: Resolved (9) Fatty infiltration of liver Is this a current diagnosis for this admission?: Yes (10) Hyponatremia Is this a current diagnosis for this admission?: YesPlan: Improving. (11) Alcohol abuse Is this a current diagnosis for this admission?: YesPlan: No evidence for delirium tremens. (12) Decubitus ulcer Qualifiers: Pressure ulcer location: contiguous region involving back and buttock Pressure ulcer stage: stage 2 Laterality: unspecified laterality Qualified Code(s): L89.42 - Pressure ulcer of contiguous site of back, buttock and hip, stage 2 Is this a current diagnosis for this admission?: YesPlan: Continue with local wound care. Will plan on discharge to halfway facility tomorrow - Time Time Spent with patient: 25-34 minutes - Inpatient Certification Medical Necessity: Need Close Monitoring Due to Risk of Patient Decompensation - Plan Summary Plan Summary: Plan on discharge to halfway facility tomorrow.
[2016-11-28] MEDS: CLOTRIMAZOLE/BETAMETHASONE DIP CREAM 15 GM TOP SCH ×2 (10:48→17:10)
[2016-11-28] MEDS: HEPARIN SOD (PORCINE) 5,000 UNIT/ML 1 ML SYRINGE SUBCUT SCH ×2 (10:48→23:01)
[2016-11-28] MEDS: POTASSIUM CHLORIDE 20 MEQ/15 ML UDCUP PO SCH ×2 (10:48→23:04)
[2016-11-28] MEDS: SILVER SULFADIAZINE 1% CREAM 400 GM TP SCH ×2 (10:49→17:10)
[2016-11-28] MEDS: THIAMINE HCL 100 MG TABLET PO SCH (10:49)
[2016-11-28] MEDS: LACTOBACILLUS ACIDOPHILUS 250 MG TAB PO SCH ×2 (10:49→17:11)
[2016-11-28] MEDS: MULTIVITAMIN TABLET PO SCH (10:49)
[2016-11-28] MEDS: NYSTATIN TOPICAL POWDER 15 GM TP SCH ×2 (10:49→17:11)
[2016-11-28] MEDS: FOLIC ACID 1 MG TABLET PO SCH (10:49)
[2016-11-29] MEDS: SULFAMETHOXAZOLE/TRIMETHOPRIM 800-160 MG TABLET PO SCH (05:19)
[2016-11-29] MEDS: LIPASE/PROTEASE/AMYLASE 1 CAP CAPSULE.DR PO SCH ×3 (08:21)
[2016-11-29] MEDS: OXYCODONE-ACETAMINOPHEN 5-325 MG TABLET PO PRN ×2 (08:21→14:48)
--- NOTE | 2016-11-29 10:04 | PDOC TRANSFER SUMMARY ---
General - Admit/Disc Date/PCP Admission Date/Primary Care Provider: 11/17/16 21:54 ELEANOR PRIETO PA-C Discharge Date: 11/29/16 - Discharge Diagnosis (1) Cellulitis of abdominal wall Is this a current diagnosis for this admission?: YesSummary: Patient has cellulitis of the abdominal wall as well as the perineum. Blood cultures grew out staph capitis. Patient was initially on IV antibiotics but was transitioned over to Bactrim. The patient will complete a total of 21 days of antibiotics. There will be 9 additional days of oral Bactrim as an outpatient. (2) Cellulitis of perineum Is this a current diagnosis for this admission?: Yes (3) Hypotension Is this a current diagnosis for this admission?: YesSummary: Initially presented with sepsis secondary to the underlying infection which resolved with IV fluids (4) Anemia of chronic disease Is this a current diagnosis for this admission?: Yes (5) Ascites Is this a current diagnosis for this admission?: YesSummary: Secondary to his chronic alcohol use and early cirrhosis (6) Aspiration into airway Is this a current diagnosis for this admission?: YesSummary: Sputum cultures grew out stenotrophomonas, MRSA, Bertha. Patient is on Bactrim which covers all of these bacterial organisms (7) Coagulopathy Is this a current diagnosis for this admission?: YesSummary: Secondary to chronic alcohol use. (8) Diarrhea Is this a current diagnosis for this admission?: YesSummary: Patient had negative C. difficile cultures. Patient is on lactobacillus and Imodium. (9) Fatty infiltration of liver Is this a current diagnosis for this admission?: Yes (10) Hyponatremia Is this a current diagnosis for this admission?: YesSummary: Resolved (11) Alcohol abuse Is this a current diagnosis for this admission?: YesSummary: Patient had no evidence for delirium tremens during his hospitalization. (12) Decubitus ulcer Is this a current diagnosis for this admission?: YesSummary: Has a stage II decubitus on his sacrum and buttocks. He also has a skin ulceration on his left wiley. These are being treated with local wound care with dressing changes daily and Silvadene. (13) Urinary retention Is this a current diagnosis for this admission?: YesSummary: Has required a Bazzi catheter because of recurrent urinary retention. - Additional Information Resuscitation Status: Full Code Discharge Diet: Cardiac Discharge Activity: Activity As Tolerated Home Medications: Clotrimazole/Betamethasone Dip [Lotrisone Cream 15 gm] 1 applic TOP BID tube Folic Acid [Folvite 1 mg Tablet] 1 mg PO DAILY tablet 11/29/16 Ipratropium/Albuterol Sulfate [Duoneb 3 ml Ampul] 3 ml NEB RTQ4HP PRN vial.neb 11/29/16 Loperamide HCl [Imodium 2 mg Capsule] 2 mg PO Q4HP PRN #21 cap 11/29/16 Multivitamin [Tab-A-Jose (Multiple Vitamin) Tablet] 1 tab PO DAILY tablet 11/29 Nicotine [Nicoderm 21 mg/24 Hr Transderm Patch] 1 each TD DAILYP PRN patch.td24 11/29/16 Nystatin [Mycostatin Topical Powder 15 gm] 1 applic TP BID bottle 11/29/16 Oxycodone HCl/Acetaminophen [Percocet 5-325 mg Tablet] 1 tab PO Q4HP PRN #30 tablet 11/29/16 Potassium Chloride [Kaon-Cl 20 Meq/15 ml Udcup] 10 meq PO Q12 udc 11/29/16 Silver Sulfadiazine [Silvadene 1% Cream 400 gm] 1 applic TP BID jar 11/29/16 Sulfamethoxazole/Trimethoprim [Septra-Ds 800-160 mg Tablet] 1 tab PO Q12A #18 tablet 11/29/16 Thiamine HCl [Thiamine 100 mg Tablet] 100 mg PO DAILY tablet 11/29/16 History of Present Illness Admission Date/PCP: 11/17/16 21:54 ELEANOR PRIETO PA-C History of Present Illness: ROSANNE WILCOX is a 71 year old male, 2 pack-a-day smoker, heavy alcohol use, who lives alone, who presents to the emergency room for evaluation of above complaints. Patient has been discussed with emergency room physician who evaluated the patient. Hospitalized on our service October 23 through the of this year with final diagnoses including sepsis, felt secondary to infectious colitis although C. difficile cultures were negative. Diagnoses also include hypotension decubitus ulcers of buttocks and right foot and urinary retention requiring application of Bazzi catheter which is since been removed. Chest x-ray during that hospital stay also revealed probable right lower lobe pneumonia. Was discharged on Cipro and Augmentin, which he states he took as prescribed. Discharge summary reviewed. Normally no daily medications. States diarrhea has persisted. Multiple watery stools per day. Possibly some blood in the stool. Mild occasional abdominal discomfort. However, denies chest pain. No nausea vomiting, fever or chills. Has had a recent persistent cough. Systolic pressures have been as low as 85, although are gradually coming up with IV fluids along with antibiotic treatment. Has what appears to be a prominent probable fungal rash involving his lower abdominal wall, groin and perineum. Prior to my seeing the patient, he was seen by on-call general surgery who felt that no surgical intervention is warranted. He has also been complaining of significant burning stinging pain of his posterior thighs due to rash/cellulitis noted on exam. Brother lives down the road from him and provides some assistance. Goes to wound clinic every 3 weeks or so. Home health has been coming out 2-3 times a week for dressing changes on his right foot and left lower leg. States he is able to ambulate with a walker, but from overall examination of this gentleman, he likely spends most of his days just lying in bed. Hospital Course Hospital Course: 71-year-old gentleman who presented with sepsis with hypotension secondary to cellulitis with abdominal and perineal area. The patient was started on IV fluids as well as broad-spectrum antibiotics in the form of cefepime and vancomycin. The patient eventually grew out staph capitis from blood cultures. The patient also had sputum cultures that grew out stenotrophomonas and MRSA. The patient was eventually transitioned over to oral antibiotics in the form of Bactrim. The patient's cellulitis of the abdomen and perineum improved. The patient also has had problems with recurrent urinary retention and a Bazzi catheter was reinserted when he presented because of retention. The patient has had problems with ambulation and was felt that he would benefit from rehabilitation. He also has several nonhealing areas on his right foot, left wiley, sacrum, bilateral buttocks. These are being treated with daily dressing changes along with Silvadene ointment to the affected areas. Patient will need daily dressing changes along with rehabilitation and physical therapy to get stronger. Patient is agreeable to go to [facility]. The patient also has a history of alcohol abuse but did not have any episodes of delirium tremens while hospitalized. He has not required any Ativan. Patient also does have coagulopathy secondary to his chronic alcohol use and he has some ascites but no evidence for any type of active bleeding. Patient also has had problems with recurrent diarrhea and had a negative C. difficile culture. Patient was hospitalized previously this admission with infectious colitis which improved with antibiotics. We will continue with lactobacillus and Imodium for his diarrhea control. Physical Exam Vital Signs: Temp Pulse Resp BP Pulse Ox 97.4 F 91 18 106/64 96 11/29/16 07:17 11/29/16 07:17 11/29/16 07:17 11/29/16 07:17 11/29/16 07:17 Intake & Output 11/28/16 11/29/16 11/30/16 06:59 06:59 06:59 Intake Total 2207 1543 Output Total 400 425 Balance 1807 1118 Weight 98.2 kg 101.1 kg General appearance: PRESENT: no acute distress Eye exam: PRESENT: conjunctiva pink. ABSENT: scleral icterus Mouth exam: PRESENT: moist, tongue midline Neck exam: ABSENT: JVD Respiratory exam: ABSENT: rales, rhonchi, wheezes Cardiovascular exam: PRESENT: RRR. ABSENT: diastolic murmur, rubs, systolic murmur GI/Abdominal exam: PRESENT: normal bowel sounds, soft. ABSENT: distended, guarding, mass, organolmegaly, rebound, tenderness Extremities exam: PRESENT: other - History of right foot partial amputation. There are several small nonhealing ulcers with good granulation tissue present.. ABSENT: calf tenderness, clubbing, pedal edema Neurological exam: PRESENT: alert, awake, oriented to person, oriented to place , oriented to time, oriented to situation, CN II-XII grossly intact. ABSENT: motor sensory deficit Psychiatric exam: PRESENT: appropriate affect Skin exam: PRESENT: other - Erythematous sacrum and buttocks bilaterally. Patient has a area on the left buttock approximately 2 cm in size that is a stage II decubitus. Patient also has several areas on the right foot on the medial aspect shallow ulcerations. There is also skin breakdown on the left wiley with no erythema. Results Laboratory Results: 11/27/16 04:29 11/27/16 04:29 Impressions: Abdomen/Pelvis CT 11/17/16 16:06 IMPRESSION: Perihepatic ascites. There is also fluid in the pelvis and in the right lower quadrant. The appendix is not visualized and therefore, appendicitis not completely excluded. There multiple small nodes in the retroperitoneum and in the mesentery which are most likely reactive. There is marked fatty infiltration of the liver. Chest X-Ray 11/21/16 00:00 IMPRESSION: Right effusion with fluid in the fissures. Basilar atelectasis. Transfer Plan - Disposition Transfer Plan: Patient is transferred to [facility] for dressing changes daily and PT and OT - Time Spent with Patient Time spent with patient: Greater than 30 Minutes Qualifiers PATEINT BEING DISCHARGED WITH ANY OF THE FOLLOWING DIAGNOSIS?: No Plan Discharge Plan: Her to [facility] for further rehab. Time Spent: Greater than 30 Minutes
[2016-11-29] MEDS: SILVER SULFADIAZINE 1% CREAM 400 GM TP SCH (10:32)
[2016-11-29] MEDS: CLOTRIMAZOLE/BETAMETHASONE DIP CREAM 15 GM TOP SCH (10:32)
[2016-11-29] MEDS: NYSTATIN TOPICAL POWDER 15 GM TP SCH (10:32)
[2016-11-29] MEDS: THIAMINE HCL 100 MG TABLET PO SCH (10:35)
[2016-11-29] MEDS: FOLIC ACID 1 MG TABLET PO SCH (10:35)
[2016-11-29] MEDS: LACTOBACILLUS ACIDOPHILUS 250 MG TAB PO SCH (10:36)
[2016-11-29] MEDS: MULTIVITAMIN TABLET PO SCH (10:36)
[2016-11-29] MEDS: POTASSIUM CHLORIDE 20 MEQ/15 ML UDCUP PO SCH (10:38)
[2016-11-29] MEDS: HEPARIN SOD (PORCINE) 5,000 UNIT/ML 1 ML SYRINGE SUBCUT SCH (10:39)
[2016-11-29 12:36] VITALS: BP 110/60
--- NOTE | 2016-12-06 16:53 | PSYCHOLOGICAL NOTE ---
Psych Note - Psych Note Psych Note: Note: This is a Capacity Evaluation Patient is a 71-year-old male who presented to [facility] Emergency Department on 11/17/16 via EMS for weakness and ongoing diarrhea. He was subsequently admitted to the third floor for Acute Renal Failure (ARF), Cellulitis of the left thigh, Cellulitis of the right thigh, cough, diarrhea, Hyponatremia, Septic Shock, Alcohol Abuse, Debility, Right foot ulcer, Rash ( probable fungal involving lower abdomen wall, groin, and perineum), Tobacco Dependency, and Ambulatory Dysfunction. He has been retired since 2004 from [employer]. His medical insurance is [employer] and Medicare A & B. He receives Social Security benefits through [employer] and jail checks. His living arrangement is alone in a private residence. He has a brother who lives down the road from him. It is reported his brother provides the patient with alcohol, and medical staff reported the brother brought patient cigarettes to the hospital and patient smoked. Review of chart revealed Patients medical history is positive for Hypotension Infection Colitis, Foot Ulcer, Nicotine Use, and Alcohol Use. There are no home medications listed. Hospital prescribed medications include a list of 17 medications, none of which are psychiatric. There is no Head CT on file. Current visit revealed the patient was disoriented when he first awakened with subsequent confusion on 11/25/2016. Medical staff reported he is irritable and demanding. Patient is a fall risk. He is on aspiration precautions. He is taking part in Physical therapy while in the hospital. He was medically admitted 10/23/2016 through 10/29/2016 for Hypotension Infectious Colitis. Other medical issues at that visit included: hypotension decubitus ulcers of buttocks and right foot, Urinary Tract Infection (UTI) which required a Bazzi Catheter, and chest X-ray revealed probable pneumonia right lower lobe. At that time was discharged with Home Health and antibiotics (Cipro and Augmentin). He informed medical staff during his visit he completed the oral medications and had not followed up with Primary Care provider. The role of a capacity evaluation is to assess and measure a Patients abstract/ rational level of thinking, executive functioning/planning/sequencing, executive functioning/switching, attention, orientation, safety/problem solving , memory, ability to complete daily living activities, and safety awareness. During the capacity evaluation patient presented agitated, however, easily redirected. He answered all questions when addressed, often needing prompting. He was alert and oriented to person, place, time, and situation. Mood was irritable with congruent affect. There were no statements or gestures made regarding suicidal and homicidal ideations. He did not appear to be responding to internal stimuli as evidenced by answering questions when addressed, his ability to stay on task, and fair eye contact. Thought processes were concrete and he at times went on tangents. Conversational speech was within normal limits for rate, tone, and prosody. Intellectual abilities are estimated within the average range. Insight, judgment, and impulse control were impaired as evidenced by lack of medical problem knowledge. Patient correctly answered 8 of 11 orientation questions. He incorrectly answered todays date as I know but I dont know the I believe something like that, the month as December, current location where wards are. Patient incorrectly answered 2 of 3 higher cortical abstract reasoning questions in which Patient is required to describe how two items are similar. These results suggested concrete thinking and difficulties employing skills necessary to navigate the nuances of conversation and activities. Patient could repeat the name of 3-common objects after examiner instruction. After a minute delay, he recalled 0/3 of the objects presented and utilized information from latter tasks. He accurately spelled the word world forward but was unable to spell it backwards. He said [id number]. Patients problem solving for questions regarding personal safety or the safety of others was 50/50 and he failed this task. He stated he would pull all the stoppers out and turn water off if he came home and found his bathroom was flooding. He stated he would call the fire department if he saw smoke coming from his neighbors house. The Patient was administered the Clock Drawing Test, a standardized and peer reviewed measure of dementia. He commented he cant feel his hands and would have difficulty with this task. He was tremulous with his hands. He telly a large prairie band in the center of portrait paper. He began numbering with time, starting with number 1. As he put the numbers in he would say them and write as then explain regular time. His spacing was off and he recognized this. He did not attempt to place the hands as verbally instructed. As such, the Patient showed poor organizational and sequencing abilities, and special awareness with the clock drawing task, with a failing score. In terms of his ability to complete tasks of everyday living (e.g., mobility, bathing, cooking, grocery shopping, taking medications appropriately, etc.), the Patient reported and Discharge Planning documentation noted patient has 2-3 neighbors that help with cleaning the house and yard work, grocery shopping, cooking or purchasing restaurant food, bathing and dressing him, and getting his mail. Discharge planning documentation noted patient presented to the hospital covered in feces because he often urinates and defecates on himself. He reported he has a wheelchair, a ramp, and numerous walkers at home. Documentation identified he wears glasses. He could manipulate a pen for the clock drawing task and can therefore do the same with eating utensils. He stated he has a drivers license however stated, I dont drive for a reason I know I dont have sense on the highway. He stated he was in the hospital because of his stomach and lacked knowledge regarding his medical issues. Discharge Planning noted patient reported going to an Urgent Care Clinic in [place] and a Foot doctor but he did not know the name or the physician. Documentation stated patient has In-Home Health 2-3 times a week for dressing changes to right foot and left lower leg, as well as he goes to the wound clinic every 3 weeks or so, and therapy is to be started but it has yet to. Results of the current evaluation revealed poor orientation items related to here and now, concrete thinking patterns, poor memory, poor sequencing, poor organizational abilities, poor problem solving and safety, an inability to perform own ADLs, and poor insight into current medical problems and how they impact his life. Impression: The Patient is a 71-year-old male who returned to the hospital as a 30 day readmit. Pictures on patients chart show significant rashes and bed sores on his front side (lower abdomen past groin area), lower back side down past the buttocks, right side hip area down leg, left side hip area down leg, lower legs , foot, and numerous lab findings were off. He does not follow up with a doctor regularly and has not had any follow up from his 10/29/2016 medical inpatient discharge other than In-Home Health which was arranged prior to that discharge. Patient stated since his jail in 2004 he has been sorry and lazy, lays in bed all day, watches TV, and doesnt eat. Patient reported being a heavy drinker during his days and commented I cant drink like I used to. His Serum Alcohol Level upon arrival to the ED on 10/23/2016 was 88. Documentation noted patient is a 2 pack a day smoker. He has denied Prison Facility and Rehabilitative (accepted at two facilities) recommendations made by medical providers. Discharge Planning is working on [facility] assistance given patient is 70% service connected. Overall, results of the current capacity evaluation, inclusive of medical records revealed poor orientation to here and now items, concrete thinking patterns, poor memory, poor sequencing, poor organizational abilities, poor problem solving and safety, an inability to perform own ADLs, and concern with respect to patient not knowing current medical issues. Patient has a history of alcohol use, currently drinks, and smokes cigarettes. The areas of concern listed above and his chronic alcohol use suggest likely neurodegenerative processes. Subsequently, the patients insight, judgment, and impulse control are impaired and inhibit his ability to safely navigate his environment or make decisions that are in his best interest. He will likely have difficulty making safe and appropriate decisions without assistance for legal, financial, medical and personal concerns. In my clinical opinion, with a reasonable degree of medical and clinical certainty, the Patient would benefit from a responsible and reliable Guardian to manage his medical, financial, legal, and personal affairs. His continued smoking and drinking, and mobility issues and impaired ability to navigate his environment safely, will negatively impact his medical issues, and his overall abilities to manage independently and without supervision for the foreseeable future. Thus, it is recommended the patient be placed in a monitored setting with 24-hour supervision, assistance, and predictability. The following diagnoses are offered: DIAGNOSES: 1. 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 303.90 (F10.20) Alcohol Use Disorder, Moderate to Severe 3. Ambulatory dysfunction 4. Acute Renal Failure 5. Septic Shock 6. Ulcers, Sores, and Rashes (Cellulitis, fungal likely) all over lower half of body RECOMMENDATIONS: 1. A responsible and reliable Guardian is recommended to manage the Patients personal, legal, financial, and medical affairs. 2. Referral to a Neurologist is recommended to further determine neurodegenerative processes and subsequently manage symptoms. 3. Psychiatric consultation with a provider is recommended to manage depression and sequalae. 4. Recommend patient be screened for driving capabilities. 5. Patient would benefit from a 24-hour supervised, structured, and predictable living environment where staff is available for continued everyday management and monitoring. Consulted with Dr. Nunez regarding this capacity evaluation and she agrees with the findings and recommendations.
== END 2016-11-29 16:01 | DRG 872 ==
LOC: ER 13:49 → EH 19:45 → UNDOADMIN 19:45 → EH 21:54 → ICU 11-18 00:03 → 3W 11-18 12:11
PROVIDERS: ADMIT Family Medicine; ATTEND Family Medicine
DX: A41.9 Sepsis, unspecified organism (principal); L03.311 Cellulitis of abdominal wall; L03.315 Cellulitis of perineum; N17.9 Acute kidney failure, unspecified; E87.1 Hypo-osmolality and hyponatremia; B95.62 Methicillin resistant Staphylococcus aureus infection as the cause of diseases classified elsewhere; I95.9 Hypotension, unspecified; D63.8 Anemia in other chronic diseases classified elsewhere; K70.31 Alcoholic cirrhosis of liver with ascites; T17.920A Food in respiratory tract, part unspecified causing asphyxiation, initial encounter; R19.7 Diarrhea, unspecified; K70.0 Alcoholic fatty liver; L89.152 Pressure ulcer of sacral region, stage 2; L89.322 Pressure ulcer of left buttock, stage 2; L89.312 Pressure ulcer of right buttock, stage 2; L89.892 Pressure ulcer of other site, stage 2; R33.9 Retention of urine, unspecified; Z79.899 Other long term (current) drug therapy; F17.210 Nicotine dependence, cigarettes, uncomplicated
CPT/HCPCS: 36415; 51702; 71010; 74177; 80048; 80053; 80202; 80307; 81001; 82150; 82565; 82803; 83605; 83690; 83735; 85025; 85027; 85610; 87040; 87070; 87077; 87086; 87186; 87205; 87493; 93005; 93010; 96361; 96365; 96367; 99291; G8978-GP; G8979-GP; J0692; J0743; J1644; J1940; J2543; J3370; J3411; J3475; J3490; J7030; J7060; J7120

== ENCOUNTER 2016-12-13 16:51 | Emergency (ER) | payer MEDICARE ==
--- NOTE | 2016-12-13 17:22 | ER Document Report ---
ED Psych Disorder / Suicide - General Mode of Arrival: Medic Information source: Patient TRAVEL OUTSIDE OF THE [place] IN LAST 30 DAYS: No - HPI Patient complains to provider of: Other - not caring for self Associated symptoms: Other - See above <KAILASH BOBBY - Last Filed: 12/13/16 18:05> <MAYRA BREWER - Last Filed: 12/14/16 00:14> <JESSICA LOPEZ - Last Filed: 12/14/16 02:36> - General Chief Complaint: Psych Problem Stated Complaint: PSYCH EVAL Time Seen by Provider: 12/13/16 16:57 Notes: Patient is a 71 year old male, with a past medical history including dementia, who presents to the emergency department on IVC orders reporting he is unable to care for himself at home. Patient lives alone and has home health caretakers that come and check on him. Patient was in this facility in October and November with infections and was discharged to a rehabilitation center but then went home where he lives alone. Patient was found today sitting naked in a chair, not having taken care of his wounds, and having recently been drinking. Patient admits to drinking beer regularly with his last drink yesterday. Patient's brother lives down the street and will bring patient alcohol and cigarets. Patient does not want to be here. (KAILASH BOBBY) - Related Data Allergies/Adverse Reactions: No Known Allergies Allergy (Verified 10/23/16 16:22) Past Medical History - General Information source: Patient, COUNT INCLUD[facility] Records - Social History Smoking Status: Current Every Day Smoker Cigarette use (# per day): Yes - 2 ppd Frequency of alcohol use: Heavy Family History: Reviewed & Not Pertinent Musculoskeltal Medical History: Reports Hx Arthritis Psychiatric Medical History: Reports: Hx Dementia Past Surgical History: Reports: Hx Orthopedic Surgery - toe amputation, Other - cataract <KAILASH BOBBY - Last Filed: 12/13/16 18:05> Review of Systems - Review of Systems Constitutional: No symptoms reported EENT: No symptoms reported Cardiovascular: No symptoms reported Respiratory: No symptoms reported Gastrointestinal: No symptoms reported Genitourinary: No symptoms reported Male Genitourinary: No symptoms reported Musculoskeletal: No symptoms reported Skin: No symptoms reported Hematologic/Lymphatic: No symptoms reported Neurological/Psychological: No symptoms reported -: Yes All other systems reviewed and negative <KAILASH BOBBY - Last Filed: 12/13/16 18:05> Physical Exam - Vital signs Interpretation: Normal - General General appearance: Alert, Other - Somewhat unkempt and cantankerous - HEENT Head: Normocephalic, Atraumatic - Respiratory Respiratory status: No respiratory distress Chest status: Nontender Breath sounds: Rhonchi, Other - congested cough Chest palpation: Normal - Cardiovascular Rhythm: Regular Heart sounds: Normal auscultation Murmur: No - Extremities General lower extremity: Edema - chronic bilaeral edema and cellulitis, Other - 2cm sacral decubitus ulcer stage 2. Wrist: Abrasion - Fresh abrasion with dried blood on right dorsal wrist, left wrist has an old abrasion Calf: Other - left lateral lower leg bandage in place Foot: Other - bandage over left heel - Neurological Neuro grossly intact: Yes - slighlty demented Cognition: Normal Orientation: AAOx4 Roosevelt Coma Scale Eye Opening: Spontaneous Roosevelt Coma Scale Verbal: Oriented Erin Coma Scale Motor: Obeys Commands Erin Coma Scale Total: 15 Speech: Normal - Psychological Associated symptoms: Normal affect, Normal mood - Skin Skin Temperature: Warm Skin Moisture: Dry Skin irregularity: Rash - rash on left anterior lateral lower leg <KAILASH BOBBY - Last Filed: 12/13/16 18:05> Course <KAILASH BOBBY - Last Filed: 12/13/16 18:05> - Laboratory Result Diagrams: 12/13/16 18:29 12/13/16 18:29 <MAYRA BREWER - Last Filed: 12/14/16 00:14> - Laboratory Result Diagrams: 12/13/16 18:29 12/13/16 18:29 <JESSICA LOPEZ - Last Filed: 12/14/16 02:36> - Re-evaluation Re-evalutation: 12/14/16 02:35 The nurse came to inform me the patient had a scab over his urethra. I did remove the scab and he had purulent drainage coming from the urethra consistent with that of gonorrhea chlamydia. Patient says he is sexually active. I did obtain a urethral swab and sent to the lab. (JESSICA LOPEZ) - Vital Signs Vital signs: Temp Pulse Resp BP Pulse Ox 97.5 F 98 19 127/81 H 95 12/13/16 19:24 12/13/16 16:56 12/13/16 19:24 12/13/16 19:24 12/13/16 16:56 - Laboratory Laboratory results interpreted by me: 12/13/16 12/13/16 18:29 18:29 RBC 3.69 L Hgb 11.6 L Hct 35.7 L RDW 14.1 H Calcium 7.8 L Direct Bilirubin 0.5 H Alkaline Phosphatase 131 H Albumin 2.3 L Salicylates < 1.0 L Acetaminophen < 10 L Discharge <KAILASH BOBBY - Last Filed: 12/13/16 18:05> <MAYRA BREWER - Last Filed: 12/14/16 00:14> <JESSICA LOPEZ - Last Filed: 12/14/16 02:36> - Discharge Clinical Impression: Involuntary commitment, Tobacco dependency Leg ulcer, left Qualifiers: Non-pressure ulcer stage: limited to breakdown of skin Qualified Code(s): L97.921 - Non-pressure chronic ulcer of unspecified part of left lower leg limited to breakdown of skin Decubitus ulcer Qualifiers: Pressure ulcer location: sacral region Pressure ulcer stage: stage 2 Qualified Code(s): L89.152 - Pressure ulcer of sacral region, stage 2 Alcohol dependency Qualifiers: Substance use status: uncomplicated Qualified Code(s): F10.20 - Alcohol dependence, uncomplicated Condition: Stable Disposition: PSYCH HOSP/UNIT Scribe Attestation: 12/14/16 00:17 I personally performed the services described in the documentation, reviewed and edited the documentation which was dictated to the scribe in my presence, and it accurately records my words and actions. (MAYRA BREWER) Scribe Documentation - Scribe Written by Scribe:: elham Watson, 12/13/16, [id number] acting as scribe for :: Clay <KAILASH BOBBY - Last Filed: 12/13/16 18:05>
--- NOTE | 2016-12-13 17:48 | RADIOLOGY REPORT (SQ) ---
EXAM DESCRIPTION: CT HEAD WITHOUT COMPLETED DATE/TIME: 12/13/2016 5:40 pm REASON FOR STUDY: DEMENTIA COMPARISON: None. TECHNIQUE: Axial images acquired through the brain without intravenous contrast. Images reviewed wi th bone, brain and subdural windows. Images stored on PACS. All CT scanners at this facility use dose modulation, iterative reconstruction, and/or weight based d osing when appropriate to reduce radiation dose to as low as reasonably achievable (ALARA). [facility]: Dose Right [facility]: CareDose [facility]: Dose Right [facility]: Teradose 4D [facility]: Dobleas RADIATION DOSE: Up-to-date CT equipment and radiation dose reduction techniques were employed. CTDIv ol: 62.3 mGy. DLP: 1163 mGy-cm.mGy. LIMITATIONS: None. FINDINGS: VENTRICLES: Prominent. CEREBRUM: No masses. No hemorrhage. No midline shift. Areas of low density in the white matter mos t likely due to chronic micro-vascular ischemic change. No evidence for acute infarction. CEREBELLUM: No masses. No hemorrhage. No alteration of density. No evidence for acute infarction. EXTRAAXIAL SPACES: Age-related involutional change. No fluid collections. No masses. ORBITS AND GLOBE: No intra- or extraconal masses. Normal contour of globe without masses. CALVARIUM: No fracture. PARANASAL SINUSES: No fluid or mucosal thickening. SOFT TISSUES: No mass or hematoma. OTHER: No other significant finding. IMPRESSION: CHRONIC CHANGES OF ATROPHY AND MICROVASCULAR ISCHEMIA. NO ACUTE PROCESS. TECHNICAL DOCUMENTATION: JOB ID: [id number] Quality ID # [id number]: Final reports with documentation of one or more dose reduction techniques (e.g., Au tomated exposure control, adjustment of the mA and/or kV according to patient size, use of iterative reconstruction technique) 2010 [employer]- All Rights Reserved
--- NOTE | 2016-12-13 17:50 | RADIOLOGY REPORT (SQ) ---
EXAM DESCRIPTION: CHEST SINGLE VIEW COMPLETED DATE/TIME: 12/13/2016 5:41 pm REASON FOR STUDY: CONGESTION COMPARISON: None. EXAM PARAMETERS: NUMBER OF VIEWS: One view. TECHNIQUE: Single frontal radiographic view of the chest acquired. RADIATION DOSE: NA LIMITATIONS: None. FINDINGS: LUNGS AND PLEURA: Opacity noted in the right lung base likely representing a combination o f atelectasis with associated effusion. No pneumothorax identified. Left lung is clear. MEDIASTINUM AND HILAR STRUCTURES: No masses. Contour normal. HEART AND VASCULAR STRUCTURES: Cardiac size is stable. No pulmonary vascular congestion. BONES: No acute findings. HARDWARE: None in the chest. OTHER: No other significant finding. IMPRESSION: Right lung base opacity likely representing combination of atelectasis/ infiltrate and e ffusion. TECHNICAL DOCUMENTATION: JOB ID: [id number]
[2016-12-13 18:38] LABS: ABSOLUTE BASOPHILS # (AUTO) 0.1 10^3/uL (0.0-0.2); ABSOLUTE EOSINOPHILS # (AUTO) 0.2 10^3/uL (0.0-0.6); ABSOLUTE LYMPHOCYTES (AUTO) 1.1 10^3/uL (0.5-4.7); ABSOLUTE MONOCYTES (AUTO) 0.6 10^3/uL (0.1-1.4); ABSOLUTE NEUT (AUTO) 6.4 10^3/uL (1.7-8.2); BASOPHILS % (AUTO) 0.9 % (0-2); HEMATOCRIT 35.7 % (37.9-51.0); HEMOGLOBIN 11.6 g/dL (13.5-17.0); HGB HCT DIFFERENCE -0.9; LYMPHOCYTES % (AUTO) 13.6 % (13-45); MEAN CORPUSCULAR HEMOGLOBIN 31.5 pg (27.0-33.4); MEAN CORPUSCULAR HGB CONC 32.6 g/dL (32.0-36.0); MEAN CORPUSCULAR VOLUME 97 fl (80-97); MONOCYTES % (AUTO) 7.6 % (3-13); RED BLOOD COUNT 3.69 10^6/uL (4.35-5.55); RED CELL DISTRIBUTION WIDTH 14.1 % (11.5-14.0); SEGMENTED NEUTROPHILS % (AUTO) 75.9 % (42-78); WHITE BLOOD COUNT 8.4 10^3/uL (4.0-10.5)
[2016-12-13 18:58] LABS: ALANINE AMINOTRANSFERASE 43 U/L (21-72); ALBUMIN 2.3 g/dL (3.5-5.0); ALKALINE PHOSPHATASE 131 U/L (38-126); ANION GAP 8 (5-19); ASPARTATE AMINO TRANSFERASE 56 U/L (17-59); BILIRUBIN,DIRECT 0.5 mg/dL (0.0-0.4); BILIRUBIN,TOTAL 0.8 mg/dL (0.2-1.3); BLOOD UREA NITROGEN 11 mg/dL (7-20); CALCIUM 7.8 mg/dL (8.4-10.2); CARBON DIOXIDE 27 mmol/L (22-30); CHLORIDE 105 mmol/L (98-107); CREATININE RESULT 1.14 mg/dL (0.52-1.25); GLUCOSE 95 mg/dL (75-110); POTASSIUM 4.1 mmol/L (3.6-5.0); SODIUM 139.6 mmol/L (137-145); TOTAL PROTEIN 7.4 g/dL (6.3-8.2)
[2016-12-13 18:59] LABS: ALCOHOL < 10 mg/dL (NONE DETECTED)
--- NOTE | 2016-12-13 21:09 | EKG REPORT ---
SEVERITY:- ABNORMAL ECG - SINUS TACHYCARDIA LOW VOLTAGE THROUGHOUT : Confirmed by: Vern Coates MD 13-Dec-2016 21:09:07
[2016-12-13] MEDS ORDERED: NICOTINE 21 MG/24 HR PATCH.TD24 TD ONE (21:44)
[2016-12-13] MEDS ORDERED: OXYCODONE-ACETAMINOPHEN 5-325 MG TABLET PO ONE (22:44)
[2016-12-13] MEDS: IPRATROPIUM/ALBUTEROL 0.5-2.5 MG/3 ML AMPUL NEB SCH (23:10)
[2016-12-14] MEDS: IPRATROPIUM/ALBUTEROL 0.5-2.5 MG/3 ML AMPUL NEB SCH ×3 (07:05→19:13)
--- NOTE | 2016-12-14 08:24 | ER Document Report ---
Doctor's Note Notes: 12/14/16 08:23 Patient seen and evaluated by me. Medical records reviewed. Patient appears to be at his baseline dementia. Vital signs are stable. He is awake and alert without complaint. Awaiting mental health recommendations. Discussed patient with RN caring for him as well.
[2016-12-14] MEDS ORDERED: BUSPIRONE HCL 10 MG TABLET PO SCH (22:00)
[2016-12-14] MEDS: DIVALPROEX SODIUM 500 MG TAB.SR.24H PO SCH (22:21)
[2016-12-15] MEDS: IPRATROPIUM/ALBUTEROL 0.5-2.5 MG/3 ML AMPUL NEB SCH ×3 (01:04→12:14)
--- NOTE | 2016-12-15 07:36 | ER Document Report ---
ED Psych Disorder / Suicide - General Chief Complaint: Psych Problem Stated Complaint: IVC-Dementia Time Seen by Provider: 12/13/16 16:57 Mode of Arrival: Medic Information source: Patient, [facility] Records Cannot obtain history due to: Dementia TRAVEL OUTSIDE OF THE [place] IN LAST 30 DAYS: No - HPI Patient complains to provider of: Other - Patient found living in unsuitable conditions when APS came to home to investigate Onset: Yesterday Suicide Risk Factors: Age >65, Male, Substance abuse, Other - Dementia Situational problems related to: Other - living conditions of home Normal mood: Yes Associated symptoms: Normal affect, Normal mood Similar symptoms previously: Yes Recently seen / treated by doctor: Yes Notes: Patient is a 71 year old male who presented to the ED yesterday via EMS after DSS/APS made a visit to the home after receiving a report. DSS/APS contacted [facility] due to concerns for the patient's living conditions, refusal to get medical attention, and difficulty answering questions. Please note this patient was seen by the [facility] Behavioral Health team a couple weeks ago when he was admitted to an [facility] floor for medical. At that time a Capacity Evaluation had been requested due to concerns for patient's well being and his ability to care for self. Capacity screening results suggested significant impairment across multiple domains and a guardian was recommended. He had been accepted to [facility] for rehabilitation and was transferred there. Today patient said he did not remember this clinician or answering a bunch of questions a couple weeks ago when he was a medical admit. He reported he remembers why he is in the ED, said this clinician knows why, and asked why he needed to answer the question. With further persistence and prompting patient stated he has "had time to reflect, it was a bad period, not bad like [place], there was a misunderstanding, it was like a time warp." He said he did not recall making any SI statements. This clinician asked attending ED physician yesterday if a head CT could be completed since there had not been one on file at time of the capacity screening referenced above. Head CT dated 12/13/2016 had the following findings : prominent ventricles, areas of low density in the white matter most likley due to chronic microvascular ischemic changes, and age related involutional change. Impression was: Chronic changes of atrophy and microvascular ischemia. This language suggests neurodegenerative processes. Patient was alert and oriented to place. Mood was irritable with congruent affect. He denied SI/HI and did not recall making any SI statements. He did not appear to be responding to internal stimuli AEB fair eye contact and answering questions when addressed. Thought processes were tangential and he seemed to be combining different experiences. Conversational speech was WNL for rate, tone and prosody. Intellectual abilities are impaired as a result of dementia. Insight, judgment and impulse control are also impaired due to dementia. Coordinated care with DSS/APS, Kaye ([phone]), as well as ED Social Work, Keon. DSS/APS identified they received the report within the past few days and Tuesday was her first visit. She is the one who contacted [facility]. Diagnosis: 1. 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 303.90 (F10.20) Alcohol Use Disorder, Moderate to Severe Impression/Plan: Patient is psychiatrically cleared by the [facility] Behavioral Health team at this time. IVC can be rescinded since behaviors and concerns are related to social issues (living conditions, dementia diagnosis, capacity screening from a couple weeks ago that recommended a guardian) which DSS/APS and social work are more appropriate for. Dementia is considered a medical diagnosis versus a mental health diagnosis. Recommend further follow up with neurology. Consulted with Dr. Nunez regarding the management and care of patient. - Related Data Allergies/Adverse Reactions: No Known Allergies Allergy (Verified 10/23/16 16:22) Past Medical History - General Information source: Patient, [facility] Records - Social History Smoking Status: Current Every Day Smoker Cigarette use (# per day): Yes - 2 ppd Chew tobacco use (# tins/day): No Frequency of alcohol use: Heavy Drug Abuse: None Family History: Reviewed & Not Pertinent - Past Medical History Cardiac Medical History: Denies: Hx Congestive Heart Failure, Hx DVT, Hx Heart Attack, Hx Hypercholesterolemia, Hx Hypertension, Hx Pulmonary Embolism Pulmonary Medical History: Denies: Hx Asthma, Hx COPD, Hx Sleep Apnea Neurological Medical History: Denies: Hx Seizures Endocrine Medical History: Denies: Hx Diabetes Mellitus Type 1, Hx Diabetes Mellitus Type 2, Hx Hyperthyroidism, Hx Hypothyroidism GI Medical History: Denies: Hx Cirrhosis, Hx Gastroesophageal Reflux Disease, Hx Hepatitis Musculoskeltal Medical History: Reports Hx Arthritis Psychiatric Medical History: Reports: Hx Dementia Denies: Hx Depression Infectious Medical History: Denies: Hx C-Diff, Hx Hepatitis, Hx MRSA Past Surgical History: Reports: Hx Orthopedic Surgery - toe amputation, Other - cataract Physical Exam - Vital signs Vitals: Temp Pulse Resp BP Pulse Ox 97.4 F 98 19 128/86 H 95 12/13/16 16:56 12/13/16 16:56 12/13/16 16:56 12/13/16 16:56 12/13/16 16:56 Course - Vital Signs Vital signs: Temp Pulse Resp BP Pulse Ox 97.5 F 88 17 102/70 94 12/15/16 02:33 12/15/16 02:33 12/15/16 02:33 12/15/16 02:33 12/15/16 02:33 - Laboratory Result Diagrams: 12/13/16 18:29 12/13/16 18:29 Laboratory results interpreted by me: 12/13/16 12/13/16 18:29 18:29 RBC 3.69 L Hgb 11.6 L Hct 35.7 L RDW 14.1 H Calcium 7.8 L Direct Bilirubin 0.5 H Alkaline Phosphatase 131 H Albumin 2.3 L Salicylates < 1.0 L Acetaminophen < 10 L Discharge - Discharge Clinical Impression: Involuntary commitment, Tobacco dependency Leg ulcer, left Qualifiers: Non-pressure ulcer stage: limited to breakdown of skin Qualified Code(s): L97.921 - Non-pressure chronic ulcer of unspecified part of left lower leg limited to breakdown of skin Decubitus ulcer Qualifiers: Pressure ulcer location: sacral region Pressure ulcer stage: stage 2 Qualified Code(s): L89.152 - Pressure ulcer of sacral region, stage 2 Alcohol dependency Qualifiers: Substance use status: uncomplicated Qualified Code(s): F10.20 - Alcohol dependence, uncomplicated Condition: Stable Disposition: PSYCH HOSP/UNIT Scribe Attestation: 12/14/16 00:17 I personally performed the services described in the documentation, reviewed and edited the documentation which was dictated to the scribe in my presence, and it accurately records my words and actions.
[2016-12-15] MEDS: DIVALPROEX SODIUM 500 MG TAB.SR.24H PO SCH (11:01)
[2016-12-15 11:49] LABS: APPEARANCE,URINE SLIGHTLY-CLOUDY; BILIRUBIN,URINE NEGATIVE (NEGATIVE); GLUCOSE, URINE NEGATIVE (NEGATIVE); KETONES,URINE NEGATIVE (NEGATIVE); LEUKOCYTE ESTERASE,URINE SMALL (NEGATIVE); NITRITE,URINE NEGATIVE (NEGATIVE); PROTEIN,URINE NEGATIVE (NEGATIVE); URINE SPECIFIC GRAVITY 1.011; UROBILINOGEN,URINE NEGATIVE mg/dL (<2.0)
[2016-12-15 12:00] LABS: URINE BARBITURATES SCREEN NEGATIVE; URINE METHADONE SCREEN NEGATIVE; URINE OPIATES LOW NEGATIVE; URINE PHENCYCLIDINE SCREEN NEGATIVE
[2016-12-15 13:25] LABS: ABSOLUTE BASOPHILS # (AUTO) 0.1 10^3/uL (0.0-0.2); ABSOLUTE EOSINOPHILS # (AUTO) 0.3 10^3/uL (0.0-0.6); ABSOLUTE LYMPHOCYTES (AUTO) 1.8 10^3/uL (0.5-4.7); ABSOLUTE MONOCYTES (AUTO) 0.6 10^3/uL (0.1-1.4); ABSOLUTE NEUT (AUTO) 5.4 10^3/uL (1.7-8.2); BASOPHILS % (AUTO) 1.2 % (0-2); EOSINOPHILS % (AUTO) 3.9 % (0-6); HEMATOCRIT 33.3 % (37.9-51.0); HEMOGLOBIN 10.9 g/dL (13.5-17.0); HGB HCT DIFFERENCE -0.6; LYMPHOCYTES % (AUTO) 22.1 % (13-45); MEAN CORPUSCULAR HEMOGLOBIN 31.6 pg (27.0-33.4); MEAN CORPUSCULAR HGB CONC 32.7 g/dL (32.0-36.0); MEAN CORPUSCULAR VOLUME 96 fl (80-97); MONOCYTES % (AUTO) 7.3 % (3-13); RED BLOOD COUNT 3.45 10^6/uL (4.35-5.55); RED CELL DISTRIBUTION WIDTH 13.9 % (11.5-14.0); SEGMENTED NEUTROPHILS % (AUTO) 65.5 % (42-78); WHITE BLOOD COUNT 8.2 10^3/uL (4.0-10.5)
[2016-12-15 13:42] LABS: ALANINE AMINOTRANSFERASE 29 U/L (21-72); ALBUMIN 1.9 g/dL (3.5-5.0); ALKALINE PHOSPHATASE 106 U/L (38-126); ANION GAP 8 (5-19); ASPARTATE AMINO TRANSFERASE 42 U/L (17-59); BILIRUBIN,DIRECT 0.4 mg/dL (0.0-0.4); BILIRUBIN,TOTAL 0.5 mg/dL (0.2-1.3); BLOOD UREA NITROGEN 9 mg/dL (7-20); CALCIUM 7.6 mg/dL (8.4-10.2); CARBON DIOXIDE 29 mmol/L (22-30); CHLORIDE 103 mmol/L (98-107); GLUCOSE 97 mg/dL (75-110); POTASSIUM 4.1 mmol/L (3.6-5.0); SODIUM 139.7 mmol/L (137-145); TOTAL PROTEIN 6.6 g/dL (6.3-8.2)
--- NOTE | 2016-12-15 14:50 | ER Document Report ---
Doctor's Note Notes: 12/15/16 14:48 At the request of mental health provider, patient was reassessed. Laboratory studies done earlier today were reviewed. Patient has been cleared for discharge home by mental health. Mental health is arranging for close outpatient follow-up. Patient when interviewed, states he feels fine and wishes to go home. Patient agrees with discharge plan. Discharge - Discharge Clinical Impression: Tobacco dependency Leg ulcer, left Qualifiers: Non-pressure ulcer stage: limited to breakdown of skin Qualified Code(s): L97.921 - Non-pressure chronic ulcer of unspecified part of left lower leg limited to breakdown of skin Decubitus ulcer Qualifiers: Pressure ulcer location: sacral region Pressure ulcer stage: stage 2 Qualified Code(s): L89.152 - Pressure ulcer of sacral region, stage 2 Alcohol dependency Qualifiers: Substance use status: uncomplicated Qualified Code(s): F10.20 - Alcohol dependence, uncomplicated Condition: Stable Disposition: HOME, SELF-CARE Instructions: Depression ([facility]) Additional Instructions: Follow-up with your primary care provider as well as outpatient mental health. Return to the emergency department if worse or for any other problems. Scribe Attestation: 12/14/16 00:17 I personally performed the services described in the documentation, reviewed and edited the documentation which was dictated to the scribe in my presence, and it accurately records my words and actions.
[2016-12-15 16:09] VITALS: BP 97/61
[2016-12-15] MEDS ORDERED: DIVALPROEX SODIUM 500 MG TAB.SR.24H PO SCH (20:14)
== END 2016-12-15 16:25 | disposition home or self-care (01) ==
LOC: ER 16:51
DX: L97.921 Non-pressure chronic ulcer of unspecified part of left lower leg limited to breakdown of skin (principal); L89.152 Pressure ulcer of sacral region, stage 2; F10.20 Alcohol dependence, uncomplicated; F03.90 Unspecified dementia, unspecified severity, without behavioral disturbance, psychotic disturbance, mood disturbance, and anxiety; F17.200 Nicotine dependence, unspecified, uncomplicated
CPT/HCPCS: 93005; 99285; 87491; 87591; 36415; 80307 ×4; 85025; 80053; 81001; 71010; 70450; 93010; A9270 ×6; J7620